=== PATIENT | female | born 1970 | race Caucasian/White ===

== ENCOUNTER 2025-02-24 21:53 | Emergency (ER) | payer MEDICARE, MEDICAID, SELFPAY ==
[2025-02-24 21:58] VITALS: BP 119/67; PULSE 90; RESP 20; TEMP 37.3; O2SAT 97; BMI 25.4
--- OUTSIDE RECORDS SUMMARY | 2025-02-24 22:22 | XMS_ITS | Encounter Summary ---
Author Organization [facility] Address [address] [place] [address] Care Team Providers Care Station Jailer Name Role Phone Brett Fleming MD Primary Care Provider [phone] Reason for Visit * Reason Onset Date Comments Lonnie - Lab order 02/20/2025 Encounter Details Date Type Department Care Team ([facility] st Contact Info) Description 02/20/2025 Telephone Internal Medicine - [place] [facility] [address] [place] [address] Brett Fleming MD [address] [address] Fleming - Lab order Social History Tobacco Use Types Packs/Day Years Used Date Smoking Tobacco: Former Cigarettes 0.5 26 S tarted: 1989 Alcohol Use Standard Drinks/Week Comments No 0 (1 standard drink = 0.6 oz pur e alcohol) Housing Instability Answer Date Recorde d Are you worried that in the next 2 months you may not have stable housing? No 02/11/2025 Food Access & Nutrition Answer Date Rec orded Do you have access to a vari ety of food including fruits and vegetables? No 02/11/2025 Access to Healthcare Answer Date Record ed Within the last 3 months, ho w many times did you visit the emergency department for your medical care? 0 02/11/2025 Health Literacy Answer Date Recorded How often do you need to hav e someone help you when you read instructions, pamphlets, or other written material from your doctor or pharmacy? Often 02/11/2025 Caregiver: How often do you need to have someone help you when you read instructions, pamphlets, or other written material from your doctor or pharmacy? Not on file 02/11/2025 Financial Risk Answer Date Recorded How hard is it for you to pa y for the very basics like food, housing, medical care, and air conditioning / heating? Very hard 02/11/2025 Transportation Answer Date Recorded Has the lack of transportati on kept you from meetings, work, or from getting things needed for daily living? Yes Has the lack of transportati on kept you from medical appointments or from getting medications? Yes 02/11/2025 Social Isolation Answer Date Recorded How often do you feel lonely or isolated from those around you? Sometimes 02/11/2025 Food Risk Answer Date Recorded Within the past 12 months we worried whether our food would run out before we got money to buy more. Often true 02/11/2025 Within the past 12 months th e food we bought just didn't last and we didn't have money to get more. Often true 02/11/2025 Dependent Care Answer Date Recorded Do you need help finding or paying for care for your loved ones. For example, early childhood aide classroom or elderly care for an older adult? No 02/11/2025 Education Answer Date Recorded Do you think completing more education or training, like finishing a GED, going to college, or learning a trade, would be helpful for you? Yes 02/11/2025 Employment and Income Answer Date Recor ded During the last four weeks, have you been actively looking for work? No 02/11/2025 Living Situation Answer Date Recorded What is your living situation? 0 02/11/2025 Education Answer Date Recorded What is the highest level of school you have completed or the highest degree you have received? Bachelor's degree (e.g., BA, AB, BS) 02/12/2025 Comments Unknown Sex and Gender Information Value Date Recorded Sex Assigned at Female 02/14/2025 12:38 PM EDT Legal Sex Female 7:44 PM EST Gender Identity Female 02/14/2025 12:38 PM EDT Sexual Orientation Not on file documented as of this encounter Progress Notes * Susan Cuba MA - 02/20/2025 4:14 PM EDT Pt aware. * Brett Fleming MD - 02/20/2025 4:01 PM EDT Lab ordered * Frank Gonzalez MA - 02/20/2025 2:[address] tb test order * Gabbie Stroud - 02/20/2025 1:35 PM EDT Pt called and stated she is in a Program that requires her to get TB testing done. She requested ifshe can have this ordered for her. Please advise. Please call pt when lab is ordered, . documented in this encounter Plan of Treatment Upcoming Encounters Date Type Department Care Team (Late st Contact Info) Description 08/14/2025 3:00 PM EDT Office Visit Internal Medicine - [address] [phone] Brett Fleming MD [address] [address] documented as of this encounter Visit Diagnoses Diagnosis Adult general medical examination- Primary Unspecified general medical examination documented in this encounter Additional Health Concerns Assessment Noted Time PHQ-9 Depression Total Score: 16 025 4:59 PM EDT documented as of this encounter Care Teams Station Jailer Relationship Specialty Start Date End Date Brett Fleming MD [address] [place] [id number] PCP - General Internal Medicine 08/20/24 documented as of this encounter
--- OUTSIDE RECORDS SUMMARY | 2025-02-24 22:22 | XMS_ITS | Encounter Summary ---
Author Organization [facility] Address [address] [place] [address] Care Team Providers Care Pre K Teacher Name Role Phone Brett Fleming MD Primary Care Provider [phone] Reason for Visit * Reason Onset Date Comments faxed form 02/20/2025 [facility] Encounter Details Date Type Department Care Team ([facility] st Contact Info) Description 02/20/2025 Telephone Internal Medicine - [address] [place] [address] Emilia Tyler MA faxed form ([facility]) Social History Tobacco Use Types Packs/Day Years [...] your loved ones. For example, early childhood associate teacher or elderly care for an older adult? [...] as of this encounter Progress Notes * Emilia Tyler MA - 02/20/2025 4:21 PM EDT [facility] pcp order form Attached office note 02/12/25, med & dx list TB test ordered. documented in this encounter Plan of Treatment Upcoming Encounters Date Type Department Care Team (Late st Contact Info) Description 08/14/2025 3:00 PM EDT Office Visit Internal Medicine - [place] [address] [address] Brett Fleming MD [address] [address] documented as of this encounter Visit Diagnoses Not on filedocumented in this encounter Additional Health Concerns Assessment Noted Time PHQ-9 Depression Total Score: 16 025 4:59 PM EDT documented as of this encounter Care Teams Pre K Teacher Relationship Specialty Start Date End Date Brett Fleming MD [address] [address] PCP - General Internal Medicine 08/20/24 documented as of this encounter
--- OUTSIDE RECORDS SUMMARY | 2025-02-24 22:22 | XMS_ITS | Clinical Summary ---
Author Organization [facility] Address [address] [place] [address] Phone Care Team Providers Care Pheresis Nurse Name Role Phone Brett Fleming MD Primary Care Provider [phone] Allergies Active Allergy Reactions Criticality Noted Date Comments Codeine 10/30/2024 Guaifenesin 04/21/2006 guiatuss AC caused sever skin sensations / Penicillins 01/03/2006 Sulfa (Sulfonamide Antibiotics) 01/03/2006 Medications buPROPion SR (WELLBUTRIN SR) 200 mg 12 hr tablet Take 1 Tablet by mouth 2 times daily. Active busPIRone (BUSPAR) 15 mg tablet Take 1 Tablet by mouth 3 times daily. Active diphenoxylate-atr opine (LOMOTIL) 2.5-0.025 mg per tablet Take 1 Tablet by mouth 4 times daily as needed. Active DULoxetine (Drizalma Sprinkle) 60 mg capsule, delayed rel sprinkle Take by mouth. Active ibandronate (BONIVA) 150 mg tablet Take 1 Tablet by mouth every 30 days. 08/13/20 24 025 Active rimegepant (Nurtec) 75 mg dispersible tablet Take by mouth. Active dicyclomine (BENTYL) 20 mg tablet Take 1 tablet (20 mg total) by mouth 4 (four) times a day. 120 each 11 10/30/19 25 026 Active cholestyramine (QUESTRAN) 4 gram powder Take 1 packet (4 g total) by mouth 3 (three) times a day with meals. Dissolve in 8 oz of liquid and drink before a meal 90 packet 11 10/30/19 026 Active ondansetron ODT (ZOFRAN-ODT) 4 mg disintegrating tablet DISSOLVE 1 TABLET ON THE TONGUE EVERY 8 HOURS NEEDED FOR NAUSEA 90 tablet 1 02/05/20 25 Active cloNIDine (CATAPRES) 0.1 mg tablet TAKE 1 TABLET BY MOUTH EVERY NIGHT AT BEDTIME NEEDED TO PREVENT NIGHT SWEATS DURING SLEEP 02/01/20 25 Active busPIRone (BUSPAR) 5 mg tablet Take 1 tablet (5 mg total) by mouth. 01/18/20 25 Active amphetamine-dextr oamphetamine (ADDERALL) 5 mg tablet Take 1 tablet (5 mg total) by mouth 2 (two) times a day. Max Daily Amount: 10 mg 01/03/20 25 Active clonazePAM (KlonoPIN) 1 mg tablet Take 1 tablet (1 mg total) by mouth 1 (one) time each day if needed. for anxiety Max Daily Amount: 1 mg 11/30/19 25 Active propranoloL (INDERAL) 10 mg tablet Take 1 tablet (10 mg total) by mouth 2 (two) times a day. Active famotidine (PEPCID) 40 mg tablet Take 1 tablet (40 mg total) by mouth 2 (two) times a day. 180 each 1 02/13/20 Active dicyclomine (BENTYL) 10 mg capsule Take 1 Capsule by mouth 4 times daily (before meals and nightly). 08/13/20 025 Discontinued(D ose adjustment) famotidine (PEPCID) 40 mg tablet Take 1 Tablet by mouth daily. 30 min before break fast 08/13/20 025 Discontinued loperamide (IMODIUM A-D) 2 mg tablet Take 1 Tablet by mouth 4 times daily as needed for Diarrhea. 08/13/20 025 Discontinued(N on-compliance) ondansetron ODT (ZOFRAN-ODT) 4 mg disintegrating tablet Take 1 Tablet by mouth every 8 hours as needed for Nausea. 08/13/20 24 025 Discontinued traZODone (DESYREL) 50 mg tablet Take 1 Tablet by mouth at bedtime. 025 Discontinued(N on-compliance) famotidine (PEPCID) 40 mg tablet Take 1 tablet (40 mg total) by mouth 1 (one) time each day. 90 tablet 1 02/08/20 25 025 Discontinued(R eorder) Active Problems Problem Noted Date Diagnosed Date Pain in joint, multiple sites 07/18/2006 Disturbance of skin sensation 07/18/2006 Overview (08/31/2024): diffuse pain Irritable bowel syndrome 07/18/2006 Tobacco use disorder 07/18/2006 Anxiety state 03/03/2006 Overview (08/31/2024): Panic attacks--psychiatry Esophageal reflux 03/03/2006 Lumbago 03/03/2006 Overview (08/31/2024): chronic: PT Shots tried Encounters Date Type Department Care Team Description 02/20/2025 Telephone Internal Medicine [facility] [address] [phone] Emilia Tyler [place] faxed form ([facility]care) 02/20/2025 Telephone Internal Medicine [facility] [address] [phone] Brett Fleming MD Khan - Lab order 02/12/2025 4:00 PM EDT Office Visit Internal Medicine [facility] [address] [phone] Brett Fleming MD Encounter for annual physical exam (Primary Dx); Anxiety state; Tobacco use disorder; Pain in both hands; Gastroesophageal reflux disease, unspecified whether esophagitis present; Bilateral carpal tunnel syndrome; Vitamin D deficiency; Encounter for lipid screening for cardiovascular disease; Other abnormal glucose; Other fatigue; Perimenopause; Localized osteoarthritis of hand, unspecified laterality; Encounter for screening mammogram for malignant neoplasm of breast; Chronic midline thoracic back pain 12/06/2024 12:46 PM EST - 12/06/2024 11:59 PM EST Hospital Encounter [facility] Scan [address] [place] [phone] Diarrhea, unspecified type; Nausea and vomiting, unspecified vomiting type; Incontinence of feces, unspecified fecal incontinence type; Abdominal cramping; Neutropenia, unspecified type (CMS/HCC V24); Disease of stomach and duodenum, unspecified; Other iron deficiency anemias Discharge Disposition: Home or Self Care from Last 3 Months Immunizations Name Administration Dates Next Due Td Tetanus diptheria (Tdvax) 7yo and older 12/03 Tdap Tetanus diptheria acell ular pertussis (Boostrix; Adacel) 7yo and older 02/12/2025 Surgical History Surgery Date Site/Laterality Comments CHOLECYSTECTOMY 05-04-04 PROCEDURE: HISTORICAL CHOLECYSTECTOMY Medical History Medical History Date Comments Anxiety state, unspecified 03/03/2006 DX:An xiety state, unspecified; COMMENT: Panic attacks Lumbago DX:Lumbago; COMM ENT: chronic: PT Shots tried Esophageal reflux 03/03/2006 DX:Esophageal reflux Irritable bowel syndrome DX:Irri table bowel syndrome Myalgia and myositis, unspecified DX:Myalgia and myositis, unspecified Unspecified asthma(493.90) DX:Un specified asthma(493.90) Family History Medical History Relation Name Comments Alcohol/Drug Brother 1 alcohol Diabetes Brother 2 not same brothe r Diabetes Father Other: pacemaker Father Anxiety disorder Mother Relation Name Status Comments Brother 1 Brother 2 Brother 3 Father Maternal Grandfather Maternal Grandmother Mother Paternal Grandfather Paternal Grandmother Social History Tobacco Use Types Packs/Day Years Used Date Smoking Tobacco: Former Cigarettes 0.5 26 S tarted: 1988 Tobacco Cessation:Counseling Given: Not Answered Alcohol Use Standard Drinks/Week Comments No 0 [...] care for your loved ones. For example, child development specialist or elderly care for an older adult? [...] PM EDT Sexual Orientation Not on file Obstetrics History Last Filed Vital Signs Vital Sign Reading Time Taken Comments Blood Pressure 118/80 02/12/2025 3:53 PM EDT Pulse 80 02/12/2025 3:53 PM EDT Temperature - - Respiratory Rate - - Oxygen Saturation 98% 02/12/2025 3:53 PM EDT Inhaled Oxygen Concentration - - Weight 72.1 kg (159 lb) 02/12/2025 3:53 PM EDT Height 154.9 cm (5' 1 ) 10/30/2024 12:56 PM EST Body Mass Index 30.04 10/30/2024 12:56 PM EST Plan of Treatment Upcoming Encounters Date Type Department Care Team (Late st Contact Info) Description 08/14/2025 3:00 PM EDT Office Visit Internal Medicine - [place] 175 [facility] [address] [place] [phone] Brett Fleming MD 175 [facility] [address] [place] [address] Health Maintenance Due Date Last Done Comments Breast Cancer Screening 1971 Hepatitis B Vaccines (1 of 3 - 19+ 3-dose series) 1990 Cervical Cancer Screening: P ap Smear 1992 Pneumococcal Vaccine: 50+ Years (1 of 1 - PCV) 2021 Zoster Vaccines (1 of 2) 2021 COVID-19 Vaccine (2023-2 5 season) 2024 Colorectal Cancer Screening: Colonoscopy 08/20/2024 HIV Screening 08/20/2024 Medicare Annual Wellness Visit 08/20/2024 Osteoporosis Screening (Bone Density Screening) 08/20/2024 Influenza Vaccine (Season Ended) 2025 Depression Screening 02/11/2026 02/11/2025 Social Influencers of Health Screening 02/11/2026 02/11/2025 Cholesterol Screening (Lipid Panel) 02/22/2030 02/22/2025, 10/11/2024, 12/03/2002 DTaP,Tdap,and Td Vaccines (3 - Td or Tdap) 02/12/2035 02/12/2025, 12/03/2002 Hepatitis C Screening Completed 10/11/2024 HIB Vaccines Aged Out No longer eligi ble based on patient's age to complete this topic HPV Vaccines Aged Out No longer eligi ble based on patient's age to complete this topic Hepatitis A Vaccines Aged Out No long er eligible based on patient's age to complete this topic IPV Vaccines Aged Out No longer eligi ble based on patient's age to complete this topic MMR Vaccines Aged Out No longer eligi ble based on patient's age to complete this topic Meningococcal ACWY Vaccine Aged Out N o longer eligible based on patient's age to complete this topic Meningococcal B Vaccine Aged Out No l onger eligible based on patient's age to complete this topic Pneumococcal Vaccine: Pediatrics (0 to 5 Years) and At-Risk Patients (6 to 64 Years) Aged Out No longer eligible b ased on patient's age to complete this topic RSV Immunization Patients Under 20 months Aged Out No longer eligible b ased on patient's age to complete this topic Varicella Vaccines Aged Out No longer eligible based on patient's age to complete this topic Procedures Procedure Name Priority Date/Time Associated Diagnosis Comments TRIIODOTHYRONINE FREE Routine 02/22/2025 12:33 PM EDT Encounter for annual physical exam Other fatigue FREE THYROXINE WITH REFLEX TO FREE TRIIODOTHYRONINE Routine 02/22/2025 12:33 PM EDT Encounter for annual physical exam Other fatigue INTERFERON GAMMA INTERPRETATION Routine 02/22/2025 12:33 PM EDT Adult general medical examination LACTATE DEHYDROGENASE Routine 02/22/2025 12:33 PM EDT Diarrhea, unspecified type Nausea and vomiting, unspecified vomiting type Incontinence of feces, unspecified fecal incontinence type Abdominal cramping CBC WITH AUTO DIFFERENTIAL Routine 02/22/2025 12:33 PM EDT Diarrhea, unspecified type Nausea and vomiting, unspecified vomiting type Incontinence of feces, unspecified fecal incontinence type Abdominal cramping INTERFERON GAMMA ANTIGEN 2 Routine 02/22/2025 12:33 PM EDT Adult general medical examination INTERFERON GAMMA ANTIGEN 1 Routine 02/22/2025 12:33 PM EDT Adult general medical examination INTERFERON GAMMA MITOGEN Routine 02/22/2025 12:33 PM EDT Adult general medical examination INTERFERON GAMMA NIL Routine 02/22/2025 12:33 PM EDT Adult general medical examination CBC AND DIFFERENTIAL Routine 02/22/2025 12:33 PM EDT Diarrhea, unspecified type Nausea and vomiting, unspecified vomiting type Incontinence of feces, unspecified fecal incontinence type Abdominal cramping COMPREHENSIVE METABOLIC PANEL Routine 02/22/2025 12:33 PM EDT Diarrhea, unspecified type Nausea and vomiting, unspecified vomiting type Incontinence of feces, unspecified fecal incontinence type Abdominal cramping FERRITIN Routine 02/22/2025 12:33 PM EDT Diarrhea, unspecified type Nausea and vomiting, unspecified vomiting type Incontinence of feces, unspecified fecal incontinence type Abdominal cramping Disease of stomach and duodenum, unspecified IRON Routine 02/22/2025 12:33 PM EDT Diarrhea, unspecified type Nausea and vomiting, unspecified vomiting type Incontinence of feces, unspecified fecal incontinence type Abdominal cramping Other iron deficiency anemias LIPASE Routine 02/22/2025 12:33 PM EDT Diarrhea, unspecified type Nausea and vomiting, unspecified vomiting type Incontinence of feces, unspecified fecal incontinence type Abdominal cramping AMYLASE Routine 02/22/2025 12:33 PM EDT Diarrhea, unspecified type Nausea and vomiting, unspecified vomiting type Incontinence of feces, unspecified fecal incontinence type Abdominal cramping HEMOGLOBIN A1C Routine 02/22/2025 12:33 PM EDT Encounter for annual physical exam Other abnormal glucose VITAMIN B12 Routine 02/22/2025 12:33 PM EDT Encounter for annual physical exam Other fatigue LIPID PANEL WITH REFLEX TO DIRECT LDL Routine 02/22/2025 12:33 PM EDT Encounter for annual physical exam Encounter for lipid screening for cardiovascular disease VITAMIN D 25 HYDROXY Routine 02/22/2025 12:33 PM EDT Encounter for annual physical exam Vitamin D deficiency THYROID STIMULATING HORMONE WITH REFLEX TO FREE T4 AND FREE T3 Routine 02/22/2025 12:33 PM EDT Encounter for annual physical exam Other fatigue INTERFERON GAMMA FOR TB, QUALITATIVE Routine 02/22/2025 12:33 PM EDT Adult general medical examination CT ABDOMEN PELVIS W CONTRAST Routine 12/06/2024 2:21 PM EST Diarrhea, unspecified type Nausea and vomiting, unspecified vomiting type Incontinence of feces, unspecified fecal incontinence type Abdominal cramping Neutropenia, unspecified type (CMS/HCC V24) Disease of stomach and duodenum, unspecified Other iron deficiency anemias HEPATITIS C ANTIBODY Routine 10/11/2024 2:01 PM EST Routine general medical examination at a health care facility Anxiety attack Irritable bowel syndrome with diarrhea from Last 3 Months or Most Recently Relevant to Health Maintenance Results * Interferon gamma interpretation (02/22/2025 12:33 PM EDT) [facility] Signature Quantiferon Plus Interpretation Negative Negative LAB CHEMISTRY METHOD 02/23/2025 10:00 AM EDT [facility] Blood Venous blood specimen / Unknown Venipuncture / Unknown 02/22/2025 12:33 PM EDT 02/22/2025 12:33 PM EDT Brett Fleming MD LAB BLOOD ORDERABLES Final Resul t Performing Organization Address [facility]/State/ZIP Co de Phone Number [facility] [address] [place] [address], [place] [phone] * Interferon gamma antigen 2 (02/22/2025 12:33 PM EDT) Blood Venous blood specimen / Unknown Venipuncture / Unknown 02/22/2025 12:33 PM EDT 02/22/2025 12:33 PM EDT Brett Fleming MD LAB BLOOD ORDERABLES Final Resul t [facility] [address] [place] [address], [place] [phone] * Inteferon gamma antigen 1 (02/22/2025 12:33 PM EDT) Blood Venous blood specimen / Unknown Venipuncture / Unknown 02/22/2025 12:33 PM EDT 02/22/2025 12:33 PM EDT us Brett Fleming MD LAB BLOOD ORDERABLES Final Resul t Performing Organization Address City/[facility]/ZIP Co de Phone Number [facility] [address] [place] [address], [place] [phone] * Interferon gamma mitogen (02/22/2025 12:33 PM EDT) Blood Venous blood specimen / Unknown Venipuncture / Unknown 02/22/2025 12:33 PM EDT 02/22/2025 12:33 PM EDT us Brett Fleming MD LAB BLOOD ORDERABLES Final Resul t Performing Organization Address City/[facility] Co de Phone Number [facility] [address] [place] [address], [place] [phone] * Interferon gamma NIL (02/22/2025 12:33 PM EDT) Blood Venous blood specimen / Unknown Venipuncture / Unknown 02/22/2025 12:33 PM EDT 02/22/2025 12:33 PM EDT us Brett Fleming MD LAB BLOOD ORDERABLES Final Resul t Performing Organization Address [facility] Co de Phone Number [facility] [address] [place] [address], [place] [phone] * (ABNORMAL) Thyroid stimulating hormone with reflex to free t4 and free t3 (02/22/2025 12:33 PM EDT) TSH 0.13(L) 0.40 - 4.00 mcIU/mL LAB CHEMISTRY METHOD 02/22/2025 7:03 PM EDT [facility] Blood Venous blood specimen / Unknown Venipuncture / Unknown 02/22/2025 12:33 PM EDT 02/22/2025 12:33 PM EDT Brett Fleming MD LAB BLOOD ORDERABLES Final Resul t Performing Organization Address [facility]/ZIP Co de Phone Number [facility] [address] [place] [address], [place] [phone] * Free thyroxine with reflex to free triiodothyronine (02/22/2025 12:33 PM EDT) Free T4 1.14 0.70 - 1.80 ng/dL LAB CHEMISTRY METHOD 02/22/2025 8:10 PM EDT [facility] Blood Venous blood specimen / Unknown Venipuncture / Unknown 02/22/2025 12:33 PM EDT 02/22/2025 12:33 PM EDT Brett Fleming MD LAB BLOOD ORDERABLES Final Resul t Performing Organization Address [facility] de Phone Number [facility] [address] [place] [address], [place] [phone] * Lipid panel with reflex to direct LDL (02/22/2025 12:33 PM EDT) Cholesterol 170 0 - 200 mg/dL LAB CHEMISTRY METHOD 02/22/2025 6:15 PM EDT [facility] Triglycerides 90 0 - 150 mg/dL LAB CHEMISTRY METHOD 02/22/2025 6:15 PM EDT [facility] HDL 63 >=40 mg/dL LAB CHEMISTRY METHOD 02/22/2025 6:15 PM EDT [facility] LDL Calculated 89 0 - 100 mg/dL LAB CHEMISTRY METHOD 02/22/2025 6:15 PM EDT [facility] VLDL Cholesterol [place] 18 mg/dL LAB CHEMISTRY METHOD 02/22/2025 6:15 PM EDT [facility] Non HDL Chol. (LDL+VLDL) 107 <145 mg/dL LAB CHEMISTRY METHOD 02/22/2025 6:15 PM EDT [facility] Chol/HDL Ratio 2.7 0.0 - 4.4 LAB CHEMISTRY METHOD 02/22/2025 6:15 PM EDT [facility] Blood Venous blood specimen / Unknown Venipuncture / Unknown 02/22/2025 12:33 PM EDT 02/22/2025 12:33 PM EDT us Brett Fleming MD LAB BLOOD ORDERABLES Final Resul t [facility] [address] [place] [address], [place] [phone] * (ABNORMAL) CBC auto differential (02/22/2025 12:33 PM EDT) WBC 6.3 4.8 - 10.8 K/mcL LAB HEMETOLOGY METHOD 02/22/2025 2:25 PM EDT [facility] RBC 3.90 3.80 - 4.80 M/mcL LAB HEMETOLOGY METHOD 02/22/2025 2:25 PM EDT [facility] Hemoglobin 12.2 11.5 - 16.0 g/dL LAB HEMETOLOGY METHOD 02/22/2025 2:25 PM EDT [facility] Hematocrit 36.7 35.0 - 47.0 % LAB HEMETOLOGY METHOD 02/22/2025 2:25 PM EDT [facility] MCV 94.1 79.0 - 98.0 FL LAB HEMETOLOGY METHOD 02/22/2025 2:25 PM EDT [facility] MCH 31.3 27.0 - 32.0 pcg LAB HEMETOLOGY METHOD 02/22/2025 2:25 PM EDT [facility] MCHC 33.2 32.0 - 37.0 g/dL LAB HEMETOLOGY METHOD 02/22/2025 2:25 PM EDT [facility] RDW 12.0 11.0 - 15.0 % LAB HEMETOLOGY METHOD 02/22/2025 2:25 PM T [facility] Platelets 366 130 - 400 K/mcL LAB HEMETOLOGY METHOD 02/22/2025 2:25 PM T [facility] MPV 10.7 7.0 - 11.0 FL LAB HEMETOLOGY METHOD 02/22/2025 2:25 PM EDT [facility] NRBC 0.0 <1.0 % LAB HEMETOLOGY METHOD 02/22/2025 2:25 PM [facility] NRBC Absolute 0.00 <0.10 K/mcL LAB HEMETOLOGY METHOD 02/22/2025 2:25 PM [facility] Neutrophils Relative 73.7 % LAB HEMETOLOGY METHOD 02/22/2025 2:25 PM [facility] Lymphocytes Relative 15.7 % LAB HEMETOLOGY METHOD 02/22/2025 2:25 PM [facility] Monocytes Relative 8.3 % LAB HEMETOLOGY METHOD 02/22/2025 2:25 PM [facility] Eosinophils Relative 0.3 % LAB HEMETOLOGY METHOD 02/22/2025 2:[facility] Basophils Relative 1.4 % LAB HEMETOLOGY METHOD 02/22/2025 2:25 PM EDT [facility] Immature Granulocytes Relative 0.6 % LAB HEMETOLOGY METHOD 02/22/2025 2:25 PM [facility] Neutrophils Absolute 4.61 1.50 - 7.00 K/mcL LAB HEMETOLOGY METHOD 02/22/2025 2:[facility] Lymphocytes Absolute 0.98(L) 1.00 - 5.00 K/mcL LAB HEMETOLOGY METHOD 02/22/2025 2:25 PM EDT [facility] Monocytes Absolute 0.52 0.20 - 1.00 K/[facility] LAB HEMETOLOGY METHOD 02/22/2025 2:25 PM EDT [facility] Eosinophils Absolute 0.02 0.00 - 0.50 K/[facility] LAB HEMETOLOGY METHOD 02/22/2025 2:25 PM EDT [facility] Basophils Absolute 0.09 0.00 - 0.20 K/[facility] LAB HEMETOLOGY METHOD 02/22/2025 2:25 PM EDT [facility] Immature Granulocytes Absolute 0.04(H) 0.00 - 0.03 K/[facility] LAB HEMETOLOGY METHOD 02/22/2025 2:25 PM EDT [facility] Blood Venous blood specimen / Unknown Venipuncture / Unknown 02/22/2025 12:33 PM EDT 02/22/2025 12:33 PM EDT us Robin OROPEZA LAB BLOOD ORDERABLES Final Resu lt [facility] [address] [place] [address], * (ABNORMAL) Vitamin D 25 hydroxy (02/22/2025 12:33 PM EDT) Vit D, 25-Hydroxy 16.0(L) 30.0 - 80.0 ng/mL LAB CHEMISTRY METHOD 02/22/2025 7:03 PM EDT [facility] Blood Venous blood specimen / Unknown Venipuncture / Unknown 02/22/2025 12:33 PM EDT 02/22/2025 12:33 PM EDT Brett Fleming MD LAB BLOOD ORDERABLES Final Resul t [facility] [address] [place] [address], * Triiodothyronine free (02/22/2025 12:33 PM EDT) T3, Free 347 230 - 420 pcg/dL LAB CHEMISTRY METHOD 02/22/2025 8:52 PM EDT [facility] Blood Venous blood specimen / Unknown Venipuncture / Unknown 02/22/2025 12:33 PM EDT 02/22/2025 12:33 PM EDT Brett Fleming MD LAB BLOOD ORDERABLES Final Resul t Performing Organization Address [facility]/ZIP Co de Phone Number [facility] [address] [place] [address], * Lipase (02/22/2025 12:33 PM EDT) Lipase 36 13 - 75 unit/L LAB CHEMISTRY METHOD 02/22/2025 6:15 PM EDT [facility] Blood Venous blood specimen / Unknown Venipuncture / Unknown 02/22/2025 12:33 PM EDT 02/22/2025 12:33 PM EDT Robin OROPEZA LAB BLOOD ORDERABLES Final Resu lt [facility] [address] [place] [address], [place] [phone] * Lactate dehydrogenase (02/22/2025 12:33 PM EDT) LDH 171 120 - 246 unit/L LAB CHEMISTRY METHOD 02/22/2025 6:15 PM EDT [facility] Blood Venous blood specimen / Unknown Venipuncture / Unknown 02/22/2025 12:33 PM EDT 02/22/2025 12:33 PM EDT Robin OROPEZA LAB BLOOD ORDERABLES Final Resu lt [facility] [address] [place] [address], [place] [phone] * Iron (02/22/2025 12:33 PM EDT) [facility] Iron 42 40 - 150 mcg/dL LAB CHEMISTRY METHOD 02/22/2025 6:15 PM EDT [facility] Blood Venous blood specimen / Unknown Venipuncture / Unknown 02/22/2025 12:33 PM EDT 02/22/2025 12:33 PM EDT us Robin OROPEZA LAB BLOOD ORDERABLES Final Resu lt Performing Organization Address [facility]/ZIP Co de Phone Number [facility] [address] [place] [address], [place] [phone] * Hemoglobin A1c (02/22/2025 12:33 PM EDT) [facility] Hemoglobin A1C 4.8 <6.5 % LAB CHEMISTRY METHOD 02/22/2025 10:18 PM EDT [facility] Mean Bld Glu Estim. 91 mg/dL LAB CHEMISTRY METHOD 02/22/2025 10:18 PM EDT [facility] Blood Venous blood specimen / Unknown Venipuncture / Unknown 02/22/2025 12:33 PM EDT 02/22/2025 12:33 PM EDT us Brett Fleming MD LAB BLOOD ORDERABLES Final Resul t Performing Organization Address [facility]/ZIP Co de Phone Number [facility] [address] [place] [address], [place] [phone] * Ferritin (02/22/2025 12:33 PM EDT) [facility] Ferritin 19 8 - 252 ng/mL LAB CHEMISTRY METHOD 02/22/2025 6:38 PM EDT [facility] Blood Venous blood specimen / Unknown Venipuncture / Unknown 02/22/2025 12:33 PM EDT 02/22/2025 12:33 PM EDT us Robin OROPEZA LAB BLOOD ORDERABLES Final Resu lt Performing Organization Address City/[facility]/ZIP Co de Phone Number [facility] [address] [place] [address], [place] [phone] * Vitamin B12 (02/22/2025 12:33 PM EDT) [facility] Vitamin B-12 648 250 - 900 pcg/mL LAB CHEMISTRY METHOD 02/22/2025 6:38 PM EDT [facility] Blood Venous blood specimen / Unknown Venipuncture / Unknown 02/22/2025 12:33 PM EDT 02/22/2025 12:33 PM EDT us Brett Fleming MD LAB BLOOD ORDERABLES Final Resul t Performing Organization Address [facility] de Phone Number [facility] [address] [place] [address], [place] [phone] * Amylase (02/22/2025 12:33 PM EDT) [facility] Amylase 68 25 - 115 unit/L LAB CHEMISTRY METHOD 02/22/2025 6:15 PM EDT [facility] Blood Venous blood specimen / Unknown Venipuncture / Unknown 02/22/2025 12:33 PM EDT 02/22/2025 12:33 PM EDT us Robin OROPEZA LAB BLOOD ORDERABLES Final Resu lt Performing Organization Address City/[facility]/ZIP Co de Phone Number [facility] [address] [place] [address], [place] [phone] * Comprehensive metabolic panel (02/22/2025 12:33 PM EDT) Sodium 141 133 - 145 mmol/L LAB CHEMISTRY METHOD 02/22/2025 6:38 PM [facility] Potassium 4.7 3.5 - 5.5 mmol/L LAB CHEMISTRY METHOD 02/22/2025 6:38 PM [facility] Chloride 109 96 - 110 mmol/L LAB CHEMISTRY METHOD 02/22/2025 6:38 PM [facility] CO2 27 21 - 32 mmol/L LAB CHEMISTRY METHOD 02/22/2025 6:38 PM [facility] Anion Gap 5 3 - 11 LAB CHEMISTRY METHOD 02/22/2025 6:38 PM [facility] Glucose 89 70 - 100 mg/dL LAB CHEMISTRY METHOD 02/22/2025 6:38 PM [facility] BUN 17 5 - 25 mg/dL LAB CHEMISTRY METHOD 02/22/2025 6:38 PM [facility] Creatinine 1.00 0.50 - 1.10 mg/dL LAB CHEMISTRY METHOD 02/22/2025 6:38 PM [facility] eGFR 68 >=60 mL/min/1. 73m2 LAB CHEMISTRY METHOD 02/22/2025 6:38 PM [facility] Comment:Calculation based on the??Chronic Kidney Disease Epidemiology Collaboration (CKD-EPI) equation refit??without adjustment for race. BUN/Creatinine Ratio 17.0 LAB CHEMISTRY METHOD 02/22/2025 6:38 PM [facility] Calcium 9.1 8.5 - 10.5 mg/dL LAB CHEMISTRY METHOD 02/22/2025 6:38 PM [facility] AST (SGOT) 14 10 - 42 unit/L LAB CHEMISTRY METHOD 02/22/2025 6:38 PM EDT [facility] ALT (SGPT) 23 10 - 60 unit/L LAB CHEMISTRY METHOD 02/22/2025 6:38 PM EDT [facility] Alkaline Phosphatase 105 42 - 121 unit/L LAB CHEMISTRY METHOD 02/22/2025 6:38 PM EDT [facility] Total Protein 6.7 6.0 - 8.0 g/dL LAB CHEMISTRY METHOD 02/22/2025 6:38 PM EDT [facility] Albumin 3.3 3.2 - 5.0 g/dL LAB CHEMISTRY METHOD 02/22/2025 6:38 PM EDT [facility] Total Bilirubin 0.4 0.0 - 1.4 mg/dL LAB CHEMISTRY METHOD 02/22/2025 6:38 PM EDT [facility] Blood Venous blood specimen / Unknown Venipuncture / Unknown 02/22/2025 12:33 PM EDT 02/22/2025 12:33 PM EDT us Robin OROPEZA LAB BLOOD ORDERABLES Final Resu lt [facility] [address] [place] [address], [place] [phone] * CT Abdomen Pelvis w Contrast (12/06/2024 2:21 PM EST) Anatomical Region Laterality Modality Body Computed Tomogra phy 12/07/2024 4:38 PM EST Impressions 12/07/2024 4:47 PM EST No acute abnormality. Large amount of fecal residue in the colon. No evidence of small bowel obstruction. Possible pelvic floor descent. ?? -------- FINAL REPORT -------- Dictated By: Rene Dallas Dictated Date: 12/07/2024 16:38 ET Assigned Physician: Rene Dallas Reviewed and Electronically Signed By: Rene Dallas Signed Date: 12/07/2024 16:47 ET Workstation ID: [id number] Transcribed By: Self Edit Transcribed Date: 12/07/2024 16:38 ET Narrative 12/07/2024 4:47 PM EST EXAMINATION: CT ABDOMEN/PELVIS WITH IV CONTRAST CLINICAL INFORMATION: Abdomen pain. ??Nausea, vomiting. Abnormal bowel habits. COMPARISON: None ?? TECHNIQUE: Multidetector CT. Helical examination of the abdomen and pelvis. Imaging performed after the IV administration of contrast. Reformatting in the coronal and sagittal planes. DLP: 1418 mGy-cm Dose optimization was performed including the use of low-dose iterative reconstruction technique with automatic exposure control based on patient size. Type of contrast: ISOVUE 370 Volume of IV contrast: 90 mL Volume of contrast discarded: 0 mL FINDINGS: LIVER: The right lobe of the liver measures 18.0 cm. The liver contour appears smooth. There is minimal prominence of the intrahepatic bile ducts. No suspicious focal liver lesion. ?? BILIARY TRACT: ??There are surgical clips in the expected region of the gallbladder. The common duct is mildly prominent but this can be seen following cholecystectomy. SPLEEN: The spleen is not enlarged. The spleen measures 7.8 cm. No focal abnormality. ?? PANCREAS: Within normal limits. ?? ADRENAL GLANDS: Normal ?? KIDNEYS: The kidneys enhance symmetrically. There is no suspicious renal mass. The renal pelvis is mildly prominent on each side. This could be physiologic. ?? GASTROINTESTINAL TRACT: ?I suspect some pelvic floor relaxation involving the posterior compartment. No rectocele. No definite defect in the sphincter mechanism. The levator sling is slightly asymmetric and smaller on the right. This is an equivocal finding. The distal colon contains a moderate amount of fecal residue. No localized wall thickening. There is a large amount of fecal residue throughout the remainder of the colon. The appendix is within normal limits. There is no small bowel dilation. No suspicious omental mass or collection. No suspicious abnormality of the stomach. There is no fat stranding. URINARY BLADDER: ??The bladder is nearly empty. No suspicious abnormality demonstrated. PELVIC VISCERA: ??Small calcification on the right side of the uterus. No definite endometrial mass. ABDOMINAL WALL: No significant hernia is appreciated. ?? LYMPHOVASCULAR STRUCTURES AND FLUID: There is no abdominal aortic aneurysm. The portal vein enhances. There are no enlarged lymph nodes. There is no free intraperitoneal fluid ?? VISUALIZED LOWER CHEST: No suspicious abnormality. ?? MUSCULOSKELETAL: No acute or suspicious osseous abnormality. Procedure Note Rene Dallas MD - 12/07/2024 EXAMINATION: CT ABDOMEN/PELVIS WITH IV CONTRAST CLINICAL INFORMATION: Abdomen pain. Nausea, vomiting. Abnormal bowel habits. COMPARISON: None TECHNIQUE: Multidetector CT. Helical examination of the abdomen and pelvis. Imaging performed after the IV administration of contrast. Reformatting in the coronal and sagittal planes. DLP: 1418 mGy-cm Dose optimization was performed including the use of low-dose iterativereconstruction technique with automatic exposure control based on patientsize. Type of contrast: ISOVUE 370 Volume of IV contrast: 90 mL Volume of contrast discarded: 0 mL FINDINGS: LIVER: The right lobe of the liver measures 18.0 cm. The liver contourappears smooth. There is minimal prominence of the intrahepatic bileducts. No suspicious focal liver lesion. BILIARY TRACT: There are surgical clips in the expected region of thegallbladder. The common duct is mildly prominent but this can be seenfollowing cholecystectomy. SPLEEN: The spleen is not enlarged. The spleen measures 7.8 cm. No focalabnormality. PANCREAS: Within normal limits. ADRENAL GLANDS: Normal KIDNEYS: The kidneys enhance symmetrically. There is no suspicious renalmass. The renal pelvis is mildly prominent on each side. This could bephysiologic. GASTROINTESTINAL TRACT: I suspect some pelvic floor relaxationinvolving the posterior compartment. No rectocele. No definite defect inthe sphincter mechanism. The levator sling is slightly asymmetric andsmaller on the right. This is an equivocal finding. The distal colon contains a moderate amount of fecal residue. No localizedwall thickening. There is a large amount of fecal residue throughout theremainder of the colon. The appendix is within normal limits. There is nosmall bowel dilation. No suspicious omental mass or collection. Nosuspicious abnormality of the stomach. There is no fat stranding. URINARY BLADDER: The bladder is nearly empty. No suspicious abnormalitydemonstrated. PELVIC VISCERA: Small calcification on the right side of the uterus. Nodefinite endometrial mass. ABDOMINAL WALL: No significant hernia is appreciated. LYMPHOVASCULAR STRUCTURES AND FLUID: There is no abdominal aorticaneurysm. The portal vein enhances. There are no enlarged lymph nodes.There is no free intraperitoneal fluid VISUALIZED LOWER CHEST: No suspicious abnormality. MUSCULOSKELETAL: No acute or suspicious osseous abnormality. IMPRESSION: No acute abnormality. Large amount of fecal residue in the colon. No evidence of small bowelobstruction. Possible pelvic floor descent. -------- FINAL REPORT -------- Dictated By: Rene Dallas Dictated Date: 12/07/2024 16:38 ET Assigned Physician: Rene Dallas Reviewed and Electronically Signed By: Rene Dallas Signed Date: 12/07/2024 16:47 ET Workstation ID: [id number] Transcribed By: Self Edit Transcribed Date: 12/07/2024 16:38 ET us Robin OROPEZA IMG CT PROCEDURES Final Result * Hepatitis C antibody (10/11/2024 2:01 PM EST) Hepatitis C Antibody Negative Negative LAB CHEMISTRY METHOD 10/11/2024 7:15 PM EST [facility] Blood Venous blood specimen / Unknown Venipuncture / Unknown 10/11/2024 2:01 PM EST 10/11/2024 2:01 PM EST Brett Fleming MD LAB BLOOD ORDERABLES Final Resul t [facility] [address] [place] [address], [place] [phone] from Last 3 Months or Most Recently Relevant to Health Maintenance Insurance MEDICARE Member Subscriber Plan / Payer (Ef fective 1998-Present) Name:Becca benavides Member ID:[id number] Relation to Subscriber:Self Name:Ramandeep Becca Camara Subscriber ID:[id number] Payer ID:Not on file Group ID:Not on file Type:Medicare Address: [place] [id number] MEDICA[place] - [place] Care Teams Pheresis Nurse Relationship Specialty Start Date End Date Brett Fleming MD [address] [place] [id number] PCP - General Internal Medicine 08/20/24
--- OUTSIDE RECORDS SUMMARY | 2025-02-24 22:22 | XMS_ITS | Patient Health Record ---
Author Organization [facility] Billing Info Address [address] [place] [address] [place] [address] Care Team Providers Care Diet Therapist Name Role Phone DEBBIE RIVERA Unavailable [phone] Allergies Allergen (clinical drug ingredient) Drug/Non Drug Allergy documented on EMR Reaction Allergy Type Onset Date Status Sulfa Unknown Drug Allergy Active Reason For Referral No Information Medications Medication SIG (Take, Route, Frequency, Duration) Notes Start Date End Date Status Gabapentin 600 MG 1 tablet Orally Once a day for 30 day(s) Active Lansoprazole 15 MG 1 capsule Orally Twi ce a day Active Hydrocodone-Acetaminophen 10-325 MG 1 tablet as needed Orally every 6 hrs Active BuPROPion HCl 100 MG 1 tablet Orally Twi ce a day for 30 day(s) Active Omeprazole 20 MG 1 capsule Orally twi ce a day Active Clonazepam 2 MG 1 tablet Orally twic e a day Active Ranitidine HCl 150 MG 1 capsule Orally O nce a day for 30 day(s) Active Dicyclomine HCl 20 MG 1 tablet Orally Fo ur times a day Active Cyclobenzaprine HCl 10 MG 1 tablet as ne eded Orally Two times a day Active Duloxetine HCl 60 MG 1 capsule Orally Tw ice a day Active Social History Tobacco Status: Question Answer Notes Patient is a non tobacco user Problems Problem Type SNOMED Code ICD Code Onset Dates Problem Status W/U Status Risk Notes Problem [id number] Closed nondisplaced fracture of neck of right radius, initial encounter (S52.134A) Active confirmed Plan Of Treatment No Information Insurance Providers Payer Name Payer Address Payer Phone Subscriber Number Group Number Insured Name Patient Relationship to Insured Coverage Start Date Coverage End Date [employer] [address] [place], [place] [phone] [id number] Becca Sabillon Self - patient is the insured 9 9 Medical (General) History Medical History History ICD Code Depression Anxiety disorder anema Surgical History Surgery Date(Month/Year) Endometrial Ablation gall bladder surgery Hospitalization History Reason Date(Month/Year) see surgical hx
[2025-02-24 22:27] LABS: MANUAL DIFF FLAG NO
[2025-02-24 22:32] LABS: Appearance Urine Clear; Color Urine Yellow; Glucose Urine UA Negative (Negative); Leukocyte Esterase Urine Moderate (2+) (Negative); Nitrite Urine Negative (Negative); PH 5.5 (5.0-9.0); Specific Gravity - Urine 1.015 (1.005-1.025); UMIC TRIGGER UACC YES; Urine Blood Large (3+) (Negative); Urine Ketones Negative (Negative); Urine Protein 100 (2+) mg/dL (Neg-Trace)
[2025-02-24 22:35] LABS: Bacteria Urine None Seen (None Seen); Hyaline Casts Urine 0-2 /LPF (0-2); RBC Urine >20 /HPF (0-2); UACC Culture Trigger YES; WBC Urine >50 /HPF (0-5)
[2025-02-24 22:40] LABS: Basophils Absolute Auto 0.1 X10*3/uL (0.0-0.2); Basophils Percent Auto 0.4 % (0-2); Hematocrit 36.3 % (37.0-47.0); Hemoglobin 12.6 g/dl (12.0-16.0); Imm Gran Abs Auto 0.07 X10*3/uL (0.00-0.03); Imm Gran Pct Auto 0.5 % (0.0-0.4); Lymphocytes Absolute Auto 1.3 X10*3/uL (1.2-4.9); Lymphocytes Percent Auto 9.7 % (20-40); Mean Corpuscular HGB Conc 34.7 g/dl (31.0-35.0); Mean Corpuscular Hemoglobin 31.2 pg (27.0-33.0); Mean Corpuscular Volume 89.9 fL (80.0-98.0); Mean Platelet Volume 10.6 fL (9.4-12.3); Monocytes Absolute Auto 1.1 X10*3/uL (0.1-1.2); Monocytes Percent Auto 8.3 % (2-11); Neutrophils Absolute Auto 10.9 x10*3/uL (2.0-8.3); Neutrophils Percent Auto 81.1 % (45-73); Platelet Count 314 X10*3/uL (160-400); Red Blood Count 4.04 X10*6/uL (4.20-5.50); Red Cell Distribution Width 12.1 % (11.0-16.0); White Blood Count 13.4 X10*3/uL (4.8-10.8)
[2025-02-24 22:45] LABS: Amphetamine Screen Urine POSITIVE (Not Detect); Barbiturates, Urine Not Detected (Not Detect); Benzodiazepines Screen Urine Not Detected (Not Detect); Buprenorphine Scr Not Detected (Not Detect); Cannabinoid Screen Urine POSITIVE (Not Detect); Cocaine Screen Urine Not Detected (Not Detect); Fentanyl, urine Not Detected (Not Detect); Methadone Screen, Urine Not Detected (Not Detect); Opiate Screen Urine Not Detected (Not Detect); Oxycodone Screen Urine Not Detected (Not Detect); Phencyclidine Screen Urine Not Detected (Not Detect)
[2025-02-24 22:46] LABS: Alanine Aminotransferase 21 U/L (0-31); Alkaline Phosphatase 103 U/L (39-117); Anion Gap 13 (12-20); Aspartate Amino Transferase 25 U/L (5-31); Bilirubin Direct 0.2 mg/dL (0.0-0.5); Bilirubin Total 0.4 mg/dL (0.0-1.0); Blood Urea Nitrogen 17 mg/dL (9-16); Calcium 9.5 mg/dL (8.4-10.2); Carbon Dioxide 24 mmol/L (22-29); Chloride 107 mmol/L (96-108); Creatinine Clr Calc Pharmacy 60.5; Estimated Glomerular Filt Rate > 60; Glucose Random 121 mg/dL (60-115); Lipase 13 U/L (8-78); Potassium 3.6 mmol/L (3.3-5.1); Sodium 140 mmol/L (135-145); Total Protein 7.4 g/dL (6.5-8.0)
--- NOTE | 2025-02-24 22:58 | ED.GENADULT ---
HPI - General Adult General Chief complaint: General Medical Stated complaint: been w/out symbalta over 1wk/vomiting today Time Seen by Provider: 02/24/25 22:46 Source: patient Mode of arrival: ambulatory Limitations: no limitations History of Present Illness ED Provider: Dr. Carolyn Meneses HPI narrative: Patient comes to the emergency room complaining of a week of diffuse body aches, generalized malaise, nausea vomiting. Patient states that she ran out of duloxetine about a week ago, it isn't clear what happened with her insurance versus renewal prescription. Patient states that she already contacted her Cymbalta prescriber and will likely get a refill within the legs few days. Patient complaining of pain all over. Denies fever chills. Patient reports that despite taking Zofran p.o. every 6 hours, she is still nauseous and occasionally vomiting. Related Data Previous Rx's ?Medication ?Instructions ?Recorded duloxetine 60 mg capsule,delayed 60 mg PO BID 2 weeks #28 caps 02/24/25 release levofloxacin 500 mg tablet 500 mg PO DAILY #9 tabs 02/24/25 prochlorperazine maleate 5 mg 5 mg PO TID PRN nausea and 02/24/25 tablet (Compazine) vomiting #14 tabs Allergies Allergy/AdvReac Type Severity Reaction Status Date / Time Sulfa (Sulfonamide Allergy Diarrhea Verified 02/24/25 22:02 Antibiotics) Review of Systems Review of Systems: Constitutional : No Weight loss, No Fever, No Chills, No Night Sweats, No Fatigue, No Malaise ENT/Mouth : No Hearing loss, No Ear Pain, No Nasal Congestion, No Sinus Pain, No Hoarseness, No sore throat, No Rhinorrhea, No Swallowing Difficulty Eyes: No Eye Pain, No Swelling, No Redness, No Foreign Body, No Discharge, No Vision Changes Cardiovascular : No Chest Pain, No SOB, No Dyspnea on Exertion, No Orthopnea, No Edema, No Palpitations Respiratory : No Cough, No Sputum, No Wheezing, No Smoke Exposure, No Dyspnea Gastrointestinal : Complaining of nausea vomiting, No Diarrhea, No Constipation, No abdominal Pain, No Hematochezia, No Melena Genitourinary : no irregular bleeding, complaining of Dysuria, No Urinary Frequency, No Hematuria, No Urinary Incontinence, No Urgency, No Flank Pain, No Urinary Flow Changes, No Hesitancy Musculoskeletal : No joint pain, complaining of diffuse myalgias Skin : No Skin Lesions, No rash Neuro : No Weakness, No Numbness, No Paresthesias, No Loss of Consciousness, No Dizziness, No Headache Psych : No Anxiety/Panic, No Depression, No SI/HI/AH/VH, No Social Issues, Heme/Lymph: No Bruising, No Bleeding,No Lymphadenopathy Endocrine : No Polyuria, No Polydipsia, No Temperature Intolerance [facility] Past Medical History Medical History (Updated 02/24/25 @ 23:06 by Carolyn Meneses MD) Neuropathic pain Social History Social History Advance Directives: No Advance Directives Information Provided: No Do you have a plan to hurt others: No Plan Physical Exam ED Vital Signs: Vital Signs - 24 hr 02/24/25 21:58 Temperature 99.2 F Pulse Rate 90 Respiratory Rate 20 Blood Pressure 119/67 Pulse Oximetry 97 Oxygen Delivery Method Room Air BMI result Body Mass Index 25.4 Const Other: Appearance: Alert. Oriented X3. No acute distress. Eyes: Pupils equal, round and reactive to light. ENT: Pharynx normal. Neck: Normal inspection. Neck supple. No lymph nodes noted. No crepitus CVS: Normal heart rate and rhythm. Pulses normal. Normal S1 and S2 Respiratory: No respiratory distress. Breath sounds normal. No Wheezing. No rales Abdomen: Soft and nontender. No rigidity. No distention. Back: Diffuse pain in the entire back. Skin: Skin warm and dry. Normal skin color. Normal skin turgor. Extremities: No lower extremity edema. No Lacerations. No Rash Neuro: Oriented X 3. No motor deficit. No sensory deficit. Moving all extremities. No slurred speech. CN 2 through 12 grossly intact Psych: calm, cooperative, normal affect Medical Decision Making Medical Decision Making MDM Narrative: My interpretation of labs: Patient's white blood cell count 13.4, normal chemistry, UTI positive. U tox positive for amphetamines and THC. Patient states that she has a diffuse back pain, unclear if she has flank pain from her fibromyalgia versus medication withdrawal versus pyelonephritis Patient admits that she has been having burning with urination, but states that she is hurting all the time everywhere and has not specifically noticed dose symptoms. Patient states that she has not had any fever or chills. Patient was given the 1st dose of levofloxacin here in the emergency room. Treating empirically for possible pyelonephritis. Patient definitely has a UTI. Differential Diagnosis Differential Diagnoses: The differential diagnosis associated with the presentation includes (As above) Lab Data MDM Lab Attestation statement: I reviewed the patient's lab results. 02/24/25 22:19 02/24/25 22:19 Labs: Lab Results 02/24/25 02/24/25 Range/Units 22:19 22:21 WBC 13.4 H (4.8-10.8) X10*3/uL RBC 4.04 L (4.20-5.50) X10*6/uL Hgb 12.6 (12.0-16.0) g/dl Hct 36.3 L (37.0-47.0) % MCV 89.9 (80.0-98.0) fL MCH 31.2 (27.0-33.0) pg MCHC 34.7 (31.0-35.0) g/dl RDW 12.1 (11.0-16.0) % Plt Count 314 (160-400) X10*3/uL MPV 10.6 (9.4-12.3) fL Immature Gran % (Auto) 0.5 H (0.0-0.4) % Neut % (Auto) 81.1 H (45-73) % Lymph % (Auto) 9.7 L (20-40) % [place] % (Auto) 8.3 (2-11) % Eos % (Auto) 0.0 (0-4) % Baso % (Auto) 0.4 (0-2) % Lymph # (Auto) 1.3 (1.2-4.9) X10*3/uL [place] # (Auto) 1.1 (0.1-1.2) X10*3/uL Eos # (Auto) 0.0 (0.0-0.4) X10*3/uL Baso # (Auto) 0.1 (0.0-0.2) X10*3/uL Abs Immat Gran (auto) 0.07 H (0.00-0.03) X10*3/uL Absolute Neuts (auto) 10.9 H (2.0-8.3) x10*3/uL Absolute Nucleated RBC 0.000 (0.0-0.012) X10*3/uL Nucleated RBC % (auto) 0.0 (0.0-0.2) /100WBC Sodium 140 (135-145) mmol/L Potassium 3.6 (3.3-5.1) mmol/L Chloride 107 (96-108) mmol/L Carbon Dioxide 24 (22-29) mmol/L Anion Gap 13 (12-20) BUN 17 H (9-16) mg/dL Creatinine 0.90 (0.5-1.4) mg/dL Estim Creat Clear Calc 60.5 Estimated GFR > 60 Random Glucose 121 H (60-115) mg/dL Calcium 9.5 (8.4-10.2) mg/dL Total Bilirubin 0.4 (0.0-1.0) mg/dL Direct Bilirubin 0.2 (0.0-0.5) mg/dL AST 25 (5-31) U/L ALT 21 (0-31) U/L Alkaline Phosphatase 103 (39-117) U/L Total Protein 7.4 (6.5-8.0) g/dL Albumin 4.0 (3.5-5.0) g/dL Lipase 13 (8-78) U/L Urine Color Yellow Urine Appearance Clear Urine pH 5.5 (5.0-9.0) Ur Specific [place] 1.015 (1.005-1.025) Urine Protein 100 (2+) H (Neg-Trace) mg/dL Urine Glucose (UA) Negative (Negative) mg/dL Urine Ketones Negative (Negative) mg/dL Urine Blood Large (3+) H (Negative) Urine Nitrite Negative (Negative) Ur Leukocyte Esterase Moderate (2+) H (Negative) Urine RBC >20 H (0-2) /HPF Urine WBC >50 H (0-5) /HPF Ur Squamous Epith Cells 3-5 (0-2) /HPF Urine Bacteria None Seen (None Seen) Hyaline Casts 0-2 (0-2) /LPF Urine Opiates Screen Not Detected (Not Detect) Ur Buprenorphine Scrn Not Detected (Not Detect) ng/mL Ur Oxycodone Screen Not Detected (Not Detect) ng/mL Urine Methadone Screen Not Detected (Not Detect) ng/mL Urine Fentanyl Screen Not Detected (Not Detect) Ur Barbiturates Screen Not Detected (Not Detect) Ur Phencyclidine Scrn Not Detected (Not Detect) Ur Amphetamines Screen POSITIVE H (Not Detect) U Benzodiazepines Scrn Not Detected (Not Detect) Urine Cocaine Screen Not Detected (Not Detect) U Marijuana (THC) Screen POSITIVE H (Not Detect) Discharge Plan Discharge Clinical Impression: UTI (urinary tract infection), Medication refill, Nausea & vomiting, Myalgia Patient Disposition: Home, Self-Care Instructions: Urinary Tract Infection in Women (ED), Acute Nausea and Vomiting (DC), Medicine Refill (ED) Additional Instructions: Please follow-up with your primary care physician tomorrow. If you have any worsening or new symptoms, please return to the emergency room or call 911 Prescriptions: New duloxetine 60 mg capsule,delayed release(DR/EC) 60 mg PO BID 14 Days Qty: 28 0RF prochlorperazine maleate [Compazine] 5 mg tablet 5 mg PO TID PRN (Reason: nausea and vomiting) Qty: 14 0RF levofloxacin 500 mg tablet 500 mg PO DAILY Qty: 9 0RF Print Language: Tunisian
[2025-02-25] MEDS: levoFLOXacin 500 MG TABLET PO (00:08)
[2025-02-25 00:11] VITALS: BP 111/78; PULSE 89; RESP 28; O2SAT 97
--- NOTE | 2025-02-25 00:22 | PC.NURSE ---
pt is ready for discharge after house sup brings her medication that is not available in the pyxis
[2025-02-25] MEDS: Prochlorperazine Maleate 5 MG TABLET PO (00:40)
--- NOTE | 2025-02-25 00:41 | PC.NURSE ---
pt med arrived medicated and ready for discharg.
[2025-02-25 00:44] VITALS: BP 111/78; PULSE 89; RESP 28; TEMP 37; O2SAT 97
== END 2025-02-25 00:45 | disposition home or self-care (01) ==
PROVIDERS: Emergency Provider Emergency Medicine
DX: N39.0 Urinary tract infection, site not specified (principal); R11.2 Nausea with vomiting, unspecified; M79.10 Myalgia, unspecified site; F12.90 Cannabis use, unspecified, uncomplicated; Z76.0 Encounter for issue of repeat prescription; Z79.899 Other long term (current) drug therapy; Z51.81 Encounter for therapeutic drug level monitoring
CPT/HCPCS: 36415; 80048; 80076; 80307; 81001; 83690; 85025; 87086; 87088; 87186; 99284

== ENCOUNTER 2025-04-14 12:48 | Outpatient (REF) | payer MEDICARE, MEDICAID, SELFPAY ==
--- NOTE | ~2025-04-14 | MR_ITS ---
EXAMINATION: MR THORACIC SPINE WITHOUT AND WITH CONTRAST CLINICAL INFORMATION: Reason MS diagnosis. Weakness and pain in all extremities. COMPARISON: None available TECHNIQUE: Multiplanar multisequence MR imaging of the thoracic spine was done before and after the administration of 7 mL Gadavist. Examination was performed on a 1.5 Colleen Siemens high-field unit. FINDINGS: ALIGNMENT: -Normal. -No subluxations. -Normal kyphosis. VERTEBRAL BODIES AND BONE MARROW: -No compression deformities, or abnormal bone marrow edema. No abnormal infiltrating bone marrow signal. DISC SPACES AND ENDPLATES: -Mild loss of disc signal at T8-T9, with preservation of the remaining discs. PARASPINAL SOFT TISSUES: -Normal. No edema or abnormal fluid collection. -The aorta is normal in caliber. -Mildly patulous esophagus incidentally noted. -No pleural effusions. SPINAL CORD: -Normal in signal throughout. No discrete signal abnormality. -No cord expansion or thinning. -No cord impingement or central canal stenosis. -No abnormal intra-axial or extra medullary enhancement present. -The conus terminates at the superior T12 level and is normal in signal and morphology. SPINAL LEVELS: C7-T1: No central canal or neural foraminal narrowing. T1-T2: No central canal or neural foraminal narrowing. T2-T3: No central canal or neural foraminal narrowing. T3-T4: No central canal or neural foraminal narrowing. T4-T5: No central canal or neural foraminal narrowing. T5-T6: No central canal or neural foraminal narrowing. T6-T7: No central canal or neural foraminal narrowing. T7-T8: No central canal or neural foraminal narrowing. T8-T9: There is a right paracentral and lateral shallow disc extrusion with mild superior migration. This indents upon the ventral thecal sac but does not contact the cord. There is minimal central canal stenosis. The neural foramen are patent. T9-T10: There is no central canal or neural foraminal narrowing. T10-T11: There is no central canal or neural foraminal narrowing. There are mild hypertrophic degenerative facet changes. T11-T12: No central canal or neural foraminal narrowing. There are mild hypertrophic degenerative facet changes. T12-L1: No central canal or neural foraminal narrowing. There are mild hypertrophic degenerative facet changes. MR/MR thoracic spine wo/w con IMPRESSION: 1. No cord signal abnormality or abnormal enhancement identified. No cord expansion or thinning. 2. There is a small disc extrusion in the right paracentral region at T8-T9, without significant central canal narrowing. 3. No significant central canal or neural foraminal narrowing at any level. 4. Mild degenerative disc changes at T8-9. Electronically signed by: Tyrone Monge MD 04/15/2025 02:59 PM EDT
--- NOTE | ~2025-04-14 | MR_ITS ---
EXAMINATION: MR CERVICAL SPINE WITHOUT AND WITH CONTRAST CLINICAL INFORMATION: Recent diagnosis of MS. Weakness and pain in all extremities. COMPARISON: None TECHNIQUE: Multiplanar multisequence MR imaging of the cervical spine was done prior to and without the administration IV gadolinium. 7 mL IV Gadavist administered. Examination was performed on a 1.5 Colleen Siemens unit, using standard sequences. FINDINGS: CORONAL ALIGNMENT: -Normal. SAGITTAL ALIGNMENT: -Minimal reversal of the normal lordosis centered at C4. -There is a 2 mm degenerative retrolisthesis of C4 on C5. CRANIOCERVICAL JUNCTION/C1-2 ARTICULATIONS: -Intact and aligned. Mild degenerative changes of the anterior atlantoaxial joint. VERTEBRAL BODIES/BONE MARROW: -There is no evidence of fracture or compression deformity. There are mild edematous type endplate changes present at C4-5 and C5-6. -There is no additional bone marrow edema or abnormal infiltrating bone marrow signal. DISCS: -There is moderate to severe focal loss of disc height and signal at C4-5 and C5-6. -There is mild loss of disc signal at C3-4. CERVICAL CORD: -Normal in caliber and signal throughout. There is no focal signal abnormality present. There is no expansion or thinning. -There is no abnormal enhancement in the intra or extra medullary compartment. PARAVERTEBRAL SOFT TISSUES: -There is no prevertebral soft tissue edema or abnormal fluid collection. -The thyroid is obscured by a saturation band. VISUALIZED INTRACRANIAL STRUCTURES: -Within normal limits. No signal abnormality seen in the posterior fossa. AXIAL DISC SPACE IMAGING: C2-C3: Mild hypertrophic degenerative facet changes bilaterally, resulting in mild to moderate bilateral neural foraminal stenosis. There is no central canal narrowing. C3-C4: There is a small central disc protrusion, which indents upon the ventral thecal sac but does not contact the cord. Minimal hypertrophic degenerative facet changes bilaterally. No central canal or neural foraminal narrowing. C4-C5: Shallow disc osteophytic ridge complex present, contiguous with right greater than left uncinate hypertrophic changes. This results in minimal central canal narrowing. Normal facets. Mild bilateral neural foraminal narrowing. C5-C6: Shallow disc osteophytic ridge complex present, contiguous with bilateral mild to moderate uncinate spurring. This results in minimal central canal narrowing. Normal facets. Mild right greater than left neural foraminal narrowing. C6-C7: No central canal or neural foraminal narrowing. C7-T1: No central canal or neural foraminal narrowing. MR/MR cervical spine wo/w con IMPRESSION: 1. No cord signal abnormality or abnormal enhancement identified. 2. Spondylosis relatively confined to C4-5 and C5-6, without significant central canal narrowing or cord impingement. 3. Degenerative disc changes with edematous endplate changes at C4-5 and C5-6. Electronically signed by: Tyrone Monge MD 04/15/2025 02:15 PM EDT
[2025-04-14] MEDS: gadobutroL 7.5 ML VIAL IVPUSH (13:45)
== END 2025-04-14 12:49 | disposition home or self-care (01) ==
LOC: HO.MRI 12:48
PROVIDERS: PCP Student in an Organized Health Care Education/Training Program; Visit Provider Psychiatry & Neurology Neurology
DX: G35 Multiple sclerosis (principal)
CPT/HCPCS: 72156; 72157; A9585

== ENCOUNTER → 2025-04-14 13:03 | Outpatient (BNV) | payer MEDICARE, MEDICAID, SELFPAY | PROVIDERS: PCP Student in an Organized Health Care Education/Training Program; Visit Provider Radiology Diagnostic Radiology | DX: M47.812 Spondylosis without myelopathy or radiculopathy, cervical region (principal); M50.321 Other cervical disc degeneration at C4-C5 level; M50.322 Other cervical disc degeneration at C5-C6 level; R53.1 Weakness; M79.642 Pain in left hand; M79.641 Pain in right hand; M79.605 Pain in left leg; M79.604 Pain in right leg; M54.6 Pain in thoracic spine | CPT/HCPCS: 72156; 72157 ==

== ENCOUNTER 2025-05-13 15:25 | Outpatient (AMB) | payer MEDICARE, MEDICAID, SELFPAY ==
--- NOTE | 2025-05-13 15:29 | MHC.OFFVIS ---
Intake Visit Reasons: after MRI Allergies carisoprodol (From Soma) Allergy (Unknown, Verified 05/07/25 13:42) Unknown Sulfa (Sulfonamide Antibiotics) Allergy (Verified 02/24/25 22:02) Diarrhea HPI Comments Details: 54 yo woman probably with chronic MS. She was initially seen in Nov when she said that she has moved to this area from [place] due to health issues. (She carried diagnoses of depression, anxiety/panic disorder, headaches, and chronic Multiple Sclerosis. She had suffered from psychological symptoms all her life but her physical symptoms started around [id number]. Her first symptom was loss of bowel control. One day her leg gave away and she fell down. Her bladder control was also not good. She never was investigated in [place] as she did not have health insurance.) MRI of brain in December of 2024 [facility] and [place] revealed extensive white matter lesions, not to much periventricular, with significant cerebellar and cerebral atrophy, which suggested possibility of demyelinating disease or chronic multiple sclerosis. MRI of cervical and thoracic spine at [facility] in March of 2025 did not reveal any significant pathology. FOR[facility], [facility] Medical History (Updated 05/13/25 @ 15:37 by Gisele Dailey MD) Migraine Multiple sclerosis Neuropathic pain Social History Alcohol intake: never Substance Use Type: Marijuana Review of Systems Const Details: Constitutional:?No fever, chills, fatigue, weight loss, or night sweats. HEENT:?No headache, vision changes, hearing loss, nasal congestion, sore throat. Neurological:?No dizziness, syncope, seizures, numbness, tingling, weakness, tremors, memory loss. Psychiatric:?No anxiety, depression, mood swings, sleep disturbance, or hallucinations. Endocrine:?No heat/cold intolerance, polydipsia, polyuria, or hair/skin changes. Hematologic/Lymphatic:?No easy bruising, bleeding, or lymphadenopathy. Integumentary (Skin):?No rash, lesions, itching, or color changes. ? Physical Exam Neuro Other: Mental Status: Alert and oriented to person, place, and time. Normal attention. Normal spontaneous speech, fluency, and comprehension. No obvious issues with mood and memory. Affect is appropriate. Cranial Nerves: CN II: Visual mcdonald full to confrontation, visual acuity intact. CN III, IV, : Pupils equal, round, reactive to light and accommodation. Extraocular movements are normal. CN V: Facial sensation is normal. CN VII: Facial movements symmetrical. CN VIII: Hearing intact to bedside conversation is normal. CN IX, X: Palate elevates symmetrically. CN XI: Shoulder shrug and head turn symmetrical. CN XII: Tongue midline without atrophy or fasciculations. Extrapyramidal: Full facial expressions and blinking. No rigidity. Movements are appropriate with no tremor or abnormality. Speech: Normal; no dysarthria or tremor. Assessment & Plan Assessment & Plan (1) Multiple sclerosis: Comment: MRI brain [facility] at [facility] in Dec 2024: Mod to severe b/l, R>L hemispheric, could be demyelinating disease but they are not periventricular, no enhancement, mod severe cerebellar more than cerebral atrophy MRI C + T spine at [facility] in March 2025: No cord lesion, no sig pathology Code(s): G35 - Multiple sclerosis Category: Medical (2) Migraine without aura, not intractable, without status migrainosus: Code(s): G43.009 - Migraine without aura, not intractable, without status migrainosus Category: Medical Plan Impression: Probably chronic MS Rec: a. LP to check for oligoclonal bands b. Lyme test and ESR Orders: Orders CSF Cell Count w Diff Today G35 - Multiple sclerosis CSF Total Protein Today G35 - Multiple sclerosis IgG Index CSF Today G35 - Multiple sclerosis Immunofixation, CSF Today G35 - Multiple sclerosis FL guided lumbar puncture LP Today G35 - Multiple sclerosis CSF Glucose Today G35 - Multiple sclerosis Lyme IgG/IgM w/reflex to WB Today G35 - Multiple sclerosis Erythrocyte Sedimentation Rate Today G35 - Multiple sclerosis Coding Level of Care Code Tele Est Pt Level 5 ([id number]) Diagnoses Multiple sclerosis G35 Migraine without aura, not intractable, without status migrainosus G43.009
--- OUTSIDE RECORDS SUMMARY | 2025-05-13 15:58 | XMS_ITS | Clinical Summary ---
Author Organization 175 [facility] Address [address] [place] [address] Phone Care Team Providers Care Court Operations Clerk Name Role Phone Brett Fleming MD Primary Care Provider [phone] Allergies Active Allergy Reactions Criticality Noted Date Comments Codeine 10/30/2024 Guaifenesin 04/21/2006 guiatuss AC caused sever skin sensations / Penicillins 01/03/2006 Sulfa (Sulfonamide Antibiotics) 01/03/2006 Medications buPROPion SR (WELLBUTRIN SR) 200 mg 12 hr tablet Take 1 Tablet by mouth 2 times daily. Active busPIRone (BUSPAR) 15 mg tablet Take 1 Tablet by mouth 3 times daily. Active diphenoxylate-atrop ine (LOMOTIL) 2.5-0.025 mg per tablet Take 1 Tablet by mouth 4 times daily as needed. Active DULoxetine (Drizalma Sprinkle) 60 mg capsule, delayed rel sprinkle Take by mouth. Active ibandronate (BONIVA) 150 mg tablet Take 1 Tablet by mouth every 30 days. 4 09/07/20 25 Active rimegepant (Nurtec) 75 mg dispersible tablet Take by mouth. Active dicyclomine (BENTYL) 20 mg tablet Take 1 tablet (20 mg total) by mouth 4 (four) times a day. 120 each 11 5 10/30/19 26 Active cholestyramine (QUESTRAN) 4 gram powder Take 1 packet (4 g total) by mouth 3 (three) times a day with meals. Dissolve in 8 oz of liquid and drink before a meal 90 packet 11 5 10/30/19 26 Active ondansetron ODT (ZOFRAN-ODT) 4 mg disintegrating tablet DISSOLVE 1 TABLET ON THE TONGUE EVERY 8 HOURS NEEDED FOR NAUSEA 90 tablet 1 5 Active cloNIDine (CATAPRES) 0.1 mg tablet TAKE 1 TABLET BY MOUTH EVERY NIGHT AT BEDTIME NEEDED TO PREVENT NIGHT SWEATS DURING SLEEP 5 Active busPIRone (BUSPAR) 5 mg tablet Take 1 tablet (5 mg total) by mouth. 5 Active amphetamine-dextroa mphetamine (ADDERALL) 5 mg tablet Take 1 tablet (5 mg total) by mouth 2 (two) times a day. Max Daily Amount: 10 mg 5 Active clonazePAM (KlonoPIN) 1 mg tablet Take 1 tablet (1 mg total) by mouth 1 (one) time each day if needed. for anxiety Max Daily Amount: 1 mg 5 Active propranoloL (INDERAL) 10 mg tablet Take 1 tablet (10 mg total) by mouth 2 (two) times a day. Active cholecalciferol (Vitamin D3) 50 mcg (2,000 unit) tablet Take 1 tablet (2,000 Units total) by mouth 1 (one) time each day. 90 tablet 3 5 02/26/20 26 Active famotidine (PEPCID) 40 mg tablet Take 1 tablet (40 mg total) by mouth 2 (two) times a day. 180 each 1 5 09/18/20 25 Active Active Problems Problem Noted Date Diagnosed Date Pain in joint, multiple sites 07/18/2006 Disturbance of skin sensation 07/18/2006 Overview (08/31/2024): diffuse pain Irritable bowel syndrome 07/18/2006 Tobacco use disorder 07/18/2006 Anxiety state 03/03/2006 Overview (08/31/2024): Panic attacks--psychiatry Esophageal reflux 03/03/2006 Lumbago 03/03/2006 Overview (08/31/2024): chronic: PT Shots tried Encounters Date Type Department Care Team Description 03/13/2025 3:00 PM EDT Consult Orthopedic Surgery - [place] 175 [facility] [address] [place] [phone] Asher Vicente MD Bilateral carpal tunnel syndrome; Localized osteoarthritis of hand, unspecified laterality 03/11/2025 4:21 PM EDT - 03/11/2025 11:59 PM EDT Hospital Encounter [facility] [address] [place] [phone] Encounter for annual physical exam; Encounter for screening mammogram for malignant neoplasm of breast Discharge Disposition: Home or Self Care 02/20/2025 Telephone Internal Medicine [facility] 175 [facility] [address] [place] [phone] Emilia Tyler [place] faxed form (Vcare) 02/20/2025 Telephone Internal Medicine [facility] 175 [facility] [address] [place] [phone] Brett Fleming MD Fleming - Lab order 02/12/2025 4:00 PM EDT Office Visit Internal Medicine [facility] 175 [facility] [address] [place] [phone] Brett Fleming MD Encounter for annual physical [...] neoplasm of breast; Chronic midline thoracic back pain; Abnormal thyroid blood test from Last 3 Months Immunizations Name Administration [...] for your loved ones. For example, child care worker or elderly care for an older adult? [...] degree (e.g., BA, AB, BS) 02/12/2025 Comments No Sex and Gender Information Value Date Recorded Sex Assigned at Female 02/14/2025 12:38 PM EDT Legal Sex Female 7:44 PM EST Gender Identity Female 02/14/2025 12:38 PM EDT Sexual Orientation Straight 02/28/2025 12 :57 PM EDT Obstetrics History Para Term AB IAB SAB Ectopic Multiple Livin g Live Births 2 Last Filed Vital Signs Vital Sign Reading Time Taken Comments Blood Pressure 118/80 02/12/2025 3:53 PM EDT Pulse 80 02/12/2025 3:53 PM EDT Temperature - - Respiratory Rate - - Oxygen Saturation 98% 02/12/2025 3:53 PM EDT Inhaled Oxygen Concentration - - Weight 68 kg (150 lb) 03/13/2025 3:16 PM EDT Height 154.9 cm (5' 1 ) 03/13/2025 3:16 PM EDT Body Mass Index 28.34 03/13/2025 3:16 PM EDT Plan of Treatment Upcoming Encounters Date Type Department Care Team (Late st Contact Info) Description 06/12/2025 2:15 PM EDT Office Visit Orthopedic Surgery - [place] 175 [facility] [address] [place] [phone] Asher Vicente MD 175 [facility] [address] [place] [address] 08/14/2025 3:00 PM EDT Office Visit Internal Medicine - [place] 175 [facility] [address] [place] [phone] Brett Fleming MD 175 [facility] [address] [place] [address] Health Maintenance Due Date Last Done Comments Hepatitis B Vaccines (1 of 3 - 19+ 3-dose series) 1990 Cervical Cancer Screening: P ap Smear 1992 Pneumococcal Vaccine: 50+ Years (1 of 1 - PCV) 2021 Zoster Vaccines (1 of 2) 2021 COVID-19 Vaccine (1 - 2023-2 5 season) 2024 Colorectal Cancer Screening: Colonoscopy 08/20/2024 HIV Screening 08/20/2024 Medicare Annual Wellness Visit 08/20/2024 Osteoporosis Screening (Bone Density Screening) 08/20/2024 Influenza Vaccine (#1) 2025 Social Influencers of Health Screening 02/11/2026 02/11/2025 Breast Cancer Screening 03/11/2027 03/11/2025 Cholesterol Screening (Lipid Panel) 02/22/2030 02/22/2025, 10/11/2024, 12/03/2002 DTaP,Tdap,and Td Vaccines (3 - Td or Tdap) 02/12/2035 02/12/2025, 12/03/2002 Hepatitis C Screening Completed 10/11/2024 Depression Screening Completed 02/11/2025 HIB Vaccines Aged Out No longer eligi [...] Procedure Name Priority Date/Time Associated Diagnosis Comments CO INJECTION CARPAL TUNNEL THERAPEUTIC Routine 03/13/2025 3:00 PM EDT Bilateral carpal tunnel syndrome MG MAMMO DIGITAL SCREENING W DYLON BILAT Routine 03/11/2025 4:40 PM EDT Encounter for annual physical exam Encounter for screening mammogram for malignant neoplasm of breast TRIIODOTHYRONINE FREE Routine 02/22/2025 12:33 PM EDT [...] 12:33 PM EDT Adult general medical examination HEPATITIS C ANTIBODY Routine 10/11/2024 2:01 PM EST Routine general medical examination at a health care facility Anxiety attack Irritable bowel syndrome with diarrhea from Last 3 Months or Most Recently Relevant to Health Maintenance Results * CO INJECTION CARPAL TUNNEL THERAPEUTIC (03/13/2025 3:00 PM EDT) Asher Mar MD - 03/13/2025 3:00 PM EDT Asher Vicente MD 03/13/2025 3:54 PM Hand / UE Inj/Asp: bilateral carpal tunnel for carpal tunnel syndrome Indications: diagnostic and therapeutic Details: 27 G needle, volar approach Medications (Right): 40 mg triamcinolone acetonide 40 mg/mL Medications (Left): 40 mg triamcinolone acetonide 40 mg/mL Outcome: tolerated well, no immediate complications Site was prepped in standard fashion using alcohol swab, sterile technique was used to perform the injection, the patient tolerated the procedure well and a band-aid dressing was applied Informed Consent: Site: Carpal tunnel Laterality: Bilateral Relevant images/test results available and reviewed: yes Health status cleared: N/A Procedure/treatment, purpose, treatment alternatives, risks/potential complications and benefits explained: yes Risk/complications/benefits details: Risk/complications/benefits details: Risks and benefits of corticosteroid injection were discussed, including risk of pain, bleeding, infection, tissue attenuation, tendon rupture, changes in skin color, and injury to surrounding structures such as arteries, veins and nerves. We also discussed the patient may develop worsening pain for a few days before having improvement in their symptoms. Patient questions answered: yes Patient agrees, verbalizes understanding, and wants to proceed: yes Consent given by: Patient Informed consent discussion completed by Physician/LATASHA with patient: Verbal Pre-procedure timeout performed: yes us Asher Vicente MD IN CLINIC/BEDSIDE ORDERABLES Fin al Result * MG Mammo Digital Screening w Dylon bilat (03/11/2025 4:40 PM EDT) Anatomical Region Laterality Modality Breast Bilateral Mammography 04/16/2025 4:51 PM EDT Impressions 04/16/2025 4:52 PM EDT No evidence of breast malignancy. BI-RADS CATEGORY: 1 - NEGATIVE RECOMMENDATION: Screening bilateral mammogram is recommended in 1 year. Mammo Location: [facility], [address] [place] [address], [id number], . -------- FINAL REPORT -------- Dictated By: Beth Lynch Dictated Date: 04/16/2025 16:51 ET Assigned Physician: Beth Lynch Reviewed and Electronically Signed By: Beth Lynch Signed Date: 04/16/2025 16:52 ET Workstation ID: [id number] Transcribed By: Self Edit Transcribed Date: 04/16/2025 16:51 ET Narrative 04/16/2025 4:52 PM EDT CLINICAL: 54 years old, Female, routine annual exam. COMPARISON: Prior studies are not available. TECHNIQUE: Bilateral MLO and CC views were obtained digitally with 3-D mammogram (digital breast tomosynthesis). Computer-aided detection was utilized in evaluation of this exam (CAD). FINDINGS: There is no evidence of suspicious mass or architectural distortion. No worrisome calcifications are evident. BREAST DENSITY: A - The breasts are almost entirely fatty. Procedure Note Beth Lynch MD - 04/16/2025 CLINICAL: 54 years old, Female, routine annual exam. COMPARISON: Prior studies are not available. TECHNIQUE: Bilateral MLO and CC views were obtained digitally with 3-Dmammogram (digital breast tomosynthesis). Computer-aided detection wasutilized in evaluation of this exam (CAD). FINDINGS: There is no evidence of suspicious mass or architectural distortion. Noworrisome calcifications are evident. BREAST DENSITY: A - The breasts are almost entirely fatty. IMPRESSION: No evidence of breast malignancy. BI-RADS CATEGORY: 1 - NEGATIVE RECOMMENDATION: Screening bilateral mammogram is recommended in 1 year. Mammo Location: [facility], [address] [place] [address], [id number], . -------- FINAL REPORT -------- Dictated By: Beth Lynch Dictated Date: 04/16/2025 16:51 ET Assigned Physician: Beth Lynch Reviewed and Electronically Signed By: Beth Lynch Signed Date: 04/16/2025 16:52 ET Workstation ID: [id number] Transcribed By: Self Edit Transcribed Date: 04/16/2025 16:51 ET Brett Fleming MD IMG BI PROCEDURES Final Result * Interferon gamma interpretation (02/22/2025 12:33 PM EDT) Quantiferon Plus Interpretation Negative Negative LAB CHEMISTRY METHOD 02/23/2025 10:00 AM EDT [facility] Blood Venous blood specimen / Unknown Venipuncture / Unknown 02/22/2025 12:33 PM EDT 02/22/2025 12:33 PM EDT Brett Fleming MD LAB BLOOD ORDERABLES Final Resul t Performing Organization Address City/[facility]/ZIP Co de Phone Number [facility] [address] [place] [address], [place] [phone] * Interferon gamma antigen 2 (02/22/2025 12:33 PM EDT) Blood Venous blood specimen / Unknown Venipuncture / Unknown 02/22/2025 12:33 PM EDT 02/22/2025 12:33 PM EDT Brett Fleming MD LAB BLOOD ORDERABLES Final Resul t Performing Organization Address City/[facility]/ZIP Co de Phone Number [facility] [address] [place] [address], [place] [phone] * Inteferon gamma antigen 1 (02/22/2025 12:33 PM EDT) Blood Venous blood specimen / Unknown Venipuncture / Unknown 02/22/2025 12:33 PM EDT 02/22/2025 12:33 PM EDT us Brett Fleming MD LAB BLOOD ORDERABLES Final Resul t Performing Organization Address [facility]/ZIP Co de Phone Number [facility] [address] [place] [address], [place] [phone] * Interferon gamma mitogen (02/22/2025 12:33 PM EDT) Blood Venous blood specimen / Unknown Venipuncture / Unknown 02/22/2025 12:33 PM EDT 02/22/2025 12:33 PM EDT us Brett Fleming MD LAB BLOOD ORDERABLES Final Resul t Performing Organization Address [facility] Co de Phone Number [facility] [address] [place] [address], [place] [phone] * Interferon gamma NIL (02/22/2025 12:33 PM EDT) Blood Venous blood specimen / Unknown Venipuncture / Unknown 02/22/2025 12:33 PM EDT 02/22/2025 12:33 PM EDT us Brett Fleming MD LAB BLOOD ORDERABLES Final Resul t Performing Organization Address [facility] de Phone Number [facility] [address] [place] [address], [place] [phone] * (ABNORMAL) Thyroid stimulating hormone with reflex to free t4 and free t3 (02/22/2025 12:33 PM EDT) TSH 0.13(L) 0.40 - 4.00 mcIU/mL LAB CHEMISTRY METHOD 02/22/2025 7:03 PM EDT [facility] Blood Venous blood specimen / Unknown Venipuncture / Unknown 02/22/2025 12:33 PM EDT 02/22/2025 12:33 PM EDT us Brett Fleming MD LAB BLOOD ORDERABLES Final Resul t Performing Organization Address City/[facility]/ZIP Co de Phone Number [facility] [address] [place] [address], [place] [phone] * Free thyroxine with reflex to free triiodothyronine (02/22/2025 12:33 PM EDT) Free T4 1.14 0.70 - 1.80 ng/dL LAB CHEMISTRY METHOD 02/22/2025 8:10 PM EDT [facility] Blood Venous blood specimen / Unknown Venipuncture / Unknown 02/22/2025 12:33 PM EDT 02/22/2025 12:33 PM EDT Brett Fleming MD LAB BLOOD ORDERABLES Final Resul t Performing Organization Address [facility]/ZIP Co de Phone Number [facility] [address] [place] [address], [place] [phone] * Lipid panel with reflex to direct LDL (02/22/2025 12:33 PM EDT) Cholesterol 170 0 - 200 mg/dL LAB CHEMISTRY METHOD 02/22/2025 6:15 PM EDT [facility] Triglycerides 90 0 - 150 mg/dL LAB CHEMISTRY METHOD 02/22/2025 6:15 PM EDT [facility] HDL 63 >=40 mg/dL LAB CHEMISTRY METHOD 02/22/2025 6:15 PM EDT [facility] LDL Calculated 89 0 - 100 mg/dL LAB CHEMISTRY METHOD 02/22/2025 6:15 PM EDT [facility] VLDL Cholesterol [place] 18 mg/dL LAB CHEMISTRY METHOD 02/22/2025 6:15 PM EDT [facility] Non HDL Chol. (LDL+VLDL) 107 <145 mg/dL LAB CHEMISTRY METHOD 02/22/2025 6:15 PM EDT [facility] Chol/HDL Ratio 2.7 0.0 - 4.4 LAB CHEMISTRY METHOD 02/22/2025 6:15 PM EDT [facility] Blood Venous blood specimen / Unknown Venipuncture / Unknown 02/22/2025 12:33 PM EDT 02/22/2025 12:33 PM EDT us Brett Fleming MD LAB BLOOD ORDERABLES Final Resul t [facility] [address] [place] [address], [place] [phone] * (ABNORMAL) CBC auto differential (02/22/2025 12:33 PM EDT) WBC 6.3 4.8 - 10.8 K/mcL LAB HEMETOLOGY METHOD 02/22/2025 2:25 PM EDT [facility] RBC 3.90 3.80 - 4.80 M/mcL LAB HEMETOLOGY METHOD 02/22/2025 2:25 PM EDT [facility] Hemoglobin 12.2 11.5 - 16.0 g/dL LAB HEMETOLOGY METHOD 02/22/2025 2:25 PM EDT [facility] Hematocrit 36.7 35.0 - 47.0 % LAB HEMETOLOGY METHOD 02/22/2025 2:25 PM EDT [facility] MCV 94.1 79.0 - 98.0 FL LAB HEMETOLOGY METHOD 02/22/2025 2:25 PM EDT [facility] MCH 31.3 27.0 - 32.0 pcg LAB HEMETOLOGY METHOD 02/22/2025 2:25 PM EDT [facility] MCHC 33.2 32.0 - 37.0 g/dL LAB HEMETOLOGY METHOD 02/22/2025 2:25 PM EDT [facility] RDW 12.0 11.0 - 15.0 % LAB HEMETOLOGY METHOD 02/22/2025 2:25 PM EDT [facility] Platelets 366 130 - 400 K/mcL LAB HEMETOLOGY METHOD 02/22/2025 2:25 PM EDT [facility] MPV 10.7 7.0 - 11.0 FL LAB HEMETOLOGY METHOD 02/22/2025 2:25 PM EDT [facility] NRBC 0.0 <1.0 % LAB HEMETOLOGY METHOD 02/22/2025 2:25 PM EDT [facility] NRBC Absolute 0.00 <0.10 K/mcL LAB HEMETOLOGY METHOD 02/22/2025 2:25 PM EDT [facility] Neutrophils Relative 73.7 % LAB HEMETOLOGY METHOD 02/22/2025 2:25 PM [facility] Lymphocytes Relative 15.7 % LAB HEMETOLOGY METHOD 02/22/2025 2:25 PM EDT [facility] Monocytes Relative 8.3 % LAB HEMETOLOGY METHOD 02/22/2025 2:25 PM EDT [facility] Eosinophils Relative 0.3 % LAB HEMETOLOGY METHOD 02/22/2025 2:25 PM [facility] Basophils Relative 1.4 % LAB HEMETOLOGY METHOD 02/22/2025 2:25 PM EDT [facility] Immature Granulocytes Relative 0.6 % LAB HEMETOLOGY METHOD 02/22/2025 2:25 PM EDT [facility] Neutrophils Absolute 4.61 1.50 - 7.00 K/mcL LAB HEMETOLOGY METHOD 02/22/2025 2:25 PM EDT [facility] Lymphocytes Absolute 0.98(L) 1.00 - 5.00 K/mcL LAB HEMETOLOGY METHOD 02/22/2025 2:25 PM EDT [facility] Monocytes Absolute 0.52 0.20 - 1.00 K/mcL LAB HEMETOLOGY METHOD 02/22/2025 2:25 PM EDT [facility] Eosinophils Absolute 0.02 0.00 - 0.50 K/[facility] LAB HEMETOLOGY METHOD 02/22/2025 2:25 PM EDT [facility] Basophils Absolute 0.09 0.00 - 0.20 K/[facility] LAB HEMETOLOGY METHOD 02/22/2025 2:25 PM EDT [facility] Immature Granulocytes Absolute 0.04(H) 0.00 - 0.03 K/[facility] LAB HEMETOLOGY METHOD 02/22/2025 2:25 PM EDT [facility] Blood Venous blood specimen / Unknown Venipuncture / Unknown 02/22/2025 12:33 PM EDT 02/22/2025 12:33 PM EDT Robin OROPEZA LAB BLOOD ORDERABLES Final Resu lt Performing Organization Address City/[facility]/ZIP Co de Phone Number [facility] [address] [place] [address], [place] [phone] * (ABNORMAL) Vitamin D 25 hydroxy (02/22/2025 12:33 PM EDT) Vit D, 25-Hydroxy 16.0(L) 30.0 - 80.0 ng/mL LAB CHEMISTRY METHOD 02/22/2025 7:03 PM EDT [facility] Blood Venous blood specimen / Unknown Venipuncture / Unknown 02/22/2025 12:33 PM EDT 02/22/2025 12:33 PM EDT Brett Fleming MD LAB BLOOD ORDERABLES Final Resul t [facility] [address] [place] [address], [place] [phone] * Triiodothyronine free (02/22/2025 12:33 PM EDT) T3, Free 347 230 - 420 pcg/dL LAB CHEMISTRY METHOD 02/22/2025 8:52 PM EDT [facility] Blood Venous blood specimen / Unknown Venipuncture / Unknown 02/22/2025 12:33 PM EDT 02/22/2025 12:33 PM EDT Brett Fleming MD LAB BLOOD ORDERABLES Final Resul t Performing Organization Address City/[facility]/ZIP Co de Phone Number [facility] [address] [place] [address], [place] [phone] * Lipase (02/22/2025 12:33 PM EDT) Pathologist [facility] Lipase 36 13 - 75 unit/L LAB CHEMISTRY METHOD 02/22/2025 6:15 PM EDT [facility] Blood Venous blood specimen / Unknown Venipuncture / Unknown 02/22/2025 12:33 PM EDT 02/22/2025 12:33 PM EDT us Robin OROPEZA LAB BLOOD ORDERABLES Final Resu lt Performing Organization Address [facility] Co de Phone Number [facility] [address] [place] [address], [place] [phone] * Lactate dehydrogenase (02/22/2025 12:33 PM EDT) Pathologist [facility] LDH 171 120 - 246 unit/L LAB CHEMISTRY METHOD 02/22/2025 6:15 PM EDT [facility] Blood Venous blood specimen / Unknown Venipuncture / Unknown 02/22/2025 12:33 PM EDT 02/22/2025 12:33 PM EDT us Robin OROPEZA LAB BLOOD ORDERABLES Final Resu lt [facility] [address] [place] [address], [place] [phone] * Iron (02/22/2025 12:33 PM EDT) Iron 42 40 - 150 mcg/dL LAB CHEMISTRY METHOD 02/22/2025 6:15 PM EDT [facility] Blood Venous blood specimen / Unknown Venipuncture / Unknown 02/22/2025 12:33 PM EDT 02/22/2025 12:33 PM EDT Robin OROPEZA LAB BLOOD ORDERABLES Final Resu lt [facility] [address] [place] [address], * Hemoglobin A1c (02/22/2025 12:33 PM EDT) [facility] Hemoglobin A1C 4.8 <6.5 % LAB CHEMISTRY METHOD 02/22/2025 10:18 PM EDT [facility] Mean Bld Glu Estim. 91 mg/dL LAB CHEMISTRY METHOD 02/22/2025 10:18 PM EDT [facility] Blood Venous blood specimen / Unknown Venipuncture / Unknown 02/22/2025 12:33 PM EDT 02/22/2025 12:33 PM EDT Brett Fleming MD LAB BLOOD ORDERABLES Final Resul t [facility] [address] [place] [address], [place] [phone] * Ferritin (02/22/2025 12:33 PM EDT) Ferritin 19 8 - 252 ng/mL LAB CHEMISTRY METHOD 02/22/2025 6:38 PM EDT [facility] Blood Venous blood specimen / Unknown Venipuncture / Unknown 02/22/2025 12:33 PM EDT 02/22/2025 12:33 PM EDT Robin OROPEZA LAB BLOOD ORDERABLES Final Resu lt Performing Organization Address [facility]/ZIP Co de Phone Number [facility] [address] [place] [address], [place] [phone] * Vitamin B12 (02/22/2025 12:33 PM EDT) Pathologist [facility] Vitamin B-12 648 250 - 900 pcg/mL LAB CHEMISTRY METHOD 02/22/2025 6:38 PM EDT [facility] Blood Venous blood specimen / Unknown Venipuncture / Unknown 02/22/2025 12:33 PM EDT 02/22/2025 12:33 PM EDT Brett Fleming MD LAB BLOOD ORDERABLES Final Resul t Performing Organization Address [facility]/ZIP Co de Phone Number [facility] [address] [place] [address], [place] [phone] * Amylase (02/22/2025 12:33 PM EDT) [facility] Amylase 68 25 - 115 unit/L LAB CHEMISTRY METHOD 02/22/2025 6:15 PM EDT [facility] Blood Venous blood specimen / Unknown Venipuncture / Unknown 02/22/2025 12:33 PM EDT 02/22/2025 12:33 PM EDT us Robin OROPEZA LAB BLOOD ORDERABLES Final Resu lt Performing Organization Address [facility]/ZIP Co de Phone Number [facility] [address] [place] [address], [place] [phone] * Comprehensive metabolic panel (02/22/2025 12:33 PM EDT) [facility] Sodium 141 133 - 145 mmol/L LAB CHEMISTRY METHOD 02/22/2025 6:38 PM [facility] Potassium 4.7 3.5 - 5.5 mmol/L LAB CHEMISTRY METHOD 02/22/2025 6:38 PM [facility] Chloride 109 96 - 110 mmol/L LAB CHEMISTRY METHOD 02/22/2025 6:38 PM [facility] CO2 27 21 - 32 mmol/L LAB CHEMISTRY METHOD 02/22/2025 6:38 PM [facility] Anion Gap 5 3 - 11 LAB CHEMISTRY METHOD 02/22/2025 6:38 PM [facility] Glucose 89 70 - 100 mg/dL LAB CHEMISTRY METHOD 02/22/2025 6:38 PM [facility] BUN 17 5 - 25 mg/dL LAB CHEMISTRY METHOD 02/22/2025 6:38 PM [facility] Creatinine 1.00 0.50 - 1.10 mg/dL LAB CHEMISTRY METHOD 02/22/2025 6:38 PM [facility] eGFR 68 >=60 mL/min/1. 73m2 LAB CHEMISTRY METHOD 02/22/2025 6:38 PM [facility] Comment:Calculation based on the Chronic Kidney Disease Epidemiology Collaboration (CKD-EPI) equation refit without adjustment for race. BUN/Creatinine Ratio 17.0 LAB CHEMISTRY METHOD 02/22/2025 6:38 PM [facility] Calcium 9.1 8.5 - 10.5 mg/dL LAB CHEMISTRY METHOD 02/22/2025 6:38 PM [facility] AST (SGOT) 14 10 - 42 unit/L LAB CHEMISTRY METHOD 02/22/2025 6:38 PM [facility] ALT (SGPT) 23 10 - 60 unit/L LAB CHEMISTRY METHOD 02/22/2025 6:38 PM [facility] Alkaline Phosphatase 105 42 - 121 unit/L LAB CHEMISTRY METHOD 02/22/2025 6:38 PM EDT [facility] Total Protein 6.7 6.0 - 8.0 g/dL LAB CHEMISTRY METHOD 02/22/2025 6:38 PM EDT [facility] Albumin 3.3 3.2 - 5.0 g/dL LAB CHEMISTRY METHOD 02/22/2025 6:38 PM EDT [facility] Total Bilirubin 0.4 0.0 - 1.4 mg/dL LAB CHEMISTRY METHOD 02/22/2025 6:38 PM EDT [facility] Blood Venous blood specimen / Unknown Venipuncture / Unknown 02/22/2025 12:33 PM EDT 02/22/2025 12:33 PM EDT us Robin OROPEZA LAB BLOOD ORDERABLES Final Resu lt Performing Organization Address City/[facility]/ZIP Co de Phone Number [facility] [address] [place] [address], [place] [phone] * Hepatitis C antibody (10/11/2024 2:01 PM EST) Hepatitis C Antibody Negative Negative LAB CHEMISTRY METHOD 10/11/2024 7:15 PM EST [facility] Blood Venous blood specimen / Unknown Venipuncture / Unknown 10/11/2024 2:01 PM EST 10/11/2024 2:01 PM EST us Brett Fleming MD LAB BLOOD ORDERABLES Final Resul t [facility] [address] [place] [address], [place] [phone] from Last 3 Months or Most Recently Relevant to Health Maintenance Insurance MEDICARE MEDICAID - [place] Care Teams Court Operations Clerk Relationship Specialty Start Date End Date Brett Fleming MD [address] [place] [phone] PCP - General Internal Medicine 08/20/24
--- OUTSIDE RECORDS SUMMARY | 2025-05-13 15:58 | XMS_ITS | Encounter Summary ---
Author Organization [facility] Address [address] [place] [address] Phone Care Team Providers Care Warehouse Incentive Selector Name Role Phone Pcp, Not Required Primary Care Provider Unavaila ble Pcp, Unknown Unavailable Unavailable Encounter Details Date Type Department Care Team (Late st Contact Info) Description 02/12/2024 Procedure Pass [facility] [place] [facility], [address] [place] [address] Social History Tobacco Use Types Packs/Day Years Used Date Smoking Tobacco: Never Assessed Education Answer Date Recorded Are you interested in more education? Not on jacque e 02/12/2024 Are you concerned about learning? Not on file 02/12/2024 No 02/12/2024 No 02/12/2024 Digital Access Answer Date Recorded No 02/12/2024 No 02/12/2024 Reliable internet access at home? Not on file 02/12/2024 Device with a working camera? Not on file Intimate Partner Violence Answer Date R ecorded Are you denied basic needs s uch as food, clothing, or medical care? Deferred 02/12/2024 In the past 12 months have y ou been in a relationship with a person who hurts, threatens, or tries to control you? Deferred 02/12/2024 Are you denied basic needs s uch as food, clothing, or medical care? Deferred 02/12/2024 In the past 12 months have y ou been in a relationship with a person who hurts, threatens, or tries to control you? Deferred 02/12/2024 Comments Unknown Sex and Gender Information Value Date Recorded Sex Assigned at Female 02/13/2024 11:36 AM EDT Legal Sex Female 7:09 PM EDT Gender Identity Female 02/13/2024 11:36 AM EDT Sexual Orientation Straight 02/13/2024 11 :36 AM EDT documented as of this encounter Functional Status * Calculated C-SSRS Risk Score (Lifetime/Recent) Answer Date of Assessment Author No Risk Indicated 02/12/2024 7:20 PM EDT Lizett Loyola RN * [place] Suicide Severity Rating Scale (Screener/Recent Self-Report) Question Answer Date of Assessment Author 1. Wish to be (Past 1 Month) No 02/12/2024 7:20 PM EDT Lizett Loyola RN 2. Non-Specific Active Suicidal Thoughts (Past 1 Month) No 02/12/2024 7:20 PM EDT Lizett Loyola RN 6. Suicidal Behavior (Lifetime) No 02/12/2024 7:20 PM EDT Lizett Loyola RN documented as of this encounter Plan of Treatment Not on file documented as of this encounter Visit Diagnoses Not on filedocumented in this encounter Care Teams Warehouse Incentive Selector Relationship Specialty Start Date End Date Pcp, Not Required [address] [place] [address] PCP - General 02/12/24 Pcp, Unknown 02/12/24 documented as of this encounter Additional Source Comments The information contained in this document represents components of the legal health record. It is not the complete legal health record.[facility]
--- OUTSIDE RECORDS SUMMARY | 2025-05-13 15:58 | XMS_ITS | Patient Health Record ---
Author Organization [facility] Billing Info Address [address] [place] [address] [place] [address] Care Team Providers Care Horticulture/Floriculture Teacher Name Role Phone DEBBIE RIVERA Unavailable [phone] Allergies Allergen (clinical drug ingredient) Drug/Non Drug [...] Problem Status W/U Status Risk Notes Problem [id number] Closed nondisplaced fracture of neck of right radius, initial encounter (S52.134A) Active confirmed Plan Of Treatment No Information Insurance Providers Payer Name Payer Address Payer Phone Subscriber Number Group Number Insured Name Patient Relationship to Insured Coverage Start Date Coverage End Date [employer] [address] [place], [place] [id number] Becca Sabillon Self - patient is the insured 9 9 Medical (General) History Medical History History ICD Code Depression Anxiety disorder anema Surgical History Surgery Date(Month/Year) gall bladder surgery Endometrial Ablation Hospitalization History Reason Date(Month/Year) see surgical hx
== END 2025-05-13 15:51 | disposition home or self-care (01) ==
LOC: HO.HSM 15:25
PROVIDERS: PCP Student in an Organized Health Care Education/Training Program; Visit Provider Psychiatry & Neurology Neurology
DX: G35 Multiple sclerosis (principal); G43.009 Migraine without aura, not intractable, without status migrainosus
CPT/HCPCS: 99214

== ENCOUNTER → 2025-05-13 15:25 | Outpatient (BNVA) | payer MEDICARE, MEDICAID, SELFPAY | PROVIDERS: PCP Student in an Organized Health Care Education/Training Program; Visit Provider Psychiatry & Neurology Neurology | DX: G35 Multiple sclerosis (principal); G43.009 Migraine without aura, not intractable, without status migrainosus | CPT/HCPCS: 99212 ==

== ENCOUNTER 2025-06-05 09:17 | Day surgery (SDC) | payer MEDICARE, MEDICAID, SELFPAY ==
--- OUTSIDE RECORDS SUMMARY | 2025-05-14 15:54 | XMS_ITS | Encounter Summary ---
Author Organization [facility] Address [address] [place] [address] Phone Care Team Providers Care Sewer Cleaner Name Role Phone Pcp, Not Required Primary Care Provider Unavaila ble Pcp, Unknown Unavailable Unavailable Encounter Details Date Type Department Care Team (Late st Contact Info) Description 02/12/2024 Procedure Pass [facility] [place] [facility], [address] [place] [address] Social History Tobacco Use Types Packs/Day Years [...] 7:20 PM EDT Lizett Loyola RN * [place] Suicide Severity Rating Scale (Screener/Recent Self-Report) Question [...] on filedocumented in this encounter Care Teams Sewer Cleaner Relationship Specialty Start Date End Date Pcp, Not Required [address] [place] [address] PCP - General 02/12/24 Pcp, Unknown 02/12/24 documented as of this encounter Additional Source Comments The information contained in this document represents components of the legal health record. It is not the complete legal health record.[facility]
--- OUTSIDE RECORDS SUMMARY | 2025-05-14 15:55 | XMS_ITS | Clinical Summary ---
Author Organization 175 [facility] Address [address] [place] [address] Phone Care Team Providers Care Canal Boat Operator Name Role Phone Brett Fleming MD Primary Care Provider [phone] Allergies Active Allergy Reactions Criticality Noted Date [...] 3:00 PM EDT Consult Orthopedic Surgery - [place] 175 [facility] [address] [place] [phone] Asher Vicente MD Bilateral carpal tunnel syndrome; Localized osteoarthritis of hand, unspecified laterality 03/11/2025 4:21 PM EDT - 03/11/2025 11:59 PM EDT Hospital Encounter [facility] [address] [place] [phone] Encounter for annual physical exam; Encounter for screening mammogram for malignant neoplasm of breast Discharge Disposition: Home or Self Care 02/20/2025 Telephone Internal Medicine [facility] 175 [facility] [address] [place] [phone] Emilia Tyler [place] faxed form (Vcare) 02/20/2025 Telephone Internal Medicine [facility] [address] [facility] [address] [place] [phone] Brett Fleming MD Fleming - Lab order 02/12/2025 4:00 PM EDT Office Visit Internal Medicine [facility] [address] [facility] [address] [place] [phone] Brett Fleming MD Encounter for annual physical [...] PM EDT Office Visit Orthopedic Surgery - [place] 175 [facility] [address] [place] [phone] Asher Vicente MD 175 [facility] [address] [place] [address] 08/14/2025 3:00 PM EDT Office Visit Internal Medicine - [place] 175 [facility] [address] [place] [phone] Brett Flemign MD 175 [facility] [address] [place] [address] Health Maintenance Due Date Last Done Comments [...] Procedure Name Priority Date/Time Associated Diagnosis Comments MI INJECTION CARPAL TUNNEL THERAPEUTIC Routine 03/13/2025 3:00 [...] Recently Relevant to Health Maintenance Results * MI INJECTION CARPAL TUNNEL THERAPEUTIC (03/13/2025 3:00 PM [...] year. Mammo Location: [facility], [address] [place] [address], [address], . -------- FINAL REPORT -------- Dictated By: Beth Lynch Dictated Date: 04/16/2025 16:51 ET Assigned Physician: Beth Lynch Reviewed and Electronically Signed By: Beth Lynch Signed Date: 04/16/2025 16:52 ET Workstation ID: [id number] Transcribed By: Self Edit Transcribed Date: 04/16/2025 [...] year. Mammo Location: [facility], [address] [place] [address], [id number], . -------- FINAL REPORT -------- Dictated By: Beth Lynch Dictated Date: 04/16/2025 16:51 ET Assigned Physician: Beth Lynch Reviewed and Electronically Signed By: Beth Lynch Signed Date: 04/16/2025 16:52 ET Workstation ID: [id number] Transcribed By: Self Edit Transcribed Date: 04/16/2025 16:51 ET Brett Fleming MD IMG BI PROCEDURES Final Result * Interferon gamma interpretation (02/22/2025 12:33 PM EDT) Quantiferon Plus Interpretation Negative Negative LAB CHEMISTRY METHOD 02/23/2025 10:00 AM EDT [facility] Blood Venous blood specimen / Unknown Venipuncture / Unknown 02/22/2025 12:33 PM EDT 02/22/2025 12:33 PM EDT Brett Fleming MD LAB BLOOD ORDERABLES Final Resul t Performing Organization Address City/[facility]/ZIP Co de Phone Number [facility] [address] [place] [address], [place] [phone] * Interferon gamma antigen 2 (02/22/2025 12:33 PM EDT) Blood Venous blood specimen / Unknown Venipuncture / Unknown 02/22/2025 12:33 PM EDT 02/22/2025 12:33 PM EDT Brett Fleming MD LAB BLOOD ORDERABLES Final Resul t Performing Organization Address City/[facility]/ZIP Co de Phone Number [facility] [address] [place] [address], [place] [phone] * Inteferon gamma antigen 1 (02/22/2025 12:33 PM EDT) Blood Venous blood specimen / Unknown Venipuncture / Unknown 02/22/2025 12:33 PM EDT 02/22/2025 12:33 PM EDT us Brett Fleming MD LAB BLOOD ORDERABLES Final Resul t Performing Organization Address [facility]/ZIP Co de Phone Number [facility] [address] [place] [address], [place] [phone] * Interferon gamma mitogen (02/22/2025 12:33 PM EDT) Blood Venous blood specimen / Unknown Venipuncture / Unknown 02/22/2025 12:33 PM EDT 02/22/2025 12:33 PM EDT us Brett Fleming MD LAB BLOOD ORDERABLES Final Resul t Performing Organization Address [facility] Co de Phone Number [facility] [address] [place] [address], [place] [phone] * Interferon gamma NIL (02/22/2025 12:33 PM EDT) Blood Venous blood specimen / Unknown Venipuncture / Unknown 02/22/2025 12:33 PM EDT 02/22/2025 12:33 PM EDT us Brett Fleming MD LAB BLOOD ORDERABLES Final Resul t Performing Organization Address [facility] de Phone Number [facility] [address] [place] [address], [place] [phone] * (ABNORMAL) Thyroid stimulating hormone with reflex to free t4 and free t3 (02/22/2025 12:33 PM EDT) TSH 0.13(L) 0.40 - 4.00 mcIU/mL LAB CHEMISTRY METHOD 02/22/2025 7:03 PM EDT [facility] Blood Venous blood specimen / Unknown Venipuncture / Unknown 02/22/2025 12:33 PM EDT 02/22/2025 12:33 PM EDT us Brett Fleming MD LAB BLOOD ORDERABLES Final Resul t Performing Organization Address City/[facility]/ZIP Co de Phone Number [facility] [address] [place] [address], [place] [phone] * Free thyroxine with reflex to free triiodothyronine (02/22/2025 12:33 PM EDT) Free T4 1.14 0.70 - 1.80 ng/dL LAB CHEMISTRY METHOD 02/22/2025 8:10 PM EDT [facility] Blood Venous blood specimen / Unknown Venipuncture / Unknown 02/22/2025 12:33 PM EDT 02/22/2025 12:33 PM EDT Brett Fleming MD LAB BLOOD ORDERABLES Final Resul t Performing Organization Address [facility]/ZIP Co de Phone Number [facility] [address] [place] [address], [place] [phone] * Lipid panel with reflex to direct LDL (02/22/2025 12:33 PM EDT) Cholesterol 170 0 - 200 mg/dL LAB CHEMISTRY METHOD 02/22/2025 6:15 PM EDT [facility] Triglycerides 90 0 - 150 mg/dL LAB CHEMISTRY METHOD 02/22/2025 6:15 PM EDT [facility] HDL 63 >=40 mg/dL LAB CHEMISTRY METHOD 02/22/2025 6:15 PM EDT [facility] LDL Calculated 89 0 - 100 mg/dL LAB CHEMISTRY METHOD 02/22/2025 6:15 PM EDT [facility] VLDL Cholesterol [place] 18 mg/dL LAB CHEMISTRY METHOD 02/22/2025 6:15 PM EDT [facility] Non HDL Chol. (LDL+VLDL) 107 <145 mg/dL LAB CHEMISTRY METHOD 02/22/2025 6:15 PM EDT [facility] Chol/HDL Ratio 2.7 0.0 - 4.4 LAB CHEMISTRY METHOD 02/22/2025 6:15 PM EDT [facility] Blood Venous blood specimen / Unknown Venipuncture / Unknown 02/22/2025 12:33 PM EDT 02/22/2025 12:33 PM EDT us Brett Fleming MD LAB BLOOD ORDERABLES Final Resul t [facility] [address] [place] [address], [place] [phone] * (ABNORMAL) CBC auto differential (02/22/2025 12:33 PM EDT) WBC 6.3 4.8 - 10.8 K/mcL LAB HEMETOLOGY METHOD 02/22/2025 2:25 PM EDT [facility] RBC 3.90 3.80 - 4.80 M/mcL LAB HEMETOLOGY METHOD 02/22/2025 2:25 PM EDT [facility] Hemoglobin 12.2 11.5 - 16.0 g/dL LAB HEMETOLOGY METHOD 02/22/2025 2:25 PM EDT [facility] Hematocrit 36.7 35.0 - 47.0 % LAB HEMETOLOGY METHOD 02/22/2025 2:25 PM EDT [facility] MCV 94.1 79.0 - 98.0 FL LAB HEMETOLOGY METHOD 02/22/2025 2:25 PM EDT [facility] MCH 31.3 27.0 - 32.0 pcg LAB HEMETOLOGY METHOD 02/22/2025 2:25 PM EDT [facility] MCHC 33.2 32.0 - 37.0 g/dL LAB HEMETOLOGY METHOD 02/22/2025 2:25 PM EDT [facility] RDW 12.0 11.0 - 15.0 % LAB HEMETOLOGY METHOD 02/22/2025 2:25 PM EDT [facility] Platelets 366 130 - 400 K/mcL LAB HEMETOLOGY METHOD 02/22/2025 2:25 PM EDT [facility] MPV 10.7 7.0 - 11.0 FL LAB HEMETOLOGY METHOD 02/22/2025 2:25 PM EDT [facility] NRBC 0.0 <1.0 % LAB HEMETOLOGY METHOD 02/22/2025 2:25 PM EDT [facility] NRBC Absolute 0.00 <0.10 K/mcL LAB HEMETOLOGY METHOD 02/22/2025 2:25 PM EDT [facility] Neutrophils Relative 73.7 % LAB HEMETOLOGY METHOD [facility]/22[facility]25 [facility] Lymphocytes Relative 15.7 % LAB HEMETOLOGY METHOD 02/22/2025 2:25 PM EDT [facility] Monocytes Relative 8.3 % LAB HEMETOLOGY METHOD 02/22/2025 2:25 PM EDT [facility] Eosinophils Relative 0.3 % LAB HEMETOLOGY METHOD 02/22/2025 2:[address] [facility] Basophils Relative 1.4 % LAB HEMETOLOGY METHOD 02/22/2025 2:25 PM EDT [facility] Immature Granulocytes Relative 0.6 % LAB HEMETOLOGY METHOD 02/22/2025 2:25 PM EDT [facility] Neutrophils Absolute 4.61 1.50 - 7.00 K/mcL LAB HEMETOLOGY METHOD 02/22/2025 2:25 PM EDT [facility] Lymphocytes Absolute 0.98(L) 1.00 - 5.00 K/mcL LAB HEMETOLOGY METHOD 02/22/2025 2:25 PM EDT [facility] Monocytes Absolute 0.52 0.20 - 1.00 K/mcL LAB HEMETOLOGY METHOD 02/22/2025 2:25 PM EDT [facility] Eosinophils Absolute 0.02 0.00 - 0.50 [facility] HEMETOLOGY METHOD 02/22/2025 2:25 PM EDT [facility] Basophils Absolute 0.09 0.00 - 0.20 [facility] HEMETOLOGY METHOD 02/22/2025 2:25 PM EDT [facility] Immature Granulocytes Absolute 0.04(H) 0.00 - 0.03 [facility] HEMETOLOGY METHOD 02/22/2025 2:25 PM EDT [facility] Blood Venous blood specimen / Unknown Venipuncture / Unknown 02/22/2025 12:33 PM EDT 02/22/2025 12:33 PM EDT Robin OROPEZA LAB BLOOD ORDERABLES Final Resu lt Performing Organization Address City/[facility]/ZIP Co de Phone Number [facility] [address] [place] [address], [place] [phone] * (ABNORMAL) Vitamin D 25 hydroxy (02/22/2025 12:33 PM EDT) Vit D, 25-Hydroxy 16.0(L) 30.0 - 80.0 ng/mL LAB CHEMISTRY METHOD 02/22/2025 7:03 PM EDT [facility] Blood Venous blood specimen / Unknown Venipuncture / Unknown 02/22/2025 12:33 PM EDT 02/22/2025 12:33 PM EDT Brett Fleming MD LAB BLOOD ORDERABLES Final Resul t [facility] [address] [place] [address], [place] [phone] * Triiodothyronine free (02/22/2025 12:33 PM EDT) T3, Free 347 230 - 420 pcg/dL LAB CHEMISTRY METHOD 02/22/2025 8:52 PM EDT [facility] Blood Venous blood specimen / Unknown Venipuncture / Unknown 02/22/2025 12:33 PM EDT 02/22/2025 12:33 PM EDT Brett Fleming MD LAB BLOOD ORDERABLES Final Resul t Performing Organization Address City/[facility]/ZIP Co de Phone Number [facility] [address] [place] [address], [place] [phone] * Lipase (02/22/2025 12:33 PM EDT) Pathologist [facility] Lipase 36 13 - 75 unit/L LAB CHEMISTRY METHOD 02/22/2025 6:15 PM EDT [facility] Blood Venous blood specimen / Unknown Venipuncture / Unknown 02/22/2025 12:33 PM EDT 02/22/2025 12:33 PM EDT us Robin OROPEZA LAB BLOOD ORDERABLES Final Resu lt Performing Organization Address [facility] Co de Phone Number [facility] [address] [place] [address], [place] [phone] * Lactate dehydrogenase (02/22/2025 12:33 PM EDT) Pathologist [facility] LDH 171 120 - 246 unit/L LAB CHEMISTRY METHOD 02/22/2025 6:15 PM EDT [facility] Blood Venous blood specimen / Unknown Venipuncture / Unknown 02/22/2025 12:33 PM EDT 02/22/2025 12:33 PM EDT us Robin OROPEZA LAB BLOOD ORDERABLES Final Resu lt [facility] [address] [place] [address], [place] [phone] * Iron (02/22/2025 12:33 PM EDT) Iron 42 40 - 150 mcg/dL LAB CHEMISTRY METHOD 02/22/2025 6:15 PM EDT [facility] Blood Venous blood specimen / Unknown Venipuncture / Unknown 02/22/2025 12:33 PM EDT 02/22/2025 12:33 PM EDT Robin OROPEZA LAB BLOOD ORDERABLES Final Resu lt [facility] [address] [place] [address], * Hemoglobin A1c (02/22/2025 12:33 PM EDT) [facility] Hemoglobin A1C 4.8 <6.5 % LAB CHEMISTRY METHOD 02/22/2025 10:18 PM EDT [facility] Mean Bld Glu Estim. 91 mg/dL LAB CHEMISTRY METHOD 02/22/2025 10:18 PM EDT [facility] Blood Venous blood specimen / Unknown Venipuncture / Unknown 02/22/2025 12:33 PM EDT 02/22/2025 12:33 PM EDT Brett Fleming MD LAB BLOOD ORDERABLES Final Resul t [facility] [address] [place] [address], [place] [phone] * Ferritin (02/22/2025 12:33 PM EDT) Ferritin 19 8 - 252 ng/mL LAB CHEMISTRY METHOD 02/22/2025 6:38 PM EDT [facility] Blood Venous blood specimen / Unknown Venipuncture / Unknown 02/22/2025 12:33 PM EDT 02/22/2025 12:33 PM EDT Robin OROPEZA LAB BLOOD ORDERABLES Final Resu lt Performing Organization Address [facility]/ZIP Co de Phone Number [facility] [address] [place] [address], [place] [phone] * Vitamin B12 (02/22/2025 12:33 PM EDT) Pathologist [facility] Vitamin B-12 648 250 - 900 pcg/mL LAB CHEMISTRY METHOD 02/22/2025 6:38 PM EDT [facility] Blood Venous blood specimen / Unknown Venipuncture / Unknown 02/22/2025 12:33 PM EDT 02/22/2025 12:33 PM EDT Brett Fleming MD LAB BLOOD ORDERABLES Final Resul t Performing Organization Address [facility]/ZIP Co de Phone Number [facility] [address] [place] [address], [place] [phone] * Amylase (02/22/2025 12:33 PM EDT) [facility] Amylase 68 25 - 115 unit/L LAB CHEMISTRY METHOD 02/22/2025 6:15 PM EDT [facility] Blood Venous blood specimen / Unknown Venipuncture / Unknown 02/22/2025 12:33 PM EDT 02/22/2025 12:33 PM EDT us Robin OROPEZA LAB BLOOD ORDERABLES Final Resu lt Performing Organization Address [facility]/ZIP Co de Phone Number [facility] [address] [place] [address], [place] [phone] * Comprehensive metabolic panel (02/22/2025 12:33 PM EDT) [facility] Sodium 141 133 - 145 mmol/L LAB CHEMISTRY METHOD 02/22/2025 6:[address] [facility] Potassium 4.7 3.5 - 5.5 mmol/L LAB CHEMISTRY METHOD 02/22/2025 6:[address] [facility] Chloride 109 96 - 110 mmol/L LAB CHEMISTRY METHOD 02/22/2025 6:[address] [facility] CO2 27 21 - 32 mmol/L LAB CHEMISTRY METHOD 02/22/2025 6:[address] [facility] Anion Gap 5 3 - 11 LAB CHEMISTRY METHOD 02/22/2025 6:[address] [facility] Glucose 89 70 - 100 mg/dL LAB CHEMISTRY METHOD 02/22/2025 6:[address] [facility] BUN 17 5 - 25 mg/dL LAB CHEMISTRY METHOD 02/22/2025 6:[address] [facility] Creatinine 1.00 0.50 - 1.10 mg/dL LAB CHEMISTRY METHOD 02/22/2025 6:[address] [facility] eGFR 68 >=60 mL/min/1. 73m2 LAB CHEMISTRY METHOD 02/22/2025 6:[address] [facility] Comment:Calculation based on the Chronic Kidney Disease Epidemiology Collaboration (CKD-EPI) equation refit without adjustment for race. BUN/Creatinine Ratio 17.0 LAB CHEMISTRY METHOD 02/22/2025 6:[address] [facility] Calcium 9.1 8.5 - 10.5 mg/dL LAB CHEMISTRY METHOD 02/22/2025 6:[address] [facility] AST (SGOT) 14 10 - 42 unit/L LAB CHEMISTRY METHOD 02/22/2025 6:[address] [facility] ALT (SGPT) 23 10 - 60 unit/L LAB CHEMISTRY METHOD 02/22/2025 6:[address] [facility] Alkaline Phosphatase 105 42 - 121 unit/L LAB CHEMISTRY METHOD 02/22/2025 6:38 PM EDT [facility] Total Protein 6.7 6.0 - 8.0 g/dL LAB CHEMISTRY METHOD 02/22/2025 6:38 PM EDT [facility] Albumin 3.3 3.2 - 5.0 g/dL LAB CHEMISTRY METHOD 02/22/2025 6:38 PM EDT [facility] Total Bilirubin 0.4 0.0 - 1.4 mg/dL LAB CHEMISTRY METHOD 02/22/2025 6:38 PM EDT [facility] Blood Venous blood specimen / Unknown Venipuncture / Unknown 02/22/2025 12:33 PM EDT 02/22/2025 12:33 PM EDT us Robin OROPEZA LAB BLOOD ORDERABLES Final Resu lt Performing Organization Address City/[facility]/ZIP Co de Phone Number [facility] [address] [place] [address], [place] [phone] * Hepatitis C antibody (10/11/2024 2:01 PM EST) Hepatitis C Antibody Negative Negative LAB CHEMISTRY METHOD 10/11/2024 7:15 PM EST [facility] Blood Venous blood specimen / Unknown Venipuncture / Unknown 10/11/2024 2:01 PM EST 10/11/2024 2:01 PM EST us Brett Fleming MD LAB BLOOD ORDERABLES Final Resul t [facility] [address] [place] [address], [place] [phone] from Last 3 Months or Most Recently Relevant to Health Maintenance Insurance MEDICARE MEDICAID - [place] Care Teams Canal Boat Operator Relationship Specialty Start Date End Date Brett Fleming MD [address] [place] [id number] PCP - General Internal Medicine 08/20/24
--- OUTSIDE RECORDS SUMMARY | 2025-05-14 15:55 | XMS_ITS | Patient Health Record ---
Author Organization [facility] Billing Info Address [address] [place] [address] [place] [address] Care Team Providers Care Director Of Nuclear Medicine Name Role Phone DEBBIE RIVERA Unavailable [phone] Allergies Allergen (clinical drug ingredient) Drug/Non Drug [...] Problem Status W/U Status Risk Notes Problem [id number] Closed nondisplaced fracture of neck of right radius, initial encounter (S52.134A) Active confirmed Plan Of Treatment No Information Insurance Providers Payer Name Payer Address Payer Phone Subscriber Number Group Number Insured Name Patient Relationship to Insured Coverage Start Date Coverage End Date [employer] [address] [place], [place] [id number] Becca Sabillon Self - patient is the insured 9 9 Medical (General) History Medical History History ICD Code Depression Anxiety disorder anema Surgical History Surgery Date(Month/Year) gall bladder surgery Endometrial Ablation Hospitalization History Reason Date(Month/Year) see surgical hx
[2025-06-05] VITALS (8 sets, daily range): BP systolic 107–142; BP diastolic 62–97; PULSE 58–72; RESP 16–18; TEMP 36.4–37.1; O2SAT 99–100; BMI 31.1
--- NOTE | ~2025-06-05 | FL_ITS ---
EXAMINATION: XR LUMBAR PUNCTURE CLINICAL INFORMATION: G35 - Multiple sclerosis COMPARISON: None. TECHNIQUE: Following explaining fluoroscopy-guided lumbar puncture procedure, benefits and risk, a written consent was obtained. Patient was placed prone position on fluoroscopy table and marker was placed overlying the L4-5 disc level. Marked area on the skin was cleaned and draped in usual sterile manner. 1% lidocaine was inserted at puncture site. A 20-gauge needle was advanced from a left para midline region intrathecally at the L4-5 disc level under fluoroscopy. After removing the stylet and observing fluid return, CSF was collected in 4 test tubes. Postprocedure stylet was reintroduced and needle removed. Complete hemostasis was achieved at puncture site. Subsequently sterile dressing was applied at the puncture site. FINDINGS: On fluoroscopy images obtained there is maintained vertebral heights and alignment. Mild loss of L4-5 disc height is seen. Approximately 4 mL of clear CSF fluid was collected in 4 test tubes and sent to lab for diagnostic purposes. CSF pressure was not obtained as was not requested by physician. FLUOROSCOPY TIME: 47 seconds DOSE AREA PRODUCT: [id number] uGy-m2 (microgray-meter squared) FL/FL guided lumbar puncture LP IMPRESSION: Successful fluoroscopy-guided L4-5 lumbar puncture performed without immediate complications. The CSF flow was very slow and hence small amount of CSF collected. Electronically signed by: Kadeem Madrigal MD 06/05/2025 02:19 PM EDT
[2025-06-05 10:09] LABS: MANUAL DIFF FLAG NO
[2025-06-05 10:13] LABS: Hematocrit 37.3 % (37.0-47.0); Hemoglobin 12.6 g/dl (12.0-16.0); Imm Gran Abs Auto 0.03 X10*3/uL (0.00-0.03); Imm Gran Pct Auto 0.5 % (0.0-0.4); Lymphocytes Absolute Auto 1.7 X10*3/uL (1.2-4.9); Mean Corpuscular HGB Conc 33.8 g/dl (31.0-35.0); Mean Corpuscular Hemoglobin 31.9 pg (27.0-33.0); Mean Corpuscular Volume 94.4 fL (80.0-98.0); NRBC Abs Auto 0.000 X10*3/uL (0.0-0.012); NRBC Pct Auto 0.0 /100WBC (0.0-0.2); Platelet Count 351 X10*3/uL (160-400); Red Blood Count 3.95 X10*6/uL (4.20-5.50); White Blood Count 5.7 X10*3/uL (4.8-10.8)
[2025-06-05 10:19] LABS: INTERNATIONAL NORM RATIO 0.9 (0.9-1.1); Prothrombin Time 10.1 SEC (10.9-12.4)
[2025-06-05 13:28] LABS: Lymphocytes CSF 100 %; Red Blood Cell CSF 0 MM*3; White Blood Cell CSF 2 MM*3
[2025-06-09 13:34] LABS: Albumin 3.8 g/dL (3.6-5.1); Albumin, CSF 18.6 mg/dL (8.0-42.0); IgG, CSF 2.8 mg/dL (0.8-7.7)
[2025-06-17 11:36] LABS: Oligoclonal Serum Yes
== END 2025-06-05 13:40 | disposition home or self-care (01) ==
PROVIDERS: Radiology Diagnostic Radiology; PCP Student in an Organized Health Care Education/Training Program; Visit Provider Psychiatry & Neurology Neurology
PROC: 009U3ZZ Drainage of Spinal Canal, Percutaneous Approach (ICD-10-PCS; CPT 62270; principal; 2025-06-05 11:00)
DX: G35 Multiple sclerosis (principal); M79.7 Fibromyalgia; M79.2 Neuralgia and neuritis, unspecified; G43.909 Migraine, unspecified, not intractable, without status migrainosus; F33.2 Major depressive disorder, recurrent severe without psychotic features; F41.9 Anxiety disorder, unspecified; F41.0 Panic disorder [episodic paroxysmal anxiety]; Z88.2 Allergy status to sulfonamides; Z88.8 Allergy status to other drugs, medicaments and biological substances
CPT/HCPCS: 36415; 62328; 82042; 82945; 83916; 84157; 85025; 85610; 85652; 86335; 89051

== ENCOUNTER → 2025-06-05 10:56 | Outpatient (BNV) | payer MEDICARE, MEDICAID, SELFPAY | PROVIDERS: PCP Student in an Organized Health Care Education/Training Program; Visit Provider Radiology Diagnostic Radiology | DX: G35 Multiple sclerosis (principal) | CPT/HCPCS: 62328 ==

== ENCOUNTER 2025-06-12 13:41 | Outpatient (AMB) | payer MEDICARE, MEDICAID, SELFPAY ==
--- NOTE | 2025-06-12 13:42 | A.OFFVIS_ITS ---
Intake Visit Reasons: after LP Allergies Sulfa (Sulfonamide Antibiotics) Allergy (Verified 06/05/25 09:59) Diarrhea HPI Comments Details: 54 yo woman with depression, anxiety/panic disorder, headaches, and chronic Multiple Sclerosis. She has moved here from [place] in 2023 to get better health care. She had suffered from psychological symptoms all her life but pysical problems started around 2855-1567. Her first symptom was loss of bowel control. One day her leg gave away and she fell down. Her bladder control was also not good. She never was investigated in [place] as she did not have health insurance. In December of 2024 she had an MRI of brain in [place] that revealed moderately severe bilateral right more than left hemispheric mostly white matter lesions suggestive of chronic demyelinating disease without enhancement. [facility] Medical History (Updated 06/12/25 @ 14:03 by Gisele Dailey MD) Osteoporosis Fibromyalgia Migraine Multiple sclerosis Neuropathic pain Social History Alcohol intake: never Patient Tobacco Use Status: Former Tobacco user Substance Use Type: Marijuana Physical Exam Neuro Other: Mental Status: Alert and oriented to person, place, and time. Normal attention. Normal spontaneous speech, fluency, and comprehension. Cranial Nerves: CN II: Visual mcdonald full to confrontation, visual acuity intact. CN III, IV, : Pupils equal, round, reactive to light and accommodation. Extraocular movements are normal. CN V: Facial sensation is normal. CN VII: Facial movements symmetrical. CN VIII: Hearing intact to bedside conversation is normal. CN IX, X: Palate elevates symmetrically. CN XI: Shoulder shrug and head turn symmetrical. CN XII: Tongue midline without atrophy or fasciculations. Extrapyramidal: Full facial expressions and blinking. No rigidity. Movements are appropriate with no tremor or abnormality. Speech: Normal; no dysarthria or tremor. Extrem Other: Mental Status: Alert and oriented to person, place, and time. Normal attention. Normal spontaneous speech, fluency, and comprehension. No obvious issues with mood and memory. Affect is appropriate. Cranial Nerves: CN II: Visual mcdonald full to confrontation, visual acuity intact. CN III, IV, : Pupils equal, round, reactive to light and accommodation. Extraocular movements are normal. CN V: Facial sensation is normal. CN VII: Facial movements symmetrical. CN VIII: Hearing intact to bedside conversation is normal. CN IX, X: Palate elevates symmetrically. CN XI: Shoulder shrug and head turn symmetrical. CN XII: Tongue midline without atrophy or fasciculations. Motor: Bulk and tone normal in all extremities. No significant muscle weakness in arms and legs. No drift. Reflexes: Deep tendon reflexes 2+ and symmetric. Plantar response down-going bilaterally. Coordination: Bjwdxa-li-hldq and atpn-pj-kuhf testing normal. No dysmetria. Gait and Station: No obvious gait abnormality. No ataxia or instability. Sensory: Intact to light touch, pinprick, and vibration. Romberg is negative. Extrapyramidal: Full facial expressions and blinking. No rigidity. Movements are appropriate with no tremor or abnormality. Speech: Normal; no dysarthria or tremor. Assessment & Plan Assessment & Plan (1) Multiple sclerosis: Comment: LP at [facility] [place] April 2025: WBCs 2, RBCs 0, Glu 53, Pro 31.5, IgG ind: ok MRI brain WWO at [facility] in Dec 2024: Mod to severe b/l, R>L hemispheric, could be demyelinating disease but they are not periventricular, no enhancement, mod severe cerebellar more than cerebral atrophy MRI C + T spine at [facility] in March 2025: No cord lesion, no sig pathology Code(s): G35 - Multiple sclerosis Category: Medical (2) Migraine without aura, not intractable, without status migrainosus: Code(s): G43.009 - Migraine without aura, not intractable, without status migrainosus Category: Medical (3) Neuropathic pain: Code(s): M79.2 - Neuralgia and neuritis, unspecified Category: Medical (4) Cervical spondyloarthritis: Code(s): M47.812 - Spondylosis without myelopathy or radiculopathy, cervical region Category: Medical Qualifiers: Spinal osteoarthritis complication: without myelopathy or radiculopathy Qualified Code(s): M47.812 - Spondylosis without myelopathy or radiculopathy, cervical region Plan Impression: a: Multiple sclerosis b: Anxiety disorder c: Mild cognitive impairment, multifactorial d: Migraine type headaches e: Cervical spondyloarthritis causing neck pain and cracking Rec: a: Will send for OCBs as it was missed on CSF exam b: Teriflunomide 7mg daily for MS control c: Sumatriptan 50mg as needed for headaches d: Continue with behavioral therapy Orders: Orders Oligoclonal Banding Today G35 - Multiple sclerosis Medications: New teriflunomide 7 mg PO DAILY 60 tabs 0RF sumatriptan succinate 50 mg orally one a day as needed PRN; do not exceed 4 doses per 24 hrs 10 tabs 5RF migraine headache 30 days Coding Level of Care Code Est Pt Level 5 (15334) Diagnoses Multiple sclerosis G35 Migraine without aura, not intractable, without status migrainosus G43.009 Neuropathic pain M79.2 Spondylosis of cervical region without myelopathy or radiculopathy M47.812 Spinal osteoarthritis complication: without myelopathy or radiculopathy
--- OUTSIDE RECORDS SUMMARY | 2025-06-12 14:39 | XMS_ITS | Encounter Summary ---
Author Organization [facility] Address [address] [place] [address] Phone Care Team Providers Care Oral And Maxillofacial Pathologist Name Role Phone Pcp, Not Required Primary Care Provider Unavaila ble Pcp, Unknown Unavailable Unavailable Encounter Details Date Type Department Care Team (Late st Contact Info) Description 02/12/2024 Procedure Pass [facility] [place] [address] 1 [place] [address] Social History Tobacco Use Types Packs/Day Years [...] 7:20 PM EDT Lizett Loyola RN * [place] Suicide Severity Rating Scale (Screener/Recent Self-Report) Question [...] on filedocumented in this encounter Care Teams Oral And Maxillofacial Pathologist Relationship Specialty Start Date End Date Pcp, Not Required [address] [place] [address] PCP - General 02/12/24 Pcp, Unknown 02/12/24 documented as of this encounter Additional Source Comments The information contained in this document represents components of the legal health record. It is not the complete legal health record.[facility]
--- OUTSIDE RECORDS SUMMARY | 2025-06-12 14:39 | XMS_ITS | Patient Health Record ---
Author Organization [facility] Address [address] [facility] [address] [place] [address] Support Name Relationship Address Phone Becca Sabillon Guarantor Unknown Unavailable Reason For Referral No Information Plan Of Treatment No Information Insurance Providers Payer Name Payer Address Payer Phone Subscriber Number Group Number Insured Name Patient Relationship to Insured Coverage Start Date Coverage End Date [employer] [address] [place] [address] [id number] Becca Sabillon Self - patient is the insured 2 [place] [address] [place] [address] [id number] Becca Sabillon Self - patient is the insured [place] Acute Care [address] [place] [address] [id number] Becca Sabillon Self - patient is the insured 2 2 [facility] [address] [address] [place] [address] [id number] Becca Sabillon Self - patient is the insured 1 [employer] [address] [place] [address] Becca Sabillon Self - patient is the insured
--- OUTSIDE RECORDS SUMMARY | 2025-06-12 14:39 | XMS_ITS | Clinical Summary ---
Author Organization [address] [facility] Address [address] [place] [address] Phone Care Team Providers Care Traffic Safety Administrator Name Role Phone Brett Fleming MD Primary Care Provider [phone] Allergies Active Allergy Reactions Criticality Noted Date [...] 3:00 PM EDT Consult Orthopedic Surgery - [address] [place] [address] Asher Vicente MD Bilateral carpal tunnel syndrome; Localized osteoarthritis of hand, unspecified laterality from Last 3 Months Immunizations Name Administration [...] care for your loved ones. For example, special needs child caregiver or elderly care for an older adult? [...] PM EDT Office Visit Internal Medicine - [place] [address] [facility] [address] [place] [id number] Brett Fleming MD [address] [facility] [address] [place], [place] [id number] Health Maintenance Due Date Last Done Comments Hepatitis B Vaccines (1 of 3 - 19+ 3-dose series) 1990 Cervical Cancer Screening: P ap Smear 1992 Pneumococcal Vaccine: 50+ Years (1 of 1 - PCV) 2021 Zoster Vaccines (1 of 2) 2021 COVID-19 Vaccine ( - 2023-2 5 season) 2024 Colorectal Cancer [...] Procedure Name Priority Date/Time Associated Diagnosis Comments EXTERNAL XRAY REPORT 06/05/2025 EXTERNAL XRAY REPORT 06/05/2025 VT INJECTION CARPAL TUNNEL THERAPEUTIC Routine 03/13/2025 3:00 PM EDT Bilateral carpal tunnel syndrome MG MAMMO DIGITAL SCREENING W DYLON BILAT Routine 03/11/2025 4:40 PM EDT Encounter for annual physical exam Encounter for screening mammogram for malignant neoplasm of breast LIPID PANEL WITH REFLEX TO DIRECT LDL Routine 02/22/2025 12:33 PM EDT Encounter for annual physical exam Encounter for lipid screening for cardiovascular disease HEPATITIS C ANTIBODY Routine 10/11/2024 2:01 PM EST Routine general medical examination at a health care facility Anxiety attack Irritable bowel syndrome with diarrhea from Last 3 Months or Most Recently Relevant to Health Maintenance Results * External Xray Report (06/05/2025) Only the most recent of2 resultswithin the time period is included. Anatomical Region Laterality Modality Radiographic Mariely ging us Provider [facility] IMG XR PROCEDURES Final Result * VT INJECTION CARPAL TUNNEL THERAPEUTIC (03/13/2025 3:00 PM EDT) Narrative Asher Vicente MD - 03/13/2025 3:00 PM EDT Asher [...] year. Mammo Location: [facility], [address] [place] [address], [address], . -------- FINAL REPORT -------- Dictated By: Beth Lynch Dictated Date: 04/16/2025 16:51 ET Assigned Physician: Beth Lynch Reviewed and Electronically Signed By: Beth Lynch Signed Date: 04/16/2025 16:52 ET Workstation ID: [id number] Transcribed By: Self Edit Transcribed Date: 04/16/2025 [...] year. Mammo Location: [facility], [address] [place] [address], [address], . -------- FINAL REPORT -------- Dictated By: Beth Lynch Dictated Date: 04/16/2025 16:51 ET Assigned Physician: Beth Lynch Reviewed and Electronically Signed By: Beth Lynch Signed Date: 04/16/2025 16:52 ET Workstation ID: [id number] Transcribed By: Self Edit Transcribed Date: 04/16/2025 16:51 ET Brett Fleming MD IMG BI PROCEDURES Final Result * Lipid panel with reflex to direct LDL (02/22/2025 12:33 PM EDT) Cholesterol 170 0 - 200 mg/dL LAB CHEMISTRY METHOD 02/22/2025 6:15 PM EDT [facility] Triglycerides 90 0 - 150 mg/dL LAB CHEMISTRY METHOD 02/22/2025 6:15 PM EDT [facility] HDL 63 >=40 mg/dL LAB CHEMISTRY METHOD 02/22/2025 6:15 PM EDT [facility] LDL Calculated 89 0 - 100 mg/dL LAB CHEMISTRY METHOD 02/22/2025 6:15 PM EDT [facility] VLDL Cholesterol [place] 18 mg/dL LAB CHEMISTRY METHOD 02/22/2025 6:15 PM EDT [facility] Non HDL Chol. (LDL+VLDL) 107 <145 mg/dL LAB CHEMISTRY METHOD 02/22/2025 6:15 PM EDT [facility] Chol/HDL Ratio 2.7 0.0 - 4.4 LAB CHEMISTRY METHOD 02/22/2025 6:15 PM EDT [facility] Blood Venous blood specimen / Unknown Venipuncture / Unknown 02/22/2025 12:33 PM EDT 02/22/2025 12:33 PM EDT us Brett Fleming MD LAB BLOOD ORDERABLES Final Resul t Performing Organization Address City/[facility]/ZIP Co de Phone Number [facility] [address] [place] [address], * Hepatitis C antibody (10/11/2024 2:01 PM EST) Hepatitis C Antibody Negative Negative LAB CHEMISTRY METHOD 10/11/2024 7:15 PM EST [facility] Blood Venous blood specimen / Unknown Venipuncture / Unknown 10/11/2024 2:01 PM EST 10/11/2024 2:01 PM EST us Brett Fleming MD LAB BLOOD ORDERABLES Final Resul t [facility] [address] [place] [address], from Last 3 Months or Most Recently Relevant to Health Maintenance Insurance MEDICARE MEDICAID - [place] Care Teams Traffic Safety Administrator Relationship Specialty Start Date End Date Brett Fleming MD [address] [facility] [address] [place] [address] PCP - General Internal Medicine 08/20/24
--- OUTSIDE RECORDS SUMMARY | 2025-06-12 14:39 | XMS_ITS | Patient Health Record ---
Author Organization [facility] Billing Info Address [address] [place] [address] [place] [address] Care Team Providers Care Project Designer Name Role Phone DEBBIE RIVREA Unavailable [phone] Allergies Allergen (clinical drug ingredient) Drug/Non Drug [...] Problem Status W/U Status Risk Notes Problem [id number] Closed nondisplaced fracture of neck of right radius, initial encounter (S52.134A) Active confirmed Plan Of Treatment No Information Insurance Providers Payer Name Payer Address Payer Phone Subscriber Number Group Number Insured Name Patient Relationship to Insured Coverage Start Date Coverage End Date [employer] [address] [place], [place] [id number] Becca Sabillon Self - patient is the insured 9 9 Medical (General) History Medical History History ICD Code Depression Anxiety disorder anema Surgical History Surgery Date(Month/Year) gall bladder surgery Endometrial Ablation Hospitalization History Reason Date(Month/Year) see surgical hx
== END 2025-06-12 14:04 | disposition home or self-care (01) ==
LOC: HO.HSM 13:41
PROVIDERS: PCP Student in an Organized Health Care Education/Training Program; Visit Provider Psychiatry & Neurology Neurology
DX: G35 Multiple sclerosis (principal); G43.009 Migraine without aura, not intractable, without status migrainosus; M79.2 Neuralgia and neuritis, unspecified; M47.812 Spondylosis without myelopathy or radiculopathy, cervical region
CPT/HCPCS: 99214

== ENCOUNTER 2025-06-12 13:41 | Outpatient (REF) | payer MEDICARE, MEDICAID, SELFPAY | END 2025-06-12 13:42 | disposition home or self-care (01) | LOC: HO.LAB 13:41 | PROVIDERS: PCP Student in an Organized Health Care Education/Training Program; Visit Provider Psychiatry & Neurology Neurology | DX: G35 Multiple sclerosis (principal); G43.009 Migraine without aura, not intractable, without status migrainosus; M79.2 Neuralgia and neuritis, unspecified; M47.812 Spondylosis without myelopathy or radiculopathy, cervical region | CPT/HCPCS: 99212 ==

== ENCOUNTER 2025-08-14 13:46 | Outpatient (AMB) | payer MEDICARE, MEDICAID, SELFPAY ==
--- NOTE | 2025-08-14 13:59 | MHC.OFFVIS ---
Intake Visit Reasons: 2 months for MS Allergies codeine Allergy (Unknown, Verified 08/13/25 10:55) Unknown trazodone Allergy (Unknown, Verified 08/13/25 10:55) Unknown Sulfa (Sulfonamide Antibiotics) Allergy (Verified 06/05/25 09:59) Diarrhea Medication List - Last Reconciled 08/14/25 by Gisele Dailey MD aripiprazole (Abilify) 45 mg PO DAILY bupropion HCl SR 200 mg PO QAM buspirone 15 mg PO TID cholecalciferol (vitamin D3) 50 mcg PO DAILY cholestyramine (with sugar) 4 gram 1 ea PO TID duloxetine 60 mg PO BID 2 weeks famotidine 40 mg PO BID ferrous sulfate 300 mg PO DAILY hydroxyzine HCl 25 mg PO QID PRN ibandronate 150 mg PO melatonin 3 mg PO BEDTIME PRN ondansetron 4 mg PO Q8H PRN propranolol 20 mg PO BID quetiapine 100 mg PO BEDTIME sertraline 25 mg PO DAILY sumatriptan succinate 50 mg orally one a day as needed PRN; do not exceed 4 doses per 24 hrs 30 days teriflunomide 7 mg PO DAILY topiramate XR 25 mg PO DAILY HPI Comments Details: 54 yo woman with depression, anxiety/panic disorder, headaches, and chronic Multiple Sclerosis. She has moved here from [place] in 2023 to get better health care. She had suffered from psychological symptoms all her life but physical problems started around 1145-7147. Her first symptom was loss of bowel control. One day her leg gave away and she fell down. Her bladder control was also not good. She never was investigated in [place] as she did not have health insurance. In December of 2024 she had an MRI of brain in [place] that revealed moderately severe bilateral right more than left hemispheric mostly white matter lesions suggestive of chronic demyelinating disease without enhancement. [facility] Medical History (Updated 08/14/25 @ 14:14 by Gisele Dailey MD) Depression Iron deficiency anemia GERD (gastroesophageal reflux disease) Osteoporosis Fibromyalgia Migraine Multiple sclerosis Neuropathic pain Social History Alcohol intake: never Patient Tobacco Use Status: Former Tobacco user Substance Use Type: Marijuana Physical Exam Neuro Other: Mental Status: Alert and oriented to person, place, and time. Normal attention. Normal spontaneous speech, fluency, and comprehension. Cranial Nerves: CN II: Visual mcdonald full to confrontation, visual acuity intact. CN III, IV, : Pupils equal, round, reactive to light and accommodation. Extraocular movements are normal. CN V: Facial sensation is normal. CN VII: Facial movements symmetrical. CN VIII: Hearing intact to bedside conversation is normal. CN IX, X: Palate elevates symmetrically. CN XI: Shoulder shrug and head turn symmetrical. CN XII: Tongue midline without atrophy or fasciculations. Motor: Bulk and tone normal in all extremities. No significant muscle weakness in arms and legs. No drift. Reflexes: Deep tendon reflexes 2+ and symmetric. Plantar response down-going bilaterally. Coordination: Ffehht-jz-ince and ypwg-xn-zeyd testing normal. No dysmetria. Gait and Station: No obvious gait abnormality. No ataxia or instability. Extrapyramidal: Full facial expressions and blinking. No rigidity. Movements are appropriate with no tremor or abnormality. Speech: Normal; no dysarthria or tremor. Assessment & Plan Assessment & Plan (1) Multiple sclerosis: Comment: LP at [facility] in April 2025: WBCs 2, RBCs 0, Glu 53, Pro 31.5, IgG ind: ok MRI brain WWO at [facility] in Dec 2024: Mod to severe b/l, R>L hemispheric, could be demyelinating disease but they are not periventricular, no enhancement, mod severe cerebellar more than cerebral atrophy MRI C + T spine at [facility] W in March 2025: No cord lesion, no sig pathology Code(s): G35 - Multiple sclerosis Category: Medical (2) Neuropathic pain: Code(s): M79.2 - Neuralgia and neuritis, unspecified Category: Medical (3) Cervical spondyloarthritis: Code(s): M47.812 - Spondylosis without myelopathy or radiculopathy, cervical region Category: Medical Qualifiers: Spinal osteoarthritis complication: without myelopathy or radiculopathy Qualified Code(s): M47.812 - Spondylosis without myelopathy or radiculopathy, cervical region (4) Migraine without aura, not intractable, without status migrainosus: Code(s): G43.009 - Migraine without aura, not intractable, without status migrainosus Category: Medical (5) Spastic bladder: Code(s): N32.89 - Other specified disorders of bladder Category: Medical Plan Impression: a: Multiple sclerosis b: Anxiety disorder c: Mild cognitive impairment, multifactorial d: Migraine type headaches e: Cervical spondyloarthritis causing neck pain and cracking f: Spastic bladder Rec: a: Teriflunomide 7mg daily for MS control. We will try to find out what happened with approval process c: Sumatriptan 50mg as needed for headaches d: Propranolol 20 mg twice a day e: Topiramate 25mg one at night f: Oxybutynin 10mg one at night Medications: New oxybutynin chloride ER 10 mg PO DAILY 60 tabs 0RF propranolol 20 mg PO BID 180 tabs 0RF topiramate 25 mg orally one at night; 90 tabs 1RF Refilled teriflunomide 7 mg PO DAILY 60 tabs 0RF Coding Level of Care Code Est Pt Level 4 (90926) Diagnoses Multiple sclerosis G35 Neuropathic pain M79.2 Spondylosis of cervical region without myelopathy or radiculopathy M47.812 Spinal osteoarthritis complication: without myelopathy or radiculopathy Migraine without aura, not intractable, without status migrainosus G43.009 Spastic bladder N32.89
--- OUTSIDE RECORDS SUMMARY | 2025-08-14 19:47 | XMS_ITS | Patient Health Record ---
Author Organization [facility] Address [address] [facility] [address] [place] [address] Support Name Relationship Address Phone Becca Sabillon Guarantor Unknown Unavailable Reason For Referral No Information Plan Of Treatment No Information Insurance Providers Payer Name Payer Address Payer Phone Subscriber Number Group Number Insured Name Patient Relationship to Insured Coverage Start Date Coverage End Date Code [employer] [address] [place] [address] [id number] Becca Sabillon Self - patient is the insured 2 [place] [address] [place] [address] [id number] Becca Sabillon Self - patient is the insured Medicaid [place] Acute Care [address] [place] [address] [id number] Becca Sabillon Self - patient is the insured 2 2 [facility] [address] [address] [place] [address] [id number] Becca Sabillon Self - patient is the insured 1 [employer] [address] [place] [address] Becca Sabillon Self - patient is the insured
--- OUTSIDE RECORDS SUMMARY | 2025-08-14 19:47 | XMS_ITS | Encounter Summary ---
Author Organization [facility] Address [address] [place] [address] Phone Care Team Providers Care Team Manager Name Role Phone Pcp, Not Required Primary Care Provider Unavaila ble Pcp, Unknown Unavailable Unavailable Encounter Details Date Type Department Care Team (Late st Contact Info) Description 02/12/2024 Procedure Pass [facility], [address] 1 [place] [address] Social History Tobacco Use Types Packs/Day Years [...] 7:20 PM EDT Lizett Loyola RN * [place] Suicide Severity Rating Scale (Screener/Recent Self-Report) Question [...] on filedocumented in this encounter Care Teams Team Manager Relationship Specialty Start Date End Date Pcp, Not Required [address] [place] [address] PCP - General 02/12/24 Pcp, Unknown 02/12/24 documented as of this encounter Additional Source Comments The information contained in this document represents components of the legal health record. It is not the complete legal health record.[facility]
--- OUTSIDE RECORDS SUMMARY | 2025-08-14 19:48 | XMS_ITS | Clinical Summary ---
Author Organization [facility] Address [address] [place] [address] Phone Care Team Providers Care Salicylic Acid Blender Name Role Phone Brett Fleming MD Primary Care Provider [phone] Allergies Active Allergy Reactions Criticality Noted Date [...] 03/03/2006 Overview (08/31/2024): chronic: PT Shots tried Immunizations Immunization Administration Dates Next Due Td Tetanus diptheria [...] for your loved ones. For example, child welfare counselor or elderly care for an older adult? [...] Date Recorded What is your living situation? Unrecognized valu e 02/11/2025 Education Answer Date Recorded What is [...] 03/13/2025 3:16 PM EDT Plan of Treatment Health Maintenance Due Date Last Done Comments Colorectal Cancer Screening: Colonoscopy 1971 Hepatitis B Vaccines (1 of 3 - 19+ 3-dose series) 1990 Cervical Cancer Screening: P ap Smear 1992 Pneumococcal Vaccine: 50+ Years (1 of 1 - PCV) 2021 Zoster Vaccines (1 of 2) 2021 HIV Screening 08/20/2024 Medicare Annual Wellness Visit 08/20/2024 Osteoporosis Screening (Bone Density Screening) 08/20/2024 COVID-19 Vaccine (1 - 2023-2 5 season) 2025 Influenza Vaccine (#1) 2025 Social Influencers of Health Screening 02/11/2026 02/11/2025 Breast Cancer Screening 03/11/2027 03/11/2025 Cholesterol Screening (Lipid Panel) 02/22/2030 02/22/2025, 10/11/2024, 12/03/2002 DTaP,Tdap,and Td Vaccines (3 - Td or Tdap) 02/12/2035 02/12/2025, 12/03/2002 RSV Immunization Adult Patients (1 - 1-dose 75+ series) 2046 Hepatitis C Screening Completed 10/11/2024 Depression Screening [...] XRAY REPORT 06/05/2025 EXTERNAL XRAY REPORT 06/05/2025 MG MAMMO DIGITAL SCREENING W DYLON BILAT [...] EST Routine general medical examination at a [place] care facility Anxiety attack Irritable bowel syndrome with diarrhea from Last 3 Months or Most Recently Relevant to Health Maintenance Results * External Xray Report (06/05/2025) Only the most recent of2 resultswithin the time period is included. Anatomical Region Laterality Modality Radiographic Mariely ging us Provider [facility] XR PROCEDURES Final Result * MG Mammo Digital Screening w Dylon bilat (03/11/2025 4:40 PM EDT) Anatomical Region Laterality Modality Breast Bilateral Mammography 04/16/2025 4:51 PM EDT Impressions 04/16/2025 4:52 PM EDT No evidence of breast malignancy. BI-RADS CATEGORY: 1 - NEGATIVE RECOMMENDATION: Screening bilateral mammogram is recommended in 1 year. Mammo Location: [facility], [address] [place] [address], [id number], . -------- FINAL REPORT -------- Dictated By: Beth Lynch Dictated Date: 04/16/2025 16:51 ET Assigned Physician: Beth Lynch Reviewed and Electronically Signed By: Beth Lynch Signed Date: 04/16/2025 16:52 ET Workstation ID: [id number] Transcribed By: Self Edit Transcribed Date: 04/16/2025 [...] year. Mammo Location: [facility], [address] [place] [address], [id number], . -------- FINAL REPORT -------- Dictated By: Beth Lynch Dictated Date: 04/16/2025 16:51 ET Assigned Physician: Beth Lynch Reviewed and Electronically Signed By: Beth Lynch Signed Date: 04/16/2025 16:52 ET Workstation ID: [id number] Transcribed By: Self Edit Transcribed Date: 04/16/2025 16:51 ET Brett Fleming MD IM BI PROCEDURES Final Result * Lipid panel [...] t [facility] [address] [place] [address], [place] [phone] * Hepatitis C antibody (10/11/2024 2:01 PM EST) Hepatitis C Antibody Negative Negative LAB CHEMISTRY METHOD 10/11/2024 7:15 PM EST [facility] Blood Venous blood specimen / Unknown Venipuncture / Unknown 10/11/2024 2:01 PM EST 10/11/2024 2:01 PM EST Brett Fleming MD LAB BLOOD ORDERABLES Final Resul t [facility] [address] [place] [address], [place] [phone] from Last 3 Months or Most Recently Relevant to Health Maintenance Insurance MEDICARE MEDICAID - [place] Care Teams Salicylic Acid Blender Relationship Specialty Start Date End Date Brett Fleming MD [address] [place] [id number] PCP - General Internal Medicine 08/20/24
--- OUTSIDE RECORDS SUMMARY | 2025-08-14 19:48 | XMS_ITS | Clinical Summary ---
Author Organization [facility] Address [address] [address] Phone Care Team Providers Care Placement Interviewer Name Role Phone Pcp, Not Required Primary Care Provider Unavaila ble Pcp, Unknown Unavailable Unavailable Allergies No known active allergies Medications propranoloL (INDERAL) 10 MG immediate release tablet Take 2 tablets (20 mg total) by mouth 2 (two) times a day for 14 days. 56 tablet 02/13/2024 Active buPROPion (WELLBUTRIN SR) 100 MG SR 12 hr tablet Take 2 tablets (200 mg total) by mouth 2 (two) times a day for 14 days. 56 tablet 02/13/2024 Active dicyclomine (BENTYL) 10 MG capsule Take 1 capsule (10 mg total) by mouth 4 (four) times a day before meals and nightly for 14 days. 56 capsule 02/13/2024 Active topiramate (TOPAMAX) 100 MG tablet Take 1 tablet (100 mg total) by mouth 2 (two) times a day for 14 days. 28 tablet 02/13/2024 Active ibandronate (BONIVA) 150 mg tablet Take 1 tablet (150 mg total) by mouth every 30 (thirty) days. Take in AM with glass of water prior to food, don't lie down for 30 minutes. 1 tablet 02/13/2024 Active busPIRone (BUSPAR) 15 MG tablet Take 1 tablet (15 mg total) by mouth 3 (three) times a day. 90 tablet 04/06/2024 Active Social History Tobacco Use Types Packs/Day Years [...] Orientation Straight 02/13/2024 11 :36 AM EDT Last Filed Vital Signs Vital Sign Reading Time Taken Comments Blood Pressure 127/61 02/20/2024 2:45 PM EDT Pulse 57 02/20/2024 2:45 PM EDT Temperature 36.2 C (97.2 F) 02/13/2024 4:16 AM EDT Respiratory Rate 16 02/13/2024 4:16 AM EDT Oxygen Saturation 99% 02/20/2024 2:45 PM EDT Inhaled Oxygen Concentration - - Weight - - Height - - Body Mass Index - - Plan of Treatment Health Maintenance Due Date Last Done Comments Adult Td,Tdap Booster 1971 LIPID PANEL 1971 DEPRESSION SCREENING 1983 SMOKING Hx and SMOKELESS TOB ACCO SCREENING 1984 HEPATITIS C SCREENING 1989 HIV ONE-TIME SCREENING (18-6 5 YEARS) 1989 PAP SMEAR 1992 MAMMOGRAM 2011 COLOGUARD 2016 COLONOSCOPY 2016 COLORECTAL CANCER SCREENING 2016 FIT TEST 2016 FOBT 2016 SIGMOIDOSCOPY 2016 VIRTUAL COLONOSCOPY 2016 PNEUMOCOCCAL VACCINES (50+ y ears) (1 of 1 - PCV) 2021 ZOSTER VACCINES (1 of 2) 2021 INFLUENZA VACCINE (#1) 2025 COVID-19 VACCINE (1 - 2024-2 6 season) 2025 RSV VACCINE (1 - 1-dose 75+ series) 2046 HEPATITIS A VACCINES Aged Out No long er eligible based on patient's age to complete this topic HIB VACCINES Aged Out No longer eligi ble based on patient's age to complete this topic MENINGOCOCCAL VACCINES (ACWY) Aged Out No longer eligible based on patient's age to complete this topic MENINGOCOCCAL VACCINES (B) Aged Out N o longer eligible based on patient's age to complete this topic Medical Devices Not on file Insurance [facility]IC[facility] [place] [facility] [place] [facility] Care Teams Placement Interviewer Relationship Specialty Start Date End Date Pcp, Not Required [address] [place] [id number] PCP - General 02/12/24 Pcp, Unknown 02/12/24 Additional Source Comments The information contained in this document represents components of the legal health record. It is not the complete legal health record.[facility]
--- OUTSIDE RECORDS SUMMARY | 2025-08-14 19:48 | XMS_ITS | Patient Health Record ---
Author Organization [facility] Billing Info Address [address] [place] [address] [place] [address] Care Team Providers Care Hospitality Intern Name Role Phone DEBBIE RIVERA Unavailable [phone] Allergies Allergen (clinical drug ingredient) Drug/Non Drug [...] Problem Status W/U Status Risk Notes Problem [id number] Closed nondisplaced fracture of neck of right radius, initial encounter (S52.134A) Active confirmed Plan Of Treatment No Information Insurance Providers Payer Name Payer Address Payer Phone Subscriber Number Group Number Insured Name Patient Relationship to Insured Coverage Start Date Coverage End Date [employer] [address] [place], [place] [id number] Becca Sabillon Self - patient is the insured 9 9 Medical (General) History Medical History History ICD Code Depression Anxiety disorder anema Surgical History Surgery Date(Month/Year) gall bladder surgery Endometrial Ablation Hospitalization History Reason Date(Month/Year) see surgical hx
== END 2025-08-14 14:15 | disposition home or self-care (01) ==
LOC: HO.HSM 13:47
PROVIDERS: PCP Student in an Organized Health Care Education/Training Program; Visit Provider Psychiatry & Neurology Neurology
DX: G35.D Multiple sclerosis, unspecified (principal); M79.2 Neuralgia and neuritis, unspecified; M47.812 Spondylosis without myelopathy or radiculopathy, cervical region; G43.009 Migraine without aura, not intractable, without status migrainosus; N32.89 Other specified disorders of bladder
CPT/HCPCS: 99214

== ENCOUNTER → 2025-08-14 13:46 | Outpatient (BNVA) | payer MEDICARE, MEDICAID, SELFPAY | PROVIDERS: PCP Student in an Organized Health Care Education/Training Program; Visit Provider Psychiatry & Neurology Neurology | DX: G35.D Multiple sclerosis, unspecified (principal); G43.009 Migraine without aura, not intractable, without status migrainosus; M47.812 Spondylosis without myelopathy or radiculopathy, cervical region; N32.89 Other specified disorders of bladder; M79.2 Neuralgia and neuritis, unspecified | CPT/HCPCS: 99212 ==

== ENCOUNTER 2025-08-15 14:00 | Emergency (ER) | payer MEDICARE, MEDICAID, SELFPAY ==
--- NOTE | ~2025-08-15 | XR_ITS ---
EXAMINATION: XR RIBS, RIGHT CLINICAL INFORMATION: pain s/p fall COMPARISON: None available. TECHNIQUE: 3 views of the right ribs were obtained. FINDINGS: Lungs are clear. No consolidation, pneumothorax, or pleural effusion. The cardiomediastinal silhouette and pulmonary vasculature are normal. Osseous structures are unremarkable. Ribs are intact. No fractures are identified. Cholecystectomy clips are incidentally noted. XR/XR ribs RT min 3V w CXR1V IMPRESSION: No acute findings in the thorax. Lungs are clear. No definitive rib fracture is identified. Electronically signed by: Tyrone Monge MD 08/15/2025 03:07 PM EDT
--- NOTE | ~2025-08-15 | XR_ITS ---
EXAMINATION: XR ELBOW, RIGHT CLINICAL INFORMATION: pain s/p fall COMPARISON: None available. TECHNIQUE: AP, lateral, and oblique views of the right elbow. FINDINGS: No acute cortical disruption or malalignment. No metallic or radiopaque foreign body. No subcutaneous emphysema. No gross joint effusion. No lytic or blastic lesions. XR/XR wrist LT min 3V IMPRESSION: No acute fracture or dislocation. EXAMINATION: XR WRIST, LEFT CLINICAL INFORMATION: pain s/p fall COMPARISON: None available. TECHNIQUE: PA, lateral, and oblique views of the left wrist. Scaphoid projection. FINDINGS: No acute cortical disruption or malalignment. No lytic or blastic lesions. No metallic or radiopaque foreign body. No joint effusion. IMPRESSION: No acute fracture or dislocation. Electronically signed by: Dinesh Santos MD 08/15/2025 03:05 PM EDT
--- NOTE | ~2025-08-15 | XR_ITS ---
EXAMINATION: XR ELBOW, RIGHT CLINICAL INFORMATION: pain s/p fall COMPARISON: None available. TECHNIQUE: AP, lateral, and oblique views of the right elbow. FINDINGS: No acute cortical disruption or malalignment. No metallic or radiopaque foreign body. No subcutaneous emphysema. No gross joint effusion. No lytic or blastic lesions. XR/XR elbow RT 2V IMPRESSION: No acute fracture or dislocation. EXAMINATION: XR WRIST, LEFT CLINICAL INFORMATION: pain s/p fall COMPARISON: None available. TECHNIQUE: PA, lateral, and oblique views of the left wrist. Scaphoid projection. FINDINGS: No acute cortical disruption or malalignment. No lytic or blastic lesions. No metallic or radiopaque foreign body. No joint effusion. IMPRESSION: No acute fracture or dislocation. Electronically signed by: Dinesh Santos MD 08/15/2025 03:05 PM EDT
[2025-08-15 14:13] VITALS: BP 114/68; PULSE 90; RESP 18; TEMP 37; O2SAT 98; BMI 29.4
--- NOTE | 2025-08-15 14:13 | ED.GENADULT ---
HPI - General Adult General Chief complaint: Fall Stated complaint: Injury Time Seen by Provider: 08/15/25 14:30 Related Data Home Medications ?Medication ?Instructions ?Recorded ?Confirmed bupropion HCl 200 mg tablet,12 hr 200 mg PO QAM 05/07/25 08/14/25 sustained-release buspirone 15 mg tablet 15 mg PO TID 05/07/25 08/14/25 cholestyramine (with sugar) 4 gram 1 ea PO TID 05/07/25 06/05/25 powder for susp in a packet famotidine 40 mg tablet 40 mg PO BID 05/07/25 08/14/25 ibandronate 150 mg tablet 150 mg PO 05/07/25 08/14/25 ondansetron 4 mg disintegrating 4 mg PO Q8H PRN nausea 05/07/25 06/05/25 tablet cholecalciferol (vitamin D3) 50 50 mcg PO DAILY 06/05/25 06/05/25 mcg (2,000 unit) tablet aripiprazole 15 mg tablet (Abilify) 45 mg PO DAILY 08/13/25 ferrous sulfate 300 mg (60 mg 300 mg PO DAILY 08/13/25 08/14/25 iron)/5 mL oral liquid hydroxyzine HCl 25 mg tablet 25 mg PO QID PRN 08/13/25 08/14/25 melatonin 3 mg tablet 3 mg PO BEDTIME PRN 08/13/25 08/14/25 quetiapine 100 mg tablet 100 mg PO BEDTIME 08/13/25 sertraline 25 mg tablet 25 mg PO DAILY 08/13/25 Previous Rx's ?Medication ?Instructions ?Recorded duloxetine 60 mg capsule,delayed 60 mg PO BID 2 weeks #28 caps 02/24/25 release sumatriptan succinate 50 mg tablet 50 mg PO .COMPLEX PRN migraine 06/12/25 headache 30 days #10 tabs propranolol 20 mg tablet 20 mg PO BID #180 tabs 08/14/25 teriflunomide 7 mg tablet 7 mg PO DAILY #60 tabs 08/14/25 topiramate 25 mg tablet 25 mg PO .COMPLEX #90 tabs 08/14/25 oxybutynin chloride 10 mg 10 mg PO DAILY #90 tabs 08/15/25 tablet,extended release 24 hr Allergies Allergy/AdvReac Type Severity Reaction Status Date / Time codeine Allergy Unknown Unknown Verified 08/15/25 14:14 trazodone Allergy Unknown Unknown Verified 08/15/25 14:14 Sulfa (Sulfonamide Allergy Diarrhea Verified 08/15/25 14:14 Antibiotics) [facility] Past Medical History Medical History Depression Iron deficiency anemia GERD (gastroesophageal reflux disease) Osteoporosis Fibromyalgia Migraine Multiple sclerosis Neuropathic pain Social History Social History Alcohol intake: never Patient Tobacco Use Status: Former Tobacco user Smoked in Last 30 Days: No Use of substances other than those prescribed or required for medical reasons: No Substance Use Type: Marijuana Advance Directives: No Advance Directives Information Provided: No Physical Exam ED Vital Signs: BMI result Body Mass Index 29.4 Course Course Course Narrative: This is an RME: Additional HPI, ROS, PE not included below will be deferred to primary provider. RME assessment and note performed by: Sammie Overton PA-C This is a 58-xeoy-goj-female, with a hx of MS, osteoporosis, and fibromyalgia, who presents to the ER with complaints of right sided rib pain s/p mechanical fall. Hx of MS and had two falls yesterday, and struck the right ribs. No headstrike or LOC. Not on anticoagulation. Plan: xrays, further ER eval needed Reevaluation(s) Reevaluation #1: duplicate chart Medications Administered Discontinued Medications Generic Name Dose Route Start Last Admin Trade Name Freq PRN Reason Stop Dose Admin Ibuprofen 600 mg 08/15/25 14:36 08/15/25 14:43 Ibuprofen 600 Mg Tablet PO 08/15/25 14:37 600 mg ONCE ONE Administration Oxycodone HCl 5 mg 08/15/25 14:36 08/15/25 14:44 Oxycodone Hcl Immed Release 5 Mg Tablet PO 08/15/25 14:37 5 mg ONCE ONE Administration Discharge Plan Discharge Clinical Impression: Chest wall contusion, Contusion of elbow, right Patient Disposition: Home, Self-Care Instructions: Chest Contusion (ED) Additional Instructions: Take [id number] Tylenol 500 mg tablet or ibuprofen 200 mg tablet every 6 hours if needed for pain. Follow-up with your primary doctor as scheduled. Prescriptions: No Action oxybutynin chloride 10 mg tablet extended release 24hr 10 mg PO DAILY Qty: 90 0RF duloxetine 60 mg capsule,delayed release(DR/EC) 60 mg PO BID 14 Days Qty: 28 0RF cholecalciferol (vitamin D3) 50 mcg (2,000 unit) tablet 50 mcg PO DAILY famotidine 40 mg tablet 40 mg PO BID ondansetron 4 mg tablet,disintegrating 4 mg PO Q8H PRN (Reason: nausea) buspirone 15 mg tablet 15 mg PO TID bupropion HCl 200 mg tablet sustained-release 12 hr 200 mg PO QAM cholestyramine (with sugar) 4 gram powder in packet 1 ea PO TID ibandronate 150 mg tablet 150 mg PO sumatriptan succinate 50 mg tablet 50 mg PO .COMPLEX PRN (Reason: migraine headache) 30 Days Qty: 10 5RF Rx Instructions: 50 mg orally one a day as needed PRN; do not exceed 4 doses per 24 hrs melatonin 3 mg tablet 3 mg PO BEDTIME PRN ferrous sulfate 300 mg (60 mg iron)/5 mL liquid 300 mg PO DAILY hydroxyzine HCl 25 mg tablet 25 mg PO QID PRN aripiprazole [Abilify] 15 mg tablet 45 mg PO DAILY quetiapine 100 mg tablet 100 mg PO BEDTIME sertraline 25 mg tablet 25 mg PO DAILY topiramate 25 mg tablet 25 mg PO .COMPLEX Qty: 90 1RF Rx Instructions: 25 mg orally one at night; propranolol 20 mg tablet 20 mg PO BID Qty: 180 0RF teriflunomide 7 mg tablet 7 mg PO DAILY Qty: 60 0RF Interventions: ED Discharge Assessment Last Done: 08/15/25 16:42 Discharge Date/Time: 08/15/25 16:43 Print Language: Citizen Of [place]
--- NOTE | 2025-08-15 14:38 | ED.FALL ---
HPI - Fall General Chief Complaint: Fall Stated Complaint: Injury Time Seen by Provider: 08/15/25 14:30 Source: patient and family Mode of arrival: ambulatory Limitations: no limitations History of Present Illness ED Provider: DR. Roque HPI Narrative: 54-year-old female history of MS in history of frequent fall due to imbalance from MS presented after she fell last night around midnight twice complaining of right elbow pain, and right side chest wall pain pain is more with movement or taking deep breath, no fever, no coughing, no shortness of breath. Declined head injury or LOC, no neck pain, no abdominal pain, no skin ecchymosis. Related Data Home Medications ?Medication ?Instructions ?Recorded ?Confirmed bupropion HCl 200 mg tablet,12 hr 200 mg PO QAM 05/07/25 08/14/25 sustained-release buspirone 15 mg tablet 15 mg PO TID 05/07/25 08/14/25 cholestyramine (with sugar) 4 gram 1 ea PO TID 05/07/25 06/05/25 powder for susp in a packet famotidine 40 mg tablet 40 mg PO BID 05/07/25 08/14/25 ibandronate 150 mg tablet 150 mg PO 05/07/25 08/14/25 ondansetron 4 mg disintegrating 4 mg PO Q8H PRN nausea 05/07/25 06/05/25 tablet cholecalciferol (vitamin D3) 50 50 mcg PO DAILY 06/05/25 06/05/25 mcg (2,000 unit) tablet aripiprazole 15 mg tablet (Abilify) 45 mg PO DAILY 08/13/25 ferrous sulfate 300 mg (60 mg 300 mg PO DAILY 08/13/25 08/14/25 iron)/5 mL oral liquid hydroxyzine HCl 25 mg tablet 25 mg PO QID PRN 08/13/25 08/14/25 melatonin 3 mg tablet 3 mg PO BEDTIME PRN 08/13/25 08/14/25 quetiapine 100 mg tablet 100 mg PO BEDTIME 08/13/25 sertraline 25 mg tablet 25 mg PO DAILY 08/13/25 Previous Rx's ?Medication ?Instructions ?Recorded duloxetine 60 mg capsule,delayed 60 mg PO BID 2 weeks #28 caps 02/24/25 release sumatriptan succinate 50 mg tablet 50 mg PO .COMPLEX PRN migraine 06/12/25 headache 30 days #10 tabs propranolol 20 mg tablet 20 mg PO BID #180 tabs 08/14/25 teriflunomide 7 mg tablet 7 mg PO DAILY #60 tabs 08/14/25 topiramate 25 mg tablet 25 mg PO .COMPLEX #90 tabs 08/14/25 oxybutynin chloride 10 mg 10 mg PO DAILY #90 tabs 08/15/25 tablet,extended release 24 hr Allergies Allergy/AdvReac Type Severity Reaction Status Date / Time codeine Allergy Unknown Unknown Verified 08/15/25 14:14 trazodone Allergy Unknown Unknown Verified 08/15/25 14:14 Sulfa (Sulfonamide Allergy Diarrhea Verified 08/15/25 14:14 Antibiotics) Review of Systems Review of Systems: All other systems are reviewed and are negative Constitutional: Reports as per HPI and Reports no additional constitutional complaints Eyes: Reports as per HPI and Reports no additional eye complaints Reports system reviewed and no additional complaints, except as documented Cardiovascular: Reports as per HPI and Reports no additional cardiovascular complaints Respiratory: Reports as per HPI and Reports no additional respiratory complaints Gastrointestinal: Reports as per HPI and Reports no additional gastrointestinal complaints Genitourinary: Reports no additional female genitourinary complaints Musculoskeletal: Reports no additional musculoskeletal complaints Skin/Breast: Reports system reviewed and no additional complaints, except as docu Psychiatric: Reports no additional psychiatric complaints Endocrine: Reports no additional endocrine complaints Hematologic/Lymphatic: Reports no additional hematologic/lymphatic complaints Allergic/Immunologic: Reports no additional allergic/immunologic complaints Reports system reviewed and no additional complaints, except as documented and Reports Abnormal speech present [facility] Past Medical History Medical History Depression Iron deficiency anemia GERD (gastroesophageal reflux disease) Osteoporosis Fibromyalgia Migraine Multiple sclerosis Neuropathic pain Social History Social History Alcohol intake: never Patient Tobacco Use Status: Former Tobacco user Substance Use Type: Marijuana Advance Directives: No Advance Directives Information Provided: No Physical Exam Vital Signs: Vital Signs: Last Vital Signs Temp 98.6 F 08/15/25 14:13 Pulse 90 08/15/25 14:13 Resp 18 08/15/25 14:13 BP 114/68 08/15/25 14:13 Pulse Ox 98 08/15/25 14:13 O2 Del Method Room Air 08/15/25 14:13 BMI result Body Mass Index 29.4 Vital signs have been reviewed and appear to be correct. Blood pressure elevated. Heart rate normal. Respiratory rate normal. Temperature normal. Oxygen saturation normal. Appearance: Alert. Oriented X3. No acute distress. Head: Normal external exam. Normocephalic. Atraumatic. No Mercado signs noted. No raccoon eyes noted Eyes: PERRLA. EOMI. Conjunctiva and sclera normal. Eyelids normal. ENT: TM's Normal. Pharynx normal. Uvula midline. Moist mucous membranes. No trismus noted. No drooling noted. No muffled voice noted. Neck: Normal inspection. Neck supple. FROM. No adenopathy. Thyroid Normal. No meningeal signs. No neck mass noted. CVS: Normal heart rate and rhythm. Heart sound normal. No murmurs noted. Pulses normal throughout. Respiratory: No respiratory distress. Painless inspiration. Breath sounds normal. No wheezes/rales/rhonchi noted. Left chest wall tenderness, no step-off no deformity, no ecchymosis on the chest. No accessory muscle usage noted or decreased air movement noted. Abdomen: Soft and nontender. Bowel sounds normal in all 4 quadrants. No distention noted. No organomegaly noted. No visible injury noted. Back: No CVA tenderness. Full range of motion noted. Skin: Skin warm and dry. Normal skin color. Normal skin turgor. No rashes/lesions/lacerations noted. Extremities: No lower extremity edema. Extremities exhibit normal range of motion. Extremities nontender. Neuro: Oriented X 3. Cranial nerve exam: II-XII are grossly intact No motor deficit. No sensory deficit. Reflexes normal. Course Reevaluation(s) Reevaluation #1: History of MS s/p mechanical fall. Right chest wall pain, x-ray revealed no rib fracture, patient was instructed to continue with breathing exercising to avoid atelectasis lung collapse. No elbow or wrist fracture. Time: 16:38 Medications Administered Discontinued Medications Generic Name Dose Route Start Last Admin Trade Name Freq PRN Reason Stop Dose Admin Ibuprofen 600 mg 08/15/25 14:36 08/15/25 14:43 Ibuprofen 600 Mg Tablet PO 08/15/25 14:37 600 mg ONCE ONE Administration Oxycodone HCl 5 mg 08/15/25 14:36 08/15/25 14:44 Oxycodone Hcl Immed Release 5 Mg Tablet PO 08/15/25 14:37 5 mg ONCE ONE Administration Medical Decision Making Differential Diagnosis Differential Diagnoses: The differential diagnosis associated with the presentation includes (Mechanical fall, head injury, cervical spine injury, chest injury, back injury, abdominal injury, extremities injury.) Admission/Observation Consideration of admission/observation: Escalation of care including admission/observation considered Independent Interpretation I performed an independent interpretation of an: Plain X-Ray (Right rib x-ray:R Elbow:R Wrist: No acute fracture.) Radiology Impression Discussion of test interpretation with radiology: I have reviewed the radiologist's reading. Discharge Plan Discharge Clinical Impression: Chest wall contusion, Contusion of elbow, right Patient Disposition: Home, Self-Care Instructions: Chest Contusion (ED) Additional Instructions: Take [id number] Tylenol 500 mg tablet or ibuprofen 200 mg tablet every 6 hours if needed for pain. Follow-up with your primary doctor as scheduled. Prescriptions: No Action oxybutynin chloride 10 mg tablet extended release 24hr 10 mg PO DAILY Qty: 90 0RF duloxetine 60 mg capsule,delayed release(DR/EC) 60 mg PO BID 14 Days Qty: 28 0RF cholecalciferol (vitamin D3) 50 mcg (2,000 unit) tablet 50 mcg PO DAILY famotidine 40 mg tablet 40 mg PO BID ondansetron 4 mg tablet,disintegrating 4 mg PO Q8H PRN (Reason: nausea) buspirone 15 mg tablet 15 mg PO TID bupropion HCl 200 mg tablet sustained-release 12 hr 200 mg PO QAM cholestyramine (with sugar) 4 gram powder in packet 1 ea PO TID ibandronate 150 mg tablet 150 mg PO sumatriptan succinate 50 mg tablet 50 mg PO .COMPLEX PRN (Reason: migraine headache) 30 Days Qty: 10 5RF Rx Instructions: 50 mg orally one a day as needed PRN; do not exceed 4 doses per 24 hrs melatonin 3 mg tablet 3 mg PO BEDTIME PRN ferrous sulfate 300 mg (60 mg iron)/5 mL liquid 300 mg PO DAILY hydroxyzine HCl 25 mg tablet 25 mg PO QID PRN aripiprazole [Abilify] 15 mg tablet 45 mg PO DAILY quetiapine 100 mg tablet 100 mg PO BEDTIME sertraline 25 mg tablet 25 mg PO DAILY topiramate 25 mg tablet 25 mg PO .COMPLEX Qty: 90 1RF Rx Instructions: 25 mg orally one at night; propranolol 20 mg tablet 20 mg PO BID Qty: 180 0RF teriflunomide 7 mg tablet 7 mg PO DAILY Qty: 60 0RF Print Language: [place]
[2025-08-15] MEDS: oxyCODONE HCl Immed Release 5 MG TABLET PO (14:44)
[2025-08-15 16:42] VITALS: BP 112/62; PULSE 88; RESP 17; TEMP 37; O2SAT 99
--- OUTSIDE RECORDS SUMMARY | 2025-08-15 18:32 | XMS_ITS | Clinical Summary ---
Author Organization [address] [facility] Address [address] [place] [address] Phone Care Team Providers Care Strategic Partnership Specialist Name Role Phone Brett Fleming MD Primary Care Provider [phone] Allergies Active Allergy Reactions Criticality Noted Date [...] care for your loved ones. For example, assistant child care teacher or elderly care for an older [...] EST Routine general medical examination at a [facility] care facility Anxiety attack Irritable bowel syndrome [...] year. Mammo Location: [facility], [address] [place] [address], [address], . -------- FINAL REPORT -------- Dictated By: Beth Lynch Dictated Date: 04/16/2025 16:51 ET Assigned Physician: Beth Lynch Reviewed and Electronically Signed By: Beth Lynch Signed Date: 04/16/2025 16:52 ET Workstation ID: [id number] Transcribed By: Self Edit Transcribed Date: 04/16/2025 [...] year. Mammo Location: [facility], [address] [place] [address], [address], . -------- FINAL REPORT -------- Dictated By: Beth Lynch Dictated Date: 04/16/2025 16:51 ET Assigned Physician: Beth Lynch Reviewed and Electronically Signed By: Beth Lynch Signed Date: 04/16/2025 16:52 ET Workstation ID: [id number] Transcribed By: Self Edit Transcribed Date: 04/16/2025 16:51 ET Brett Fleming MD IM BI PROCEDURES Final Result * Lipid panel with reflex to direct LDL (02/22/2025 12:33 PM EDT) Cholesterol 170 0 - 200 mg/dL LAB CHEMISTRY METHOD 02/22/2025 6:15 PM EDT [facility] Triglycerides 90 0 - 150 mg/dL LAB CHEMISTRY METHOD 02/22/2025 6:15 PM EDT [facility] HDL 63 >=40 mg/dL LAB CHEMISTRY METHOD 02/22/2025 6:15 PM EDT [facility] LDL Calculated 89 0 - 100 mg/dL LAB CHEMISTRY METHOD 02/22/2025 6:15 PM EDT [facility] VLDL Cholesterol Ch[place] 18 mg/dL LAB CHEMISTRY METHOD 02/22/2025 6:15 PM EDT [facility] Non HDL Chol. (LDL+VLDL) 107 <145 mg/dL LAB CHEMISTRY METHOD 02/22/2025 6:15 PM EDT [facility] Chol/HDL Ratio 2.7 0.0 - 4.4 LAB CHEMISTRY METHOD 02/22/2025 6:15 PM EDT [facility] Blood Venous blood specimen / Unknown Venipuncture / Unknown 02/22/2025 12:33 PM EDT 02/22/2025 12:33 PM EDT Brett Fleming MD LAB BLOOD ORDERABLES Final Resul t [facility] [address] [place] [address], [place] [phone] * Hepatitis C antibody (10/11/2024 2:01 PM EST) Hepatitis C Antibody Negative Negative LAB CHEMISTRY METHOD 10/11/2024 7:15 PM EST [facility] Blood Venous blood specimen / Unknown Venipuncture / Unknown 10/11/2024 2:01 PM EST 10/11/2024 2:01 PM EST Brett Fleming MD LAB BLOOD ORDERABLES Final Resul t [facility] [address] [place] [address], [place] [phone] from Last 3 Months or Most Recently Relevant to Health Maintenance Insurance MEDICARE MEDICAID - [place] Care Teams Strategic Partnership Specialist Relationship Specialty Start Date End Date Brett Fleming MD [address] [place] [phone] PCP - General Internal Medicine 08/20/24
--- OUTSIDE RECORDS SUMMARY | 2025-08-15 18:32 | XMS_ITS | Patient Health Record ---
Author Organization [facility] Address [address] [facility] [address] [place] [address] Support Name Relationship Address Phone Becca Sabillon Guarantor Unknown Unavailable Reason For Referral No Information Plan Of Treatment No Information Insurance Providers Payer Name Payer Address Payer Phone Subscriber Number Group Number Insured Name Patient Relationship to Insured Coverage Start Date Coverage End Date [employer] [address] [place] [address] [phone] [id number] Becca Sabillon Self - patient is the insured 2 [place] [address] [place] [address] [id number] Becca Sabillon Self - patient is the insured [place] Acute [place] [address] [place] [address] [id number] Becca Sabillon Self - patient is the insured 2 2 [facility] [address] [address] [place] [address] [id number] Becca Sabillon Self - patient is the insured 1 [employer] [address] [place] [address] Becca Sabillon Self - patient is the insured
--- OUTSIDE RECORDS SUMMARY | 2025-08-15 18:32 | XMS_ITS | Clinical Summary ---
Author Organization [facility] Address [address] [address] Phone Care Team Providers Care Social Service Manager Name Role Phone Pcp, Not Required [...] file Insurance MEDICARE PART A & B [facility] MEDICARE PART A & B [place] & [place] A & B [facility] & [place] [facility] Care Teams Social Service Manager Relationship Specialty Start Date End Date Pcp, Not Required [address] [place] [address] PCP - General 02/12/24 Pcp, Unknown 02/12/24 Additional Source Comments The information contained in this document represents components of the legal health record. It is not the complete legal health record.[facility]
--- OUTSIDE RECORDS SUMMARY | 2025-08-15 18:32 | XMS_ITS | Patient Health Record ---
Author Organization [facility] Billing Info Address [address] [place] [address] [place] [address] Care Team Providers Care Machine Puller And Laster Name Role Phone DEBBIE RIVERA Unavailable [phone] Allergies Allergen (clinical drug ingredient) Drug/Non Drug [...] Problem Status W/U Status Risk Notes Problem [id number] Closed nondisplaced fracture of neck of right radius, initial encounter (S52.134A) Active confirmed Plan Of Treatment No Information Insurance Providers Payer Name Payer Address Payer Phone Subscriber Number Group Number Insured Name Patient Relationship to Insured Coverage Start Date Coverage End Date [employer] [address] [place], [place] [id number] Becca Sabillon Self - patient is the insured 9 9 Medical (General) History Medical History History ICD Code Depression Anxiety disorder anema Surgical History Surgery Date(Month/Year) gall bladder surgery Endometrial Ablation Hospitalization History Reason Date(Month/Year) see surgical hx
--- OUTSIDE RECORDS SUMMARY | 2025-08-15 18:32 | XMS_ITS | Encounter Summary ---
Author Organization [facility] Address [address] [place] [address] Phone Care Team Providers Care Dev Ops Engineer Name Role Phone Pcp, Not Required Primary Care Provider Unavaila ble Pcp, Unknown Unavailable Unavailable Encounter Details Date Type Department Care Team (Late st Contact Info) Description 02/12/2024 Procedure Pass [place] [facility] Emergency Imaging, [address] 1 [place] [address] Social History Tobacco Use Types Packs/Day Years [...] 7:20 PM EDT Lizett Loyola RN * [place] Suicide Severity Rating Scale (Screener/Recent Self-Report) Question [...] on filedocumented in this encounter Care Teams Dev Ops Engineer Relationship Specialty Start Date End Date Pcp, Not Required [address] [place] [address] PCP - General 02/12/24 Pcp, Unknown 02/12/24 documented as of this encounter Additional Source Comments The information contained in this document represents components of the legal health record. It is not the complete legal health record.[facility]
== END 2025-08-15 16:43 | disposition home or self-care (01) ==
PROVIDERS: Emergency Provider Emergency Medicine
DX: S50.01XA Contusion of right elbow, initial encounter (principal); S20.211A Contusion of right front wall of thorax, initial encounter; G35.D Multiple sclerosis, unspecified; M81.0 Age-related osteoporosis without current pathological fracture; W18.39XA Other fall on same level, initial encounter; Z91.81 History of falling; Y93.89 Activity, other specified; Y92.89 Other specified places as the place of occurrence of the external cause; Y99.8 Other external cause status
CPT/HCPCS: 71101; 73070; 73110; 99283; 99284

== ENCOUNTER → 2025-08-15 14:16 | Outpatient (BNV) | payer MEDICARE, MEDICAID, SELFPAY | PROVIDERS: Emergency Provider Emergency Medicine; Visit Provider Radiology Diagnostic Radiology | DX: R07.89 Other chest pain (principal); Z04.3 Encounter for examination and observation following other accident | CPT/HCPCS: 71101 ==

== ENCOUNTER 2025-10-16 11:35 | Outpatient (AMB) | payer MEDICARE, MEDICAID, SELFPAY ==
--- OUTSIDE RECORDS SUMMARY | 2025-10-16 11:38 | XMS_ITS | Patient Health Record ---
Author Organization [facility] Billing Info Address [address] [place], [place] [address] [address] Phone [phone] Care Team Providers Care Mobile Equipment Servicer Name Role Phone NICOLE BURCH, MINN Unavailable [phone] Allergies Allergen (clinical drug ingredient) Drug/Non Drug Allergy documented on EMR Reaction Allergy Type Onset Date Status Sulfa Unknown Drug Allergy Active Reason For Referral No Information Medications Medication SIG (Take, Route, Frequency, Duration) Notes Start Date End Date Diagnosis (ICD Code) Status Gabapentin 600 MG Tablet 1 tablet Orally Once a day; Duration: 30 day(s) Active Lansoprazole 15 MG Capsule Delayed Release 1 capsule Orally Twice a day Active Hydrocodone-Acetamino phen 10-325 MG Tablet 1 tablet as needed Orally every 6 hrs Active BuPROPion HCl 100 MG Tablet 1 tablet Orally Twice a day; Duration: 30 day(s) Active Omeprazole 20 MG Capsule Delayed Release 1 capsule Orally twice a day Active Clonazepam 2 MG Tablet 1 tablet Orally twice a day Active Ranitidine HCl 150 MG Capsule 1 capsule Orally Once a day; Duration: 30 day(s) Active Dicyclomine HCl 20 MG Tablet 1 tablet Orally Four times a day Active Cyclobenzaprine HCl 10 MG Tablet 1 tablet as needed Orally Two times a day Active Duloxetine HCl 60 MG Capsule Delayed Release Particles 1 capsule Orally Twice a day Active Social History Sex Observation Social History Observation Description Sex Observation Female Social History Social History Social Info Question Answer Notes Tobacco Status: Patient is a non tobacco user Illicit Drug Use: Patient/Family reports: Prior illici t drug use Alcohol Use: Patient does not use alcohol *DO NOT USE * Tobacco Status (CQW): Patient is Former smoker Problems Problem Type SNOMED Code ICD Code Dates Problem Status W/U Status Risk Notes Problem Closed fracture of neck of radius (74971105) Closed nondisplaced fracture of neck of right radius, initial encounter (S52.134A) Added On: 019 Active confirmed Plan Of Treatment Pending Test Test Name Order Date XRAY-SPINE, LUMBOSACRAL; 4 + VIEWS (7211 0) [facility] 04/08/2023 Insurance Providers Payer Name Payer Address Payer Phone Subscriber Number Group Number Insured Name Patient Relationship to Insured Coverage Start Date Coverage End Date [employer] [address] [place], [place] [id number] Becca Sabillon Self - patient is the insured 9 9 Medical (General) History Medical History History ICD Code Depression Anxiety disorder anema Surgical History Surgery Date(Month/Year) gall bladder surgery Endometrial Ablation Hospitalization History Reason Date(Month/Year) see surgical hx
--- OUTSIDE RECORDS SUMMARY | 2025-10-16 11:38 | XMS_ITS | Clinical Summary ---
Author Organization [facility] Address [address] [address] Phone Care Team Providers Care Manager Utilization Management Name Role Phone Pcp, Not Required Primary [...] A & B [facility] MEDICARE PART A & [place] & [facility] & [place] M[place] [facility] Care Teams Manager Utilization Management Relationship Specialty Start Date End Date Pcp, Not Required PCP - General 02/12/24 Pcp, Unknown 02/12/24 Additional Source Comments The information contained in this document represents components of the legal health record. It is not the complete legal health record.[facility]
--- OUTSIDE RECORDS SUMMARY | 2025-10-16 11:38 | XMS_ITS | Clinical Summary ---
Author Organization 175 [facility] Address [address] [place] [address] Phone Care Team Providers Care Installer Technician Name Role Phone Brett Fleming MD Primary Care Provider [phone] Allergies Active Allergy Reactions Criticality Noted Date Comments Codeine 10/30/2024 Guaifenesin 04/21/2006 guiatuss AC caused sever skin sensations / Penicillins 01/03/2006 Sulfa (Sulfonamide Antibiotics) 01/03/2006 Medications buPROPion SR (WELLBUTRIN SR) 200 mg 12 hr tablet Take 1 Tablet by mouth 2 times daily. Active busPIRone (BUSPAR) 15 mg tablet Take 1 Tablet by mouth 3 times daily. Active diphenoxylate-atro pine (LOMOTIL) 2.5-0.025 mg per tablet Take 1 Tablet by mouth 4 times daily as needed. Active DULoxetine (Drizalma Sprinkle) 60 mg capsule, delayed rel sprinkle Take by mouth. Active ibandronate (BONIVA) 150 mg tablet Take 1 Tablet by mouth every 30 days. 08/13/20 24 Active rimegepant (Nurtec) 75 mg dispersible tablet Take by mouth. Active dicyclomine (BENTYL) 20 mg tablet Take 1 tablet (20 mg total) by mouth 4 (four) times a day. 120 each 10/30/19 25 026 Active cholestyramine (QUESTRAN) 4 gram powder Take 1 packet (4 g total) by mouth 3 (three) times a day with meals. Dissolve in 8 oz of liquid and drink before a meal 90 packet 11 10/30/19 25 Active cloNIDine (CATAPRES) 0.1 mg tablet TAKE 1 TABLET BY MOUTH EVERY NIGHT AT BEDTIME NEEDED TO PREVENT NIGHT SWEATS DURING SLEEP 02/01/20 Active busPIRone (BUSPAR) 5 mg tablet Take 1 tablet (5 mg total) by mouth. 01/18/20 25 Active clonazePAM (KlonoPIN) 1 mg tablet [...] (one) time each day. 90 tablet 3 02/26/20 25 026 Active teriflunomide 7 mg tablet Take 1 tablet by mouth 1 (one) time each day. 08/15/20 25 Active naproxen (NAPROSYN) 500 mg tablet Take 1 tablet (500 mg total) by mouth 2 (two) times a day if needed for mild pain (pain). 30 tablet 08/27/20 25 026 Active acetaminophen (Tylenol Extra Strength) 500 mg tablet Take 2 tablets (1,000 mg total) by mouth every 6 (six) hours if needed for mild pain. 90 tablet 3 08/27/20 25 Active cyclobenzaprine (FLEXERIL) 10 mg tabletIndications: Generalized body aches,Pulled muscle Take 1 tablet (10 mg total) by mouth 3 (three) times a day if needed for muscle spasms. 30 tablet 2 08/27/20 25 026 Active ondansetron ODT (ZOFRAN-ODT) 4 mg disintegrating tablet DISSOLVE 1 TABLET ON THE TONGUE EVERY 8 HOURS NEEDED FOR NAUSEA 90 tablet 1 09/10/20 25 Active famotidine (PEPCID) 40 mg tablet TAKE 1 TABLET(40 MG) BY MOUTH TWICE DAILY 180 tablet 10/02/20 25 Active famotidine (PEPCID) 40 mg tablet Take 1 tablet (40 mg total) by mouth 2 (two) times a day. 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 Pain in joint, multiple sites 07/18/2006 Disturbance of skin sensation 07/18/2006 Overview (08/31/2024): diffuse pain Irritable bowel syndrome 07/18/2006 Tobacco use disorder 07/18/2006 Anxiety state 03/03/2006 Overview (08/31/2024): Panic attacks--psychiatry Esophageal reflux 03/03/2006 Lumbago 03/03/2006 Overview (08/31/2024): chronic: PT Shots tried Encounters Date Type Department Care Team Description 08/27/2025 8:30 AM EST Office Visit Internal Medicine [address] [address] Brett Fleming MD Generalized body aches (Primary Dx); Fall, sequela; MS (multiple sclerosis); Moderately severe major depression (CMS/HCC V24, CMS/HCC V28); Balance problem; Pulled muscle 08/23/2025 Telephone Internal Medicine - [address] [address] Brett Fleming MD from Last 3 Months Immunizations Immunization Administration Dates Next Due Td [...] your loved ones. For example, early childhood education specialist or elderly care for an older [...] Sign Reading Time Taken Comments Blood Pressure 104/68 08/27/2025 8:24 AM EST Pulse 60 08/27/2025 8:24 AM EST Temperature 36.6 C (97.8 F) 08/27/2025 8:24 AM EST Respiratory Rate - - Oxygen Saturation 98% 08/27/2025 8:24 AM EST Inhaled Oxygen Concentration - - Weight 71.7 kg (158 lb) 08/27/2025 8:24 AM EST Height 154.9 cm (5' 1 ) 03/13/2025 3:16 PM EDT Body Mass Index 29.85 03/13/2025 3:16 PM EDT Plan of Treatment Upcoming Encounters Date Type Department Care Team ([facility] st Contact Info) Description 02/26/2026 1:00 PM EDT Office Visit Internal Medicine - [address] [place] [address] Brett Fleming MD 175 [facility] [address] [place] [address] Health Maintenance Due Date Last Done Comments Colorectal Cancer Screening: Colonoscopy 1971 Drug Screen 1971 Non-Opioid Controlled Substance Agreement 1971 Hepatitis B Vaccines (1 of 3 - 19+ 3-dose series) 1990 Cervical Cancer Screening: P ap Smear 1992 Pneumococcal Vaccine: 50+ Years (1 of 1 - PCV) 2021 Zoster Vaccines (1 of 2) 2021 HIV Screening 08/20/2024 Medicare Annual Wellness Visit 08/20/2024 Osteoporosis Screening (Bone Density Screening) 08/20/2024 COVID-19 Vaccine (1 - 2024-2 6 season) 2025 Influenza Vaccine (#1) 2025 Social [...] Procedure Name Priority Date/Time Associated Diagnosis Comments MG MAMMO DIGITAL SCREENING W DYLNO BILAT Routine 03/11/2025 4:40 PM EDT Encounter [...] Recently Relevant to Health Maintenance Results * MG Mammo Digital Screening w Dylon bilat (03/11/2025 4:40 PM EDT) Anatomical Region Laterality Modality Breast Bilateral Mammography 04/16/2025 4:51 PM EDT Impressions 04/16/2025 4:52 PM EDT No evidence of breast malignancy. BI-RADS CATEGORY: 1 - NEGATIVE RECOMMENDATION: Screening bilateral mammogram is recommended in 1 year. Mammo Location: [facility], [address] [place] [address], [address], . -------- FINAL REPORT -------- Dictated By: Beth Lynch Dictated Date: 04/16/2025 16:51 ET Assigned Physician: Beth Lynch Reviewed and Electronically Signed By: Beth Lynch Signed Date: 04/16/2025 16:52 ET Workstation ID: [id number] Transcribed By: Self Edit Transcribed Date: 04/16/2025 [...] year. Mammo Location: [facility], [address] [place] [address], [address], . -------- FINAL REPORT -------- Dictated By: Beth Lynch Dictated Date: 04/16/2025 16:51 ET Assigned Physician: Beth Lynch Reviewed and Electronically Signed By: Beth Lynch Signed Date: 04/16/2025 16:52 ET Workstation ID: [id number] Transcribed By: Self Edit Transcribed Date: 04/16/2025 16:51 ET Brett Fleming MD IM BI PROCEDURES Final Result * Lipid panel with reflex to direct LDL (02/22/2025 12:33 PM EDT) Cholesterol 170 0 - 200 mg/dL LAB CHEMISTRY METHOD 02/22/2025 6:15 PM EDT [facility] Triglycerides 90 0 - 150 mg/dL LAB CHEMISTRY METHOD 02/22/2025 6:15 PM EDT [facility] HDL 63 >=40 mg/dL LAB CHEMISTRY METHOD 02/22/2025 6:15 PM EDT [facility] LDL Calculated 89 0 - 100 mg/dL LAB CHEMISTRY METHOD 02/22/2025 6:15 PM EDT [facility] VLDL Cholesterol Ch[place] 18 mg/dL LAB CHEMISTRY METHOD 02/22/2025 6:15 PM EDT [facility] Non HDL Chol. (LDL+VLDL) 107 <145 mg/dL LAB CHEMISTRY METHOD 02/22/2025 6:15 PM EDT [facility] Chol/HDL Ratio 2.7 0.0 - 4.4 LAB CHEMISTRY METHOD 02/22/2025 6:15 PM EDT [facility] Blood Venous blood specimen / Unknown Venipuncture / Unknown 02/22/2025 12:33 PM EDT 02/22/2025 12:33 PM EDT Brett Fleming MD LAB BLOOD ORDERABLES Final Resul t Performing Organization Address City/[facility]/ZIP Co de Phone Number [facility] [address] [place] [address], [place] [phone] * Hepatitis C antibody (10/11/2024 2:01 PM EST) Hepatitis C Antibody Negative Negative LAB CHEMISTRY METHOD 10/11/2024 7:15 PM EST [facility] Blood Venous blood specimen / Unknown Venipuncture / Unknown 10/11/2024 2:01 PM EST 10/11/2024 2:01 PM EST Brett Fleming MD LAB BLOOD ORDERABLES Final Resul t [facility] [address] [place] [address], [place] [phone] from Last 3 Months or Most Recently Relevant to Health Maintenance Insurance MEDICARE MEDICAID - [place] Care Teams Installer Technician Relationship Specialty Start Date End Date Brett Fleming MD [address] [place] [phone] PCP - General Internal Medicine 08/20/24
--- OUTSIDE RECORDS SUMMARY | 2025-10-16 11:38 | XMS_ITS | Patient Health Record ---
Author Organization [facility] Address [address] [facility] [address] [place] [address] Support Name Relationship Address Phone Becca Sabillon Guarantor Unknown Unavailable Reason For Referral No Information Plan Of Treatment No Information Insurance Providers Payer Name Payer Address Payer Phone Subscriber Number Group Number Insured Name Patient Relationship to Insured Coverage Start Date Coverage End Date [employer] [address] [place] [address] [id number] Becca Sabillon Self - patient is the insured 2 [place] [address] [place] [address] [id number] Becca Sabillon Self - patient is the insured [place] Acute [place] [address] [place] [address] [id number] Becca Sabillon Self - patient is the insured 2 2 [facility] [address] [address] [place] [address] [id number] Becca Sabillon Self - patient is the insured 1 [employer] [address] [place] [address] Becca Sabillon Self - patient is the insured
--- OUTSIDE RECORDS SUMMARY | 2025-10-16 11:38 | XMS_ITS | Encounter Summary ---
Author Organization [facility] Address [address] [place] [address] Phone Care Team Providers Care Assistant Professor Of Nursing Name Role Phone Pcp, Not Required Primary Care Provider Unavaila ble Pcp, Unknown Unavailable Unavailable Encounter Details Date Type Department Care Team (Late st Contact Info) Description 02/12/2024 Procedure Pass [facility] Emergency Imaging, [address] [place] [address] Social History Tobacco Use Types Packs/Day Years [...] AM EDT documented as of this encounter Plan of Treatment Not on file documented as of this encounter Visit Diagnoses Not on filedocumented in this encounter Care Teams Assistant Professor Of Nursing Relationship Specialty Start Date End Date Pcp, Not Required PCP - General 02/12/24 Pcp, Unknown 02/12/24 documented as of this encounter Additional Source Comments The information contained in this document represents components of the legal health record. It is not the complete legal health record.[facility]
--- NOTE | 2025-10-16 12:12 | MHC.OFFVIS ---
Intake Visit Reasons: 2 month follow up Allergies codeine Allergy (Unknown, Verified 08/15/25 14:14) Unknown trazodone Allergy (Unknown, Verified 08/15/25 14:14) Unknown Sulfa (Sulfonamide Antibiotics) Allergy (Verified 08/15/25 14:14) Diarrhea HPI Comments Details: 54 yo woman with depression, anxiety/panic disorder, headaches, and chronic Multiple Sclerosis. She has moved here from [place] in 2023 to get better health care. She had suffered from psychological symptoms all her life but physical problems started around [id number]. Her first symptom was loss of bowel control. One day her leg gave away and she fell down. Her bladder control was also not good. She never was investigated in [place] as she did not have health insurance. In December of 2024 she had an MRI of brain in [place] that revealed moderately severe bilateral right more than left hemispheric mostly white matter lesions suggestive of chronic demyelinating disease without enhancement. She is presenting for follow-up of multiple sclerosis and to discuss recent falls. She has a diagnosis of chronic multiple sclerosis and is managed on a once-daily oral medication. The patient reports increased frequency of falls, including three falls in one night after her last appointment, with the third resulting in a hard impact to the floor. This fall caused persistent rib pain, and although she went to the ER, no fractures were found. She also reports falling down the stairs at the beginning of the week. She describes a loss of balance where her head seems to lead the fall and she is unable to grab onto objects for support. She also reports constantly dropping things. She owns a walker and a cane but does not appear to use them consistently. The patient has a history of what she describes as spells since childhood, which involve a loss of control over her arms and legs, inability to speak, and slurred speech. These episodes have varied in duration from a few minutes to up to 45 minutes. While her mother used to think she was faking, her son has witnessed these events. Her MRI shows cerebellar atrophy, which is known to cause balance problems. The patient reports a history of drinking for a few years but denies current or significant past alcohol use, stating that it always made her sick and gave her diarrhea. Her last drink was reportedly in 2004. Her father is an alcoholic. [facility] Medical History Depression Iron deficiency anemia GERD (gastroesophageal reflux disease) Osteoporosis Fibromyalgia Migraine Multiple sclerosis Neuropathic pain Social History Alcohol intake: never Patient Tobacco Use Status: Former Tobacco user Substance Use Type: Marijuana Review of Systems Narrative - Neurological: Reports recurrent falls, loss of balance, and constantly dropping items. - Reports a history of episodes since childhood involving loss of motor control in her arms and legs and slurred speech, lasting up to 45 minutes. - Takes medication for headaches. - Denies seizure prior to falls. - Musculoskeletal: Reports persistent rib pain from a fall. - Genitourinary: Takes medication for bladder issues. - Gastrointestinal: Reports a history of diarrhea with alcohol consumption. Physical Exam Neuro Other: Mental Status: Alert and oriented to person, place, and time. Normal attention. Normal spontaneous speech, fluency, and comprehension. Cranial Nerves: CN II: Visual mcdonald full to confrontation, visual acuity intact. CN III, IV, : Pupils equal, round, reactive to light and accommodation. Extraocular movements are normal. CN V: Facial sensation is normal. CN VII: Facial movements symmetrical. CN VIII: Hearing intact to bedside conversation is normal. CN IX, X: Palate elevates symmetrically. CN XI: Shoulder shrug and head turn symmetrical. CN XII: Tongue midline without atrophy or fasciculations. Gait: Cautious. Extrapyramidal: Full facial expressions and blinking. No rigidity. Movements are appropriate with no tremor or abnormality. Speech: Normal; no dysarthria or tremor. Assessment & Plan Assessment & Plan (1) Multiple sclerosis: Comment: LP at [facility] in April 2025: WBCs 2, RBCs 0, Glu 53, Pro 31.5, IgG ind: ok MRI brain [facility] at [facility] in Dec 2024: Mod to severe b/l, R>L hemispheric, demyelinating type, including in corpus callosum, no enhancement, mod severe cerebellar more than cerebral atrophy MRI C + T spine at [facility] in March 2025: No cord lesion, no sig pathology Code(s): G35 - Multiple sclerosis Category: Medical (2) Migraine without aura, not intractable, without status migrainosus: Code(s): G43.009 - Migraine without aura, not intractable, without status migrainosus Category: Medical (3) Cervical spondyloarthritis: Code(s): M47.812 - Spondylosis without myelopathy or radiculopathy, cervical region Category: Medical Qualifiers: Spinal osteoarthritis complication: without myelopathy or radiculopathy Qualified Code(s): M47.812 - Spondylosis without myelopathy or radiculopathy, cervical region (4) Neuropathic pain: Code(s): M79.2 - Neuralgia and neuritis, unspecified Category: Medical (5) Spastic bladder: Code(s): N32.89 - Other specified disorders of bladder Category: Medical (6) Cerebellar degeneration: Code(s): G31.9 - Degenerative disease of nervous system, unspecified Category: Medical (7) Multifactorial gait disorder: Code(s): R26.89 - Other abnormalities of gait and mobility Category: Medical Plan Impression: a: Multiple sclerosis b: Anxiety disorder c: Mild cognitive impairment, multifactorial d: Migraine type headaches e: Cervical spondyloarthritis causing neck pain and cracking f: Spastic bladder g: Cerebellar degeneration h: Multifactorial gait disorder i: Possible seizure disorder Rec: a: Teriflunomide (Aubagio) 7mg daily for MS control. c: Sumatriptan 50mg as needed for headaches d: Propranolol 20 mg twice a day e: Topiramate 25mg one at night f: Oxybutynin 10mg one at night g: EEG h: Cane or a walker for safety to avoid falling, which is a constant risk for her. I reviewed the patient's brain MRI with her, pointing out the shrunken cerebellum and explaining that this is the cause of her balance problems and falls. I strongly advised her to use a cane or walker to prevent further falls and to avoid alcohol completely, as it can worsen her condition. I explained that her long-standing spells are likely seizures, which are common in MS and can also cause falls. We discussed the plan to order an EEG and bloodwork to investigate for seizures. I confirmed we will continue her MS medication and provided a refill. I informed her we would follow up after the EEG results are available. Orders: Orders EEG Routine Today G40.909 - Epilepsy, unspecified, not intractable, without status epilepticus Liver Panel Today G35 - Multiple sclerosis Coding Level of Care Code Est Pt Level 5 (66435) Diagnoses Multiple sclerosis G35 Migraine without aura, not intractable, without status migrainosus G43.009 Spondylosis of cervical region without myelopathy or radiculopathy M47.812 Spinal osteoarthritis complication: without myelopathy or radiculopathy Neuropathic pain M79.2 Spastic bladder N32.89 Cerebellar degeneration G31.9 Multifactorial gait disorder R26.89 Time Spent (min) 40
== END 2025-10-16 12:35 | disposition home or self-care (01) ==
LOC: HO.HSM 11:36
PROVIDERS: PCP Student in an Organized Health Care Education/Training Program; Visit Provider Psychiatry & Neurology Neurology
DX: G35.D Multiple sclerosis, unspecified (principal); G43.009 Migraine without aura, not intractable, without status migrainosus; M47.812 Spondylosis without myelopathy or radiculopathy, cervical region; M79.2 Neuralgia and neuritis, unspecified; N32.89 Other specified disorders of bladder; G31.9 Degenerative disease of nervous system, unspecified; R26.89 Other abnormalities of gait and mobility
CPT/HCPCS: 99215

== ENCOUNTER 2025-10-16 11:35 | Outpatient (REF) | payer MEDICARE, MEDICAID, SELFPAY ==
[2025-10-16 13:40] LABS: Alanine Aminotransferase 17 U/L (0-31); Albumin Level 3.9 g/dL (3.5-5.0); Alkaline Phosphatase 88 U/L (39-117); Aspartate Amino Transferase 18 U/L (5-31); Total Protein 6.6 g/dL (6.5-8.0)
== END 2025-10-16 11:36 | disposition home or self-care (01) ==
LOC: HO.LAB 11:35
PROVIDERS: PCP Student in an Organized Health Care Education/Training Program; Visit Provider Psychiatry & Neurology Neurology
DX: G35.D Multiple sclerosis, unspecified (principal); G43.009 Migraine without aura, not intractable, without status migrainosus; M47.812 Spondylosis without myelopathy or radiculopathy, cervical region; M79.2 Neuralgia and neuritis, unspecified; N32.89 Other specified disorders of bladder; G31.9 Degenerative disease of nervous system, unspecified; R26.89 Other abnormalities of gait and mobility
CPT/HCPCS: 36415; 80076; 99212